=== PATIENT | male | born 1965 | race Caucasian/White ===

== ENCOUNTER → 2016-10-17 | Day surgery (SDC) | payer OTHER ==
[~2016-10-17] MED LIST: ASPI81TA81 PO; DIGO0.25 PO; FLUO60TA PO; FURO80TA PO; GABA300C5 PO; INSU1INJ14 SQ; LOSA50TA PO; MAGN250T9 PO; MEPERIDINE HCL 25 MG/ML VIAL IV ONE; MIDAZOLAM HCL 2 MG/2 ML VIAL IV ONE; MIRA33504 PO; OXYC1CAP PO; PROPOFOL 200 MG/20 ML AMP IV ONE; SIMV20TA PO; SODIUM CHLORIDE 0.9% 10 ML VIAL ONE; TEMA15CA PO; TRIAMCINOLONE ACETONIDE 40 MG/ML VIAL I-ARTICULR ONE; WARF-23 PO
--- NOTE | 2016-10-24 08:17 | M6 ---
cc: CHRISTIANO JEFFERY M.D., WILLIAM R. M.D. DATE: 10/17/2016 DATE OF : 1965 PROCEDURE Fluoroscopically guided T1 translaminar epidural steroid injection left of the midline. PREPROCEDURE NOTE Mr. Lopez was seen back in November of 2015 with left upper extremity pain and cervical bulging disc. His symptoms resolved following two cervical epidural steroid injections. Then in April the patient had an extensive heart surgery during which time his left arm was extended laterally and in a cephalad direction. When he woke up from the surgery his left arm was numb and flaccid and that has been slowly returning so it is possible that much of his left arm pain is from a brachial plexus stretch injury. However, we are proceeding with a single cervical epidural steroid injection today in hopes of providing some improvement. PROCEDURE NOTE History and physical was completed and signed. Consent was signed. Procedure site was marked. Medications were listed and reconciled. Pain score was recorded. Allergies were noted. Timeout was taken. Fluoroscopy time was recorded where applicable. Sedation was administered or directed by Dr. Chery. The patient was given oxygen. The patient was monitored by a registered nurse. Total procedure time was greater than 15 minutes. An IV was started, blood pressure cuff, pulse oximeter and EKG were applied. The patient was placed in the prone position on a Krzysztof table, sedated with small amounts of Demerol and propofol titrated to effect. Vital signs were monitored and remained stable throughout the procedure. The cervical area was prepped with alcohol and 10% Betadine solution, draped with sterile drapes. Fluoroscopy was used to visualize the T1-T2 translaminar space. The skin was infiltrated with 1% Xylocaine using a 27-gauge needle. Then a 3-1/2 inch, 18-gauge Hollis needle was advanced using fluoroscopic guidance and the [id number] technique into the epidural space at T1-T2 slightly to the left of the midline. There was negative aspiration for blood or any other type of fluid and the patient was given 6 mL of normal saline and 60 mg of Kenalog. Following the procedure the patient was taken to the recovery room with stable vital signs neurologically intact. W. MD ADELSO Merino/MELINDA /9:24 AM /8:12 AM
== END | disposition home or self-care (01) ==
LOC: PHSDC 08:09
PROVIDERS: ATTEND Pain Medicine Interventional Pain Medicine
DX: M54.2 Cervicalgia (principal)
CPT/HCPCS: 62321; 99152; J2175; J2250; J3301

== ENCOUNTER 2018-01-03 15:39 | Inpatient (IN) | payer OTHER ==
[~2018-01-03] VITALS: Ht 185.4 cm; Wt 88.6 kg
[~2018-01-03 15:39] MED LIST changes: -MEPERIDINE HCL 25 MG/ML VIAL IV ONE; -MIDAZOLAM HCL 2 MG/2 ML VIAL IV ONE; -PROPOFOL 200 MG/20 ML AMP IV ONE; -SODIUM CHLORIDE 0.9% 10 ML VIAL ONE; -TRIAMCINOLONE ACETONIDE 40 MG/ML VIAL I-ARTICULR ONE
[2018-01-03 16:04] VITALS: BP 150/67; PULSE 99; RESP 18; TEMP 101.2; O2SAT 97
[2018-01-03] MEDS ORDERED: VICT18IN SQ (19:26)
[2018-01-03 19:36] VITALS: TEMP 99.7
--- NOTE | 2018-01-03 19:52 | PD ---
HPI Chief Complaint: Pain: Acute or Chronic Time Seen by Provider: 19:31 Travel History International Travel<30 days: No Contact w/Intl Traveler<30days: No Traveled to known affect area: No History of Present Illness HPI This patient is brought in 4 change in mental status. He has been confused. He has had visual hallucination. He has a tremor. He drinks alcohol heavily on most days. His last drink was yesterday. The patient's girlfriend called his mom to report that she was concerned about his mental status. She brought him to the ER. No head injury. He arrived with a temperature of 101.2. He has runny nose congestion and occasional cough. No vomiting or diarrhea or urinary complaints. He does not have headache or neck pain or neck stiffness. No alleviating factors. No exacerbating factors. Duration 2 days PFSH Past Medical History Hx Anticoagulant Therapy: Yes Depression: Yes Cardiovascular Problems: Yes (CONGENITAL HEART DISEASE) High Cholesterol: Yes Diabetes: Yes Patient Takes Glucophage: No Diminished Hearing: No Past Surgical History Coronary Artery Bypass Graft: Yes Valve Replacement: Yes Social History Alcohol Use: Yes (OCCASIONALLY, HAVENT DRANK FOR OVER A MONTH) Tobacco Use: No Substance Use: No Allergies-Medications (Allergen,Severity, Reaction): Coded Allergies: penicillin G (Unverified Allergy, Mild, 01/03/18) Reported Meds & Prescriptions Reported Meds & Active Scripts Active Reported Victoza Inj (Liraglutide Inj) 18 Mg/3 Ml Pen 0.6 Mg SQ DAILY Aspir-81 (Aspirin) 81 Mg Tabdr 1 Tab PO DAILY Digoxin 0.25 Mg Tab 0.25 Mg PO DAILY Fluoxetine (Fluoxetine HCl) 60 Mg Tab 60 Mg PO DAILY Furosemide 80 Mg Tab 80 Mg PO BID Gabapentin 300 Mg Cap 300 Mg PO TID Tresiba Flextouch Pen Inj (Insulin Degludec Inj) 300 unit/3 ML Pen 42 Units SQ HS Losartan (Losartan Potassium) 50 Mg Tab 50 Mg PO DAILY Magnesium Oxide 250 Mg Tab 250 Mg PO BID Miralax Powder (Polyethylene Glycol 3350 Powder) 17 Gm Powd 119 Gm PO DAILY Mix and dissolve one measuring cap-ful (17 grams) in water or juice. Oxycodone (Oxycodone HCl) 5 Mg Cap 5 Mg PO Q6H PRN Simvastatin 20 Mg Tab 20 Mg PO DAILY Temazepam 15 Mg Cap 15 Mg PO HS PRN Warfarin 5 Mg Tab 5 Mg PO DAILY Review of Systems General / Constitutional: Positive: Fever Eyes: No: Visual changes HENT: Positive: Rhinorrhea, Congestion, No: Headaches Cardiovascular: No: Chest Pain or Discomfort Respiratory: Positive: Cough, No: Shortness of Breath Gastrointestinal: No: Abdominal Pain Genitourinary: No: Dysuria Musculoskeletal: Positive: Weakness, No: Pain Skin: No Rash Neurologic: Positive: Weakness, Tremor, Change in Mentation Psychiatric: Positive: Substance Abuse, No: Depression Endocrine: No: Polydipsia Hematologic/Lymphatic: No: Easy Bruising Physical Exam Narrative GENERAL: Disheveled well-developed patient in no apparent distress. SKIN: Focused skin assessment reveals no rash and nodules. Skin is Warm and dry. Has macular erythema of the facial cheeks HEAD: Atraumatic. Normocephalic. EYES: Pupils equal and round. No scleral icterus. No injection or drainage. ENT: No nasal bleeding or discharge. Mucous membranes pink and moist. Nares shows clear rhinorrhea NECK: Trachea midline. No JVD. Supple with full range of motion. No meningeal signs. CARDIOVASCULAR: Regular rate and rhythm. No murmur appreciated. RESPIRATORY: No accessory muscle use. Clear to auscultation. Breath sounds equal bilaterally. GASTROINTESTINAL: Abdomen soft, non-tender, nondistended. Hepatic and splenic margins not palpable. MUSCULOSKELETAL: No obvious deformities. No clubbing. No cyanosis. No edema. NEUROLOGICAL: Awake and alert. No obvious cranial nerve deficits. Motor grossly within normal limits. Normal speech. PSYCHIATRIC: Appropriate mood and affect; insight and judgment seems reduced . Data Data Last Documented VS Vital Signs Date Time Temp Pulse Resp B/P (MAP) Pulse Ox O2 Delivery O2 Flow Rate FiO2 01/03/18 19:36 99.7 01/03/18 16:04 99 18 150/67 (94) 97 Orders Orders Iv Access Insert/Monitor (01/03/18 19:44) Complete Blood Count With Diff (01/03/18 19:44) Comprehensive Metabolic Panel (01/03/18 19:44) Urinalysis - C+S If Indicated (01/03/18 19:44) Chest, Single Ap (01/03/18 ) Influenzae A/B Antigen (01/03/18 19:44) Alcohol (Ethanol) (01/03/18 19:44) Chlordiazepoxide (Librium) (01/03/18 19:45) Labs Laboratory Tests Test 01/03/18 20:15 White Blood Count 14.0 TH/MM3 Red Blood Count 3.94 MIL/MM3 Hemoglobin 12.3 GM/DL Hematocrit 36.2 % Mean Corpuscular Volume 91.9 FL Mean Corpuscular Hemoglobin 31.1 PG Mean Corpuscular Hemoglobin Concent 33.9 % Red Cell Distribution Width 13.2 % Platelet Count 355 TH/MM3 Mean Platelet Volume 9.6 FL Neutrophils (%) (Auto) 85.2 % Lymphocytes (%) (Auto) 4.6 % Monocytes (%) (Auto) 9.8 % Eosinophils (%) (Auto) 0.0 % Basophils (%) (Auto) 0.4 % Neutrophils # (Auto) 11.9 TH/MM3 Lymphocytes # (Auto) 0.6 TH/MM3 Monocytes # (Auto) 1.4 TH/MM3 Eosinophils # (Auto) 0.0 TH/MM3 Basophils # (Auto) 0.1 TH/MM3 CBC Comment DIFF FINAL Differential Comment Urine Color YELLOW Urine Turbidity CLEAR Urine pH 6.0 Urine Specific [place] 1.010 Urine Protein 30 mg/dL Urine Glucose (UA) 1000 mg/dL Urine Ketones 10 mg/dL Urine Occult Blood SMALL Urine Nitrite NEG Urine Bilirubin NEG Urine Urobilinogen 2.0 MG/DL Urine Leukocyte Esterase NEG Urine WBC LESS THAN 1 /hpf Urine Squamous Epithelial Cells <1 /hpf Microscopic Urinalysis Comment CULT NOT INDICATED MDM Medical Decision Making Medical Screen Exam Complete: Yes Emergency Medical Condition: Yes Medical Record Reviewed: Yes Differential Diagnosis Alcohol withdrawal, intoxication, flu syndrome, sepsis, UTI, pneumonia Narrative Course I have reviewed the patient's electronic medical record. Have ordered extensive workup. Initially was 101.2 temperature now down to 99.7 spontaneously Patient is an alcoholic. I suspect he is in some degree of withdrawal given his confusion and tremor Gave him a dose of Librium Lab studies sent Influenza swab is negative I reviewed his chest x-ray which is normal Does not have any meningeal signs I suspect he will require a alcohol withdrawal admission. I gave him a dose of Librium. Will review the labs and assist with disposition Sepsis Criteria SIRS Criteria (2 or more): Temp > 100.9 or < 96.8 Yoandy Ferguson MD Jan 03, 2018 19:52
--- NOTE | 2018-01-03 20:36 | RADRPT ---
EXAM DATE/TIME: 01/03/2018 20:06 [facility] COMPARISON: CHEST SINGLE AP, May 18, 2016, 14:33. INDICATIONS : Fever starting today MEDICAL HISTORY : Cardiovascular disease. Hypertension. Diabetes mellitus type 2.Hepatitis. SURGICAL HISTORY : CABG. Valve replacement. Cardiac stent ENCOUNTER: Initial ACUITY: 1 day PAIN SCORE: 0/10 LOCATION: Bilateral chest FINDINGS: A single view of the chest demonstrates postoperative median sternotomy phase Global cardiomegaly. Pr evious effusions and basilar airspace disease have resolved. No pneumothorax. CONCLUSION: 1. Cardiomegaly. No acute findings. Mani Robison MD on January 03, 2018 at 20:33 Board Certified Radiologist. This report was verified electronically.
[2018-01-03 20:39] LABS: BILIRUBIN, URINE NEG (NEG); BLOOD, URINE SMALL (NEG); GLUCOSE,URINE 1000 mg/dL (NEG); KETONE, URINE 10 mg/dL (NEG); NITRITE,URINE NEG (NEG); SQUAMOUS EPITHELIAL CELL URINE <1 /hpf (0-5); URINE COLOR YELLOW (YELLW/STRAW); URINE LEUKOCYTE ESTERASE NEG (NEG)
[2018-01-03 20:46] LABS: AUTOMATED NEUTROPHIL # 11.9 TH/MM3 (1.8-7.7); BASOPHIL # 0.1 TH/MM3 (0-0.2); BASOPHIL % 0.4 % (0.0-2.0); HEMATOCRIT 36.2 % (39.0-51.0); HEMOGLOBIN 12.3 GM/DL (13.0-17.0); LYMPH % 4.6 % (9.0-44.0); LYMPHOCYTE # 0.6 TH/MM3 (1.0-4.8); MEAN CELL VOLUME 91.9 FL (80.0-100.0); MEAN CORPUSCULAR HEMOGLOBIN 31.1 PG (27.0-34.0); MEAN CORPUSCULAR HGB CONC 33.9 % (32.0-36.0); MEAN PLATELET VOLUME 9.6 FL (7.0-11.0); MONO % 9.8 % (0.0-8.0); MONOCYTE # 1.4 TH/MM3 (0-0.9); NEUT % 85.2 % (16.0-70.0); PLATELET COUNT 355 TH/MM3 (150-450); RED BLOOD COUNT 3.94 MIL/MM3 (4.50-5.90); RED CELL DISTRIBUTION WIDTH 13.2 % (11.6-17.2)
[2018-01-03 21:17] LABS: ALKALINE PHOSPHATASE 88 U/L (45-117); ALT (GPT) 39 U/L (12-78); AST (GOT) 83 U/L (15-37); BICARBONATE 27.9 MEQ/L (21.0-32.0); BLOOD UREA NITROGEN 26 MG/DL (7-18); CALCIUM 8.3 MG/DL (8.5-10.1); CHLORIDE 81 MEQ/L (98-107); CREATININE 1.23 MG/DL (0.60-1.30); GLOMERULAR FILTRATION RATE 62 ML/MIN (>89); GLUCOSE,RANDOM 249 MG/DL (74-106); TOTAL BILIRUBIN ADULT 1.4 MG/DL (0.2-1.0); TOTAL PROTEIN 7.7 GM/DL (6.4-8.2)
[2018-01-03 21:27] LABS: ALBUMIN 2.1 GM/DL (3.4-5.0)
[2018-01-03 21:28] LABS: SODIUM (NA) 120 MEQ/L (136-145)
[2018-01-03] MEDS ORDERED: ACETAMINOPHEN 325 MG TAB PO ONE (21:30)
[2018-01-03] MEDS ORDERED: SODIUM CHLOR 0.9% 1000 ML INJ 1,000 ML IV ONE (21:30)
[2018-01-03 22:28] LABS: INTERNATIONAL NORMALIZED RATIO 1.5 RATIO; PROTHROMBIN TIME - PATIENT 15.4 SEC (9.8-11.6)
[2018-01-03] MEDS ORDERED: IOHEXOL 350 MG/ML 10 ML VIAL (for RAD DIAG) IVCONTRAST ONE (22:31)
--- NOTE | 2018-01-03 22:44 | RADRPT ---
EXAM DATE/TIME: 01/03/2018 22:13 [facility] COMPARISON: No previous studies available for comparison. INDICATIONS : Left sided pelvic/back pain. IV CONTRAST: 100 cc Omnipaque 350 (iohexol) IV ; Cumulative dose for multiple exams. ORAL CONTRAST: No oral contrast ingested. RADIATION DOSE: 14.03 CTDIvol (mGy) MEDICAL HISTORY : Hepatitis C. Diabetes mellitus type 2. Hypertension. SURGICAL HISTORY : CABG ENCOUNTER: Initial ACUITY: 1 week PAIN SCALE: 7/10 LOCATION: Left Paraspinal TECHNIQUE: Volumetric scanning of the abdomen and pelvis was performed. Using automated exposure control and ad justment of the mA and/or kV according to patient size, radiation dose was kept as low as reasonably achievable to obtain optimal diagnostic quality images. DICOM format image data is available electro nically for review and comparison. FINDINGS: Heart is enlarged. Minimal basal atelectasis. No acute findings in the liver, spleen, adrenals, kidneys or pancreas. Numerous calcified gallstones present. No biliary ductal dilatation. No masses identified within the pelvis. No bowel obstruction. No free air or free fluid. No adenopath y. There is a probable left hip joint effusion and there are some inflammatory or edematous changes in t he musculature around the anterior left hip. This may be better evaluated with MRI. Additional strand ing of fat in the lower anterior abdominal wall as well. This could be related to prior injections. CONCLUSION: 1. Probable left hip joint effusion with some inflammatory or edematous changes in the musculature ar ound the anterior left hip. Would be better evaluated with MRI. 2. No acute findings within the abdomen and pelvis. Multiple calcified gallstones. Small hiatal herni a. Mani Robison MD on January 03, 2018 at 22:35 Board Certified Radiologist. This report was verified electronically.
--- NOTE | 2018-01-03 22:48 | RADRPT ---
EXAM DATE/TIME: 01/03/2018 22:13 [facility] COMPARISON: No previous studies available for comparison. INDICATIONS : Left side back pain. IV CONTRAST: 100 cc Omnipaque 350 (iohexol) IV ; Cumulative dose for multiple exams. RADIATION DOSE: CTDIvol (mGy) ; Reconstructed from previous dataset, no dose MEDICAL HISTORY : Hypertension. Diabetes mellitus type 2. Hepatitis C. SURGICAL HISTORY : CABG ENCOUNTER: Initial ACUITY: 1 week PAIN SCALE: 7/10 LOCATION: Left Paraspinal TECHNIQUE: Volumetric scanning of the lumbar spine was performed. Multiplanar reconstructions in the sagittal, coronal and oblique axial planes were performed. Using automated exposure control and adjustment of the mA and/or kV according to patient size, radiation dose was kept as low as reasonably achievable t o obtain optimal diagnostic quality images. DICOM format image data is available electronically for review and comparison. FINDINGS: Mild degenerative disc disease in the lumbar spine. At L3-4-5 there are broad-based posterior disc bu lges with mild encroachment on the lateral recesses and neural foramina. No significant abnormality a t L1 and L2. Mild scoliosis. CONCLUSION: 1. Multiple disc bulges in the lower lumbar spine with mild encroachment on the lateral recesses and neural foramina. No acute fracture. Mild scoliosis. Mild degenerative disc disease. Mani Robison MD on January 03, 2018 at 22:44 Board Certified Radiologist. This report was verified electronically.
[2018-01-03] MEDS ORDERED: CEFEPIME INJ 2,000 MG in SODIUM CHLORIDE 0.9% INJ 100 ML IV ONE (23:00)
[2018-01-03] MEDS ORDERED: VANCOMYCIN INJ 1,000 MG in SODIUM CHLOR 0.9% 250 ML INJ 250 ML IV ONE (23:00)
--- NOTE | 2018-01-03 23:05 | PD ---
Data Data Last Documented VS Vital Signs Date Time Temp Pulse Resp B/P (MAP) Pulse Ox O2 Delivery O2 Flow Rate FiO2 01/03/18 19:36 99.7 01/03/18 16:04 99 18 150/67 (94) 97 Orders Orders Iv Access Insert/Monitor (01/03/18 19:44) Complete Blood Count With Diff (01/03/18 19:44) Comprehensive Metabolic Panel (01/03/18 19:44) Urinalysis - C+S If Indicated (01/03/18 19:44) Chest, Single Ap (01/03/18 ) Influenzae A/B Antigen (01/03/18 19:44) Alcohol (Ethanol) (01/03/18 19:44) Chlordiazepoxide (Librium) (01/03/18 19:45) Sodium Chlor 0.9% 1000 Ml Inj (Ns 1000 M (01/03/18 21:30) Acetaminophen (Tylenol) (01/03/18 21:30) Digoxin (01/03/18 21:32) Prothrombin Time / Inr (Pt) (01/03/18 21:32) Act Partial Throm Time (Ptt) (01/03/18 21:32) Ct Abd/Pel W Iv Contrast(Rout) (01/03/18 ) Ct Lumb Spine W Iv Contrast (01/03/18 ) Blood Culture (01/03/18 21:52) Iohexol 350 Inj (Omnipaque 350 Inj) (01/03/18 22:31) Vancomycin Inj (Vancomycin Inj) (01/03/18 23:00) Cefepime Inj (Maxipime Inj) (01/03/18 23:00) Labs Laboratory Tests Test 01/03/18 20:15 01/03/18 22:08 White Blood Count 14.0 TH/MM3 Red Blood Count 3.94 MIL/MM3 Hemoglobin 12.3 GM/DL Hematocrit 36.2 % Mean Corpuscular Volume 91.9 FL Mean Corpuscular Hemoglobin 31.1 PG Mean Corpuscular Hemoglobin Concent 33.9 % Red Cell Distribution Width 13.2 % Platelet Count 355 TH/MM3 Mean Platelet Volume 9.6 FL Neutrophils (%) (Auto) 85.2 % Lymphocytes (%) (Auto) 4.6 % Monocytes (%) (Auto) 9.8 % Eosinophils (%) (Auto) 0.0 % Basophils (%) (Auto) 0.4 % Neutrophils # (Auto) 11.9 TH/MM3 Lymphocytes # (Auto) 0.6 TH/MM3 Monocytes # (Auto) 1.4 TH/MM3 Eosinophils # (Auto) 0.0 TH/MM3 Basophils # (Auto) 0.1 TH/MM3 CBC Comment DIFF FINAL Differential Comment Urine Color YELLOW Urine Turbidity CLEAR Urine pH 6.0 Urine Specific [place] 1.010 Urine Protein 30 mg/dL Urine Glucose (UA) 1000 mg/dL Urine Ketones 10 mg/dL Urine Occult Blood SMALL Urine Nitrite NEG Urine Bilirubin NEG Urine Urobilinogen 2.0 MG/DL Urine Leukocyte Esterase NEG Urine WBC LESS THAN 1 /hpf Urine Squamous Epithelial Cells <1 /hpf Microscopic Urinalysis Comment CULT NOT INDICATED Blood Urea Nitrogen 26 MG/DL Creatinine 1.23 MG/DL Random Glucose 249 MG/DL Total Protein 7.7 GM/DL Albumin 2.1 GM/DL Calcium Level 8.3 MG/DL Alkaline Phosphatase 88 U/L Aspartate Amino Transf (AST/SGOT) 83 U/L Alanine Aminotransferase (ALT/SGPT) 39 U/L Total Bilirubin 1.4 MG/DL Sodium Level 120 MEQ/L Potassium Level 4.2 MEQ/L Chloride Level 81 MEQ/L Carbon Dioxide Level 27.9 MEQ/L Anion Gap 11 MEQ/L Estimat Glomerular Filtration Rate 62 ML/MIN Digoxin Level 0.8 NG/ML Ethyl Alcohol Level LESS THAN 3 MG/DL Prothrombin Time 15.4 SEC Prothromb Time International Ratio 1.5 RATIO Activated Partial Thromboplast Time 34.8 SEC [facility] Supervised Visit with LIANNA: No Narrative Course The patient was initially evaluated by the previous provider and signed out to me at the beginning of my shift pending labs and disposition. See his note for further details. Briefly this is a 52-year-old male with history of heavy alcohol use, last drink yesterday, here with his mom for evaluation of visual hallucinations. Patient also has a fever. He denies headache. No neck pain or stiffness. On exam he is awake and alert. He denies cough or upper respiratory symptoms. No abdominal pain, nausea, vomiting, or diarrhea. He does report that he has been falling a lot lately and was recently provided a left lower back paraspinal injection by his primary care physician about a week ago for left lower back pain/sciatica pain. He states this pain has not improved since his injection. On physical exam the patient has several wounds to his lower extremities which he states is from falls. There are no signs of infection to these wounds. He has bilateral anterior knee ecchymosis. There is normal range of motion in bilateral lower extremities. Left lower back with moderate SI joint tenderness with mild midline lumbar spine tenderness. No saddle anesthesia. Normal range of motion in flexion and extension in bilateral upper and lower extremities. No nuchal rigidity or meningeal signs. Initial vital signs show heart rate 99, blood pressure 150/67, pulse ox 97% on room air, oral temp of 101.2F. CBC: WBC 14, hemoglobin 12.3, hematocrit 36.2, platelets 355, neutrophils 85%. CMP is remarkable for sodium 120, chloride 81, BUN 26, creatinine 1.23, GFR 62, random glucose 250. Alcohol level is negative. INR is 1.5. Influenza is negative. Chest x-ray: No acute findings. Cardiomegaly. CT abdomen pelvis: CONCLUSION: 1. Probable left hip joint effusion with some inflammatory or edematous changes in the musculature around the anterior left hip. Would be better evaluated with MRI. 2. No acute findings within the abdomen and pelvis. Multiple calcified gallstones. Small hiatal hernia. CT lumbar spine: CONCLUSION: 1. Multiple disc bulges in the lower lumbar spine with mild encroachment on the lateral recesses and neural foramina. No acute fracture. Mild scoliosis. Mild degenerative disc disease. 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 Case discussed with on-call orthopedist Dr. Lauren who recommends starting the patient on antibiotics and obtaining MRI of the left hip as well as lumbar spine if possible, and if there is a left hip effusion, recommends interventional radiology to obtain a sample. Patient is awake and alert. There are no meningeal signs on exam. He is conversive and lucid. He is able to range his left hip with only mild pain. Clinically he does not appear to have a septic arthritis. He is allergic to penicillin. He will be started on vancomycin and cefepime and will be admitted to the medical service. Case discussed with [facility] hospitalist Dr. Fitzpatrick who will admit the patient to his service. Diagnosis Primary Impression: Sepsis Qualified Codes: A41.9 - Sepsis, unspecified organism Additional Impressions: Hyponatremia Alcohol withdrawal Qualified Codes: F10.230 - Alcohol dependence with withdrawal, uncomplicated Admitting Information Admitting Physician Requests: it Zeb Portillo MD Jan 03, 2018 23:05
[2018-01-03 23:10] VITALS: BP 143/72; PULSE 107; RESP 16; O2SAT 98
[2018-01-03] MEDS ORDERED: LORazepam 1 MG TAB PO PRN (23:15)
[2018-01-03] MEDS ORDERED: SODIUM CHLOR 0.9% 1000 ML INJ 1,000 ML IV SCH (23:15)
[2018-01-03] MEDS ORDERED: FLUMAZENIL 0.5 MG/5 ML VIAL IV PUSH PRN (23:15)
[2018-01-03] MEDS ORDERED: Vancomycin Consult Pharmacy 1 EA OTHER SCH (23:15)
[2018-01-03] MEDS ORDERED: LORazepam 2 MG TAB PO PRN (23:15)
[2018-01-03] MEDS ORDERED: ONDANSETRON HCL 4 MG/2 ML VIAL IV PUSH PRN (23:15)
[2018-01-03] MEDS ORDERED: LORazepam 2 MG/ML VIAL IV PUSH PRN ×4 (23:15)
[2018-01-03] MEDS ORDERED: MORPHINE SULFATE 2 MG/ML SYRINGE IV PUSH PRN (23:30)
[2018-01-03] MEDS ORDERED: ACETAMINOPHEN 500 MG CPLT PO PRN (23:30)
[2018-01-04] VITALS (10 sets, daily range): BP systolic 127–170; BP diastolic 60–94; PULSE 89–117; RESP 18–22; TEMP 99.3–101.2; O2SAT 94–98
[2018-01-04] MEDS ORDERED: SODIUM CHLORIDE 0.9% IV SCH ×2
[2018-01-04] MEDS ORDERED: VANCOMYCIN IV SCH ×2
[2018-01-04 03:43] LABS: BASOPHIL # 0.1 TH/MM3 (0-0.2); BASOPHIL % 0.3 % (0.0-2.0); LYMPH % 3.4 % (9.0-44.0); LYMPHOCYTE # 0.5 TH/MM3 (1.0-4.8); MEAN CELL VOLUME 90.9 FL (80.0-100.0); MEAN CORPUSCULAR HEMOGLOBIN 31.2 PG (27.0-34.0); MEAN CORPUSCULAR HGB CONC 34.3 % (32.0-36.0); MEAN PLATELET VOLUME 8.6 FL (7.0-11.0); MONO % 6.6 % (0.0-8.0); NEUT % 89.7 % (16.0-70.0); PLATELET COUNT 322 TH/MM3 (150-450); RED BLOOD COUNT 3.85 MIL/MM3 (4.50-5.90); RED CELL DISTRIBUTION WIDTH 13.2 % (11.6-17.2); WHITE BLOOD COUNT 15.6 TH/MM3 (4.0-11.0)
[2018-01-04 03:53] LABS: INTERNATIONAL NORMALIZED RATIO 1.5 RATIO; PROTHROMBIN TIME - PATIENT 15.1 SEC (9.8-11.6)
[2018-01-04 04:43] LABS: ALBUMIN 1.9 GM/DL (3.4-5.0); ALKALINE PHOSPHATASE 76 U/L (45-117); ALT (GPT) 43 U/L (12-78); AST (GOT) 96 U/L (15-37); BICARBONATE 30.4 MEQ/L (21.0-32.0); BICARBONATE 30.7 MEQ/L (21.0-32.0); BLOOD UREA NITROGEN 21 MG/DL (7-18); CALCIUM 7.9 MG/DL (8.5-10.1); CHLORIDE 89 MEQ/L (98-107); CREATININE 0.92 MG/DL (0.60-1.30); GLOMERULAR FILTRATION RATE 89 ML/MIN (>89); GLUCOSE,RANDOM 128 MG/DL (74-106); SODIUM (NA) 130 MEQ/L (136-145); TOTAL BILIRUBIN ADULT 1.1 MG/DL (0.2-1.0); TOTAL PROTEIN 6.6 GM/DL (6.4-8.2)
[2018-01-04] MEDS: INSULIN ASPART SUPPLEMENTAL SCALE SQ SCH ×4 (08:00→22:19)
[2018-01-04] MEDS: 1/2 NS + KCL 20 MEQ INJ 1,000 ML IV SCH (10:07)
--- NOTE | 2018-01-04 10:24 | PD.CONS ---
HPI Service Orthopedic Surgeons Consult Requested By Reason for Consult Question of left hip effusion Primary Care Physician Unknown Admission Diagnosis Sepsis, hyponatremia, alcohol withdrawal Diagnoses: Chief Complaint: Fevers of unknown origin, alcohol withdrawal History of Present Illness Patient presents to [facility] with complaints of low back and left buttock pain. In addition, he has a history of alcoholism with concern for active withdrawal. He also has fevers of unknown origin with temperature of 102 on presentation and elevated white blood cell. CT scan of abdomen and pelvis demonstrated some concern for left hip effusion. Clinically, patient denies any left groin pain. He reports left buttock pain which feels very much like his known radiculopathy from his lumbar spine. Of note, he did have a lumbar epidural injection within the last week after which he states his pain increased. Patient is a poor historian and cannot provide any further information or details regarding his presentation. Review of Systems Constitutional: COMPLAINS OF: Fever Endocrine: DENIES: Polyuria Eyes: DENIES: Blurred vision Ears, nose, mouth, throat: DENIES: Throat pain Respiratory: DENIES: Cough Cardiovascular: DENIES: Chest pain Gastrointestinal: DENIES: Abdominal pain Genitourinary: DENIES: Urinary incontinence Musculoskeletal: COMPLAINS OF: Muscle aches, Back pain Integumentary: DENIES: Rash Hematologic/lymphatic: DENIES: Bruising Immunologic/allergic: DENIES: Eczema Neurologic: DENIES: Abnormal gait Psychiatric: DENIES: Anxiety Past Family Social History Past Medical History Chronic low back pain with radiculopathy, alcoholism, tetralogy of Fallot status post repair, hepatitis C, hypertension, diabetes Past Surgical History Multiple cardiac procedures Reported Medications Please see full list Allergies: Coded Allergies: penicillin G (Unverified Allergy, Mild, 01/03/18) Active Ordered Medications Current Medications Medications (Trade) Dose Ordered Sig/Shantal Route Start Time Stop Time Status Last Admin (NovoLOG SUPPLEMENTAL SCALE) 1 ACHS SLIDING SCALE SQ 01/04/18 08:00 (Romazicon Inj) 0.2 mg Q1M PRN IV PUSH 01/03/18 23:15 (Ativan) 1 mg Q4H PRN PO 01/03/18 23:15 (Ativan Inj) 1 mg Q4H PRN IV PUSH 01/03/18 23:15 (Ativan) 2 mg Q2H PRN PO 01/03/18 23:15 01/03/18 23:50 (Ativan Inj) 2 mg Q2H PRN IV PUSH 01/03/18 23:15 (Ativan Inj) 2 mg Q1H PRN IV PUSH 01/03/18 23:15 (Ativan Inj) 2 mg Q15M PRN IV PUSH 01/03/18 23:15 Sodium Chloride 1,000 ml @ 42 mls/hr [id number] IV 01/03/18 23:15 01/04/18 11:09 01/04/18 00:03 Pharmacy Profile Note 0 ml @ 0 mls/hr UNSCH OTHER 01/03/18 23:15 Cefepime HCl 2000 mg/Sodium Chloride 100 ml @ 200 mls/hr Q12H IV 01/04/18 11:00 (Zofran Inj) 4 mg Q6HR PRN IV PUSH 01/03/18 23:15 (Tylenol) 500 mg Q6H PRN PO 01/03/18 23:30 01/04/18 02:18 (Morphine Inj) 2 mg Q4H PRN IV PUSH 01/03/18 23:30 Potassium Chloride/Sodium Chloride 1,000 ml @ 50 mls/hr Q20H IV 01/04/18 09:30 01/04/18 10:07 (KCl) 40 meq Q4HR PO 01/04/18 12:00 01/04/18 16:01 Reported Meds & Active Scripts Active Reported Victoza Inj (Liraglutide Inj) 18 Mg/3 Ml Pen 0.6 Mg SQ DAILY Aspir-81 (Aspirin) 81 Mg Tabdr 1 Tab PO DAILY Digoxin 0.25 Mg Tab 0.25 Mg PO DAILY Fluoxetine (Fluoxetine HCl) 60 Mg Tab 60 Mg PO DAILY Furosemide 80 Mg Tab 80 Mg PO BID Gabapentin 300 Mg Cap 300 Mg PO TID Tresiba Flextouch Pen Inj (Insulin Degludec Inj) 300 unit/3 ML Pen 42 Units SQ HS Losartan (Losartan Potassium) 50 Mg Tab 50 Mg PO DAILY Magnesium Oxide 250 Mg Tab 250 Mg PO BID Miralax Powder (Polyethylene Glycol 3350 Powder) 17 Gm Powd 119 Gm PO DAILY Mix and dissolve one measuring cap-ful (17 grams) in water or juice. Oxycodone (Oxycodone HCl) 5 Mg Cap 5 Mg PO Q6H PRN Simvastatin 20 Mg Tab 20 Mg PO DAILY Temazepam 15 Mg Cap 15 Mg PO HS PRN Warfarin 5 Mg Tab 5 Mg PO DAILY Family History Noncontributory Social History Denies tobacco use. Reports alcohol consumption at least a couple beers per night Physical Exam Vital Signs Vital Signs Date Time Temp Pulse Resp B/P (MAP) Pulse Ox O2 Delivery O2 Flow Rate FiO2 01/04/18 08:44 99.4 89 20 127/60 (82) 97 01/04/18 08:05 99 01/04/18 04:00 100.3 94 22 150/70 (96) 98 01/04/18 00:00 101.2 106 19 156/79 (104) 98 01/03/18 23:10 107 16 143/72 (95) 98 Nasal Cannula 2.00 01/03/18 19:36 99.7 01/03/18 16:04 101.2 99 18 150/67 (94) 97 Physical Exam Awake, alert, no acute distress. Mildly confused when asking questions. Normocephalic Pupils equal No JVD Moist mucous membranes Nonlabored respirations Regular rate Soft nontender abdomen Left lower extremity: Demonstrates full active range of motion of the hip with minimal discomfort. Reports the pain he does have is in his left buttocks. He denies any groin pain with range of motion. He has full strength throughout his left lower extremity. Sensation intact. Dorsalis pedis pulses palpable. Small abrasions over anterior aspect of left knee. Bilateral upper extremities and right lower extremity: No tenderness to palpation, visible deformities or significant erythema or swelling. Full active range of motion throughout. Sensation intact. Brisk cap refill. No rash Normal affect although relatively confused with questioning Laboratory Laboratory Tests Test 01/03/18 20:15 01/03/18 22:08 01/03/18 23:59 01/04/18 03:29 White Blood Count 14.0 15.6 Red Blood Count 3.94 3.85 Hemoglobin 12.3 12.0 Hematocrit 36.2 35.0 Mean Corpuscular Volume 91.9 90.9 Mean Corpuscular Hemoglobin 31.1 31.2 Mean Corpuscular Hemoglobin Concent 33.9 34.3 Red Cell Distribution Width 13.2 13.2 Platelet Count 355 322 Mean Platelet Volume 9.6 8.6 Neutrophils (%) (Auto) 85.2 89.7 Lymphocytes (%) (Auto) 4.6 3.4 Monocytes (%) (Auto) 9.8 6.6 Eosinophils (%) (Auto) 0.0 0.0 Basophils (%) (Auto) 0.4 0.3 Neutrophils # (Auto) 11.9 14.0 Lymphocytes # (Auto) 0.6 0.5 Monocytes # (Auto) 1.4 1.0 Eosinophils # (Auto) 0.0 0.0 Basophils # (Auto) 0.1 0.1 CBC Comment DIFF FINAL DIFF FINAL Differential Comment Urine Color YELLOW Urine Turbidity CLEAR Urine pH 6.0 Urine Specific [place] 1.010 Urine Protein 30 Urine Glucose (UA) 1000 Urine Ketones 10 Urine Occult Blood SMALL Urine Nitrite NEG Urine Bilirubin NEG Urine Urobilinogen 2.0 Urine Leukocyte Esterase NEG Urine WBC LESS THAN 1 Urine Squamous Epithelial Cells <1 Microscopic Urinalysis Comment CULT NOT INDICATED Blood Urea Nitrogen 26 21 Creatinine 1.23 0.90 Random Glucose 249 128 Total Protein 7.7 6.6 Albumin 2.1 1.9 Calcium Level 8.3 7.9 Alkaline Phosphatase 88 76 Aspartate Amino Transf (AST/SGOT) 83 96 Alanine Aminotransferase (ALT/SGPT) 39 43 Total Bilirubin 1.4 1.1 Sodium Level 120 127 130 Potassium Level 4.2 3.1 Chloride Level 81 89 Carbon Dioxide Level 27.9 30.4 Anion Gap 11 11 Estimat Glomerular Filtration Rate 62 89 Digoxin Level 0.8 Ethyl Alcohol Level LESS THAN 3 Prothrombin Time 15.4 15.1 Prothromb Time International Ratio 1.5 1.5 Activated Partial Thromboplast Time 34.8 Date/Time Source Procedure Growth Status 01/03/18 22:00 Blood Peripheral Aerobic Blood Culture Pending Received 01/03/18 22:00 Blood Peripheral Anaerobic Blood Culture Pending Received 01/03/18 20:15 Nasal Washing Influenza Types A,B Antigen (CHELSI) - Final NEGATIVE FOR FLU A AND B ANTIGEN.... Complete Result Diagram: 01/04/18 0329 01/04/18 0329 Imaging Last 48 hours Impressions Lumbar Spine CT 01/03/18 0000 Signed Impressions: Service Date/Time: Wednesday, January 03, 2018 22:13 - CONCLUSION: 1. Multiple disc bulges in the lower lumbar spine with mild encroachment on the lateral recesses and neural foramina. No acute fracture. Mild scoliosis. Mild degenerative disc disease. Mani Robison MD Chest X-Ray 01/03/18 0000 Signed Impressions: Service Date/Time: Wednesday, January 03, 2018 20:06 - CONCLUSION: 1. Cardiomegaly. No acute findings. Mani Robison MD Abdomen/Pelvis CT 01/03/18 0000 Signed Impressions: Service Date/Time: Wednesday, January 03, 2018 22:13 - CONCLUSION: 1. Probable left hip joint effusion with some inflammatory or edematous changes in the musculature around the anterior left hip. Would be better evaluated with MRI. 2. No acute findings within the abdomen and pelvis. Multiple calcified gallstones. Small hiatal hernia. Mani Robison MD Assessment & Plan Assessment and Plan 52-year-old gentleman who presents with alcohol withdrawal and concern for fevers of unknown origin CT scan reviewed which demonstrates a question of possible left hip effusion. However, on clinical exam he has minimal if any signs of septic arthritis especially in his left hip. He complains mostly of left buttock pain with any movement of the extremity and not groin pain. In addition he demonstrates full active range of motion with minimal discomfort. At this point if there is still concern for a left hip effusion which could be causing his fevers, I would continue to recommend an MRI as I did last night when I was consulted by the ED. If he is unable to obtain an MRI, I would recommend a consult for interventional radiology for possible aspiration. On CT scan there is very small if any hip effusion with no appreciable fluid/abscess collection that would require drainage. Based on the patient's complaints, I would be more concerned that he could have something in his lumbar spine given his recent epidural injection and his complaints of increased radiculopathy in his left buttocks. Could consider an MRI of his lumbar spine to rule out epidural abscess versus discitis. Patient should continue to have [facility] protocol for alcohol withdrawal. Will continue to follow as patient's mental status clears. Would continue antibiotics given his fevers and elevated WBC on presentation. mAi Lauren MD Jan 04, 2018 10:24
[2018-01-04 10:45] LABS: BICARBONATE 33.9 MEQ/L (21.0-32.0); CALCIUM 8.5 MG/DL (8.5-10.1); CREATININE 0.96 MG/DL (0.60-1.30)
[2018-01-04] MEDS ORDERED: CEFEPIME INJ 2,000 MG in SODIUM CHLORIDE 0.9% INJ 100 ML IV SCH (11:00)
[2018-01-04] MEDS: POTASSIUM CHLORIDE 20 MEQ CONTROLLED RELEASE TAB PO SCH ×2 (11:33→15:54)
--- NOTE | 2018-01-04 12:07 | HHI.HP ---
HPI Service [facility] Hospital[facility] Primary Care Physician Unknown Admission Diagnosis Sepsis, hyponatremia, alcohol withdrawal Chief Complaint: brought by family for Alerted mental status Travel History International Travel<30 Days: No Contact w/Intl Traveler <30 Da: No Traveled to Known Affected Are: No History of Present Illness This is a 52-year-old male patient with past medical history which includes tetralogy of flow repaired as a infant he continues to follow with [facility], prosthetic pulmonary and Tricuspid cardiac valves with post op PE, atrial fibrillation on Coumadin, CAD s/p cardiac stent and CABG, hypertension, DM, Hepatitis C, hyperlipidemia, ETOH abuse last alcoholic drink was 2 days ago. Patient presented to the ER last night for visual hallucinations and fever, which patient denies at this time. Patient is a poor historian and information gathered from patient's mother who is at bedside, patient and prior charting. Patient has been feeling unwell for approximately the past 2 weeks. He has not been able to go to work due to left hip and back pain. Patient has also been falling and off balance. Patient reports he had a steroid injection at his PCP office 1.5 to 2 weeks ago. He states this pain has not improved since his injection. Patient does endorse fevers and chills but is unable to say when the fever or chills started. Patient denies SOB, chest pain N/V/D/C. Initial vital signs show heart rate 99, blood pressure 150/67, pulse ox 97% on room air, oral temp of 101.2F. CBC: WBC 14, hemoglobin 12.3, hematocrit 36.2, platelets 355, neutrophils 85%. CMP is remarkable for sodium 120, chloride 81, BUN 26, creatinine 1.23, GFR 62, random glucose 250. Alcohol level is negative. INR is 1.5. CT abdomen pelvis: CONCLUSION: 1. Probable left hip joint effusion with some inflammatory or edematous changes in the musculature around the anterior left hip. Would be better evaluated with MRI. 2. No acute findings within the abdomen and pelvis. Multiple calcified gallstones. Small hiatal hernia. CT lumbar spine: CONCLUSION: 1. Multiple disc bulges in the lower lumbar spine with mild encroachment on the lateral recesses and neural foramina. No acute fracture. Mild scoliosis. Mild degenerative disc disease. Review of Systems ROS Limitations: Poor Historian Past Family Social History Past Medical History tetralogy of flow repaired as a he continues to follow with [facility], prosthetic pulmonary and Tricuspid cardiac valves with post op PE, atrial fibrillation on Coumadin, CAD s/p cardiac stent and CABG, hypertension, DM, Hepatitis C, hyperlipidemia, ETOH abuse Past Surgical History Repair of tetralogy of flow as an prostatic heart valve in pulmonary and Tricuspid valve Cardiac stent placement CABG Reported Medications Victoza Inj (Liraglutide Inj) 18 Mg/3 Ml Pen 0.6 Mg SQ DAILY Aspir-81 (Aspirin) 81 Mg Tabdr 1 Tab PO DAILY Digoxin 0.25 Mg Tab 0.25 Mg PO DAILY Fluoxetine (Fluoxetine HCl) 60 Mg Tab 60 Mg PO DAILY Furosemide 80 Mg Tab 80 Mg PO BID Gabapentin 300 Mg Cap 300 Mg PO TID Tresiba Flextouch Pen Inj (Insulin Degludec Inj) 300 unit/3 ML Pen 42 Units SQ HS Losartan (Losartan Potassium) 50 Mg Tab 50 Mg PO DAILY Magnesium Oxide 250 Mg Tab 250 Mg PO BID Miralax Powder (Polyethylene Glycol 3350 Powder) 17 Gm Powd 119 Gm PO DAILY Mix and dissolve one measuring cap-ful (17 grams) in water or juice. Oxycodone (Oxycodone HCl) 5 Mg Cap 5 Mg PO Q6H PRN Simvastatin 20 Mg Tab 20 Mg PO DAILY Temazepam 15 Mg Cap 15 Mg PO HS PRN Warfarin 5 Mg Tab 5 Mg PO DAILY Allergies: Coded Allergies: penicillin G (Unverified Allergy, Mild, 01/03/18) Family History Noncontributory Social History Daily EtOH use patient reports 2-4 beers per day. Uses chewing tobacco daily Denies illicit drug use Physical Exam Vital Signs Vital Signs Date Time Temp Pulse Resp B/P (MAP) Pulse Ox O2 Delivery O2 Flow Rate FiO2 01/04/18 08:44 99.4 89 20 127/60 (82) 97 01/04/18 08:05 99 01/04/18 04:00 100.3 94 22 150/70 (96) 98 01/04/18 00:00 101.2 106 19 156/79 (104) 98 01/03/18 23:10 107 16 143/72 (95) 98 Nasal Cannula 2.00 01/03/18 19:36 99.7 01/03/18 16:04 101.2 99 18 150/67 (94) 97 Physical Exam GENERAL: This is a well-nourished, well-developed patient, ill appearing SKIN: scattered lower extremity ecchymosis and healing abrasions HEAD: Atraumatic. Normocephalic. No temporal or scalp tenderness. EYES: Extraocular motions intact. No scleral icterus. No injection or drainage. CARDIOVASCULAR: RESPIRATORY: Clear to auscultation. Breath sounds equal bilaterally. GASTROINTESTINAL: Abdomen soft, non-tender, nondistended. No hepato-splenomegaly , or palpable masses. No guarding. MUSCULOSKELETAL: Pain with internal rotation of the left hip NEUROLOGICAL: Awake and alert. Oriented x3 but slow to respond and confused to details. Non focal deficits. mild bilateral tremor appreciated. Motor and sensory grossly within normal limits. 4-5 out of 5 muscle strength in all muscle groups. Normal speech. Laboratory Laboratory Tests Test 01/03/18 20:15 01/03/18 22:08 01/03/18 23:59 01/04/18 03:29 White Blood Count 14.0 15.6 Red Blood Count 3.94 3.85 Hemoglobin 12.3 12.0 Hematocrit 36.2 35.0 Mean Corpuscular Volume 91.9 90.9 Mean Corpuscular Hemoglobin 31.1 31.2 Mean Corpuscular Hemoglobin Concent 33.9 34.3 Red Cell Distribution Width 13.2 13.2 Platelet Count 355 322 Mean Platelet Volume 9.6 8.6 Neutrophils (%) (Auto) 85.2 89.7 Lymphocytes (%) (Auto) 4.6 3.4 Monocytes (%) (Auto) 9.8 6.6 Eosinophils (%) (Auto) 0.0 0.0 Basophils (%) (Auto) 0.4 0.3 Neutrophils # (Auto) 11.9 14.0 Lymphocytes # (Auto) 0.6 0.5 Monocytes # (Auto) 1.4 1.0 Eosinophils # (Auto) 0.0 0.0 Basophils # (Auto) 0.1 0.1 CBC Comment DIFF FINAL DIFF FINAL Differential Comment Urine Color YELLOW Urine Turbidity CLEAR Urine pH 6.0 Urine Specific [place] 1.010 Urine Protein 30 Urine Glucose (UA) 1000 Urine Ketones 10 Urine Occult Blood SMALL Urine Nitrite NEG Urine Bilirubin NEG Urine Urobilinogen 2.0 Urine Leukocyte Esterase NEG Urine WBC LESS THAN 1 Urine Squamous Epithelial Cells <1 Microscopic Urinalysis Comment CULT NOT INDICATED Blood Urea Nitrogen 26 21 Creatinine 1.23 0.90 Random Glucose 249 128 Total Protein 7.7 6.6 Albumin 2.1 1.9 Calcium Level 8.3 7.9 Alkaline Phosphatase 88 76 Aspartate Amino Transf (AST/SGOT) 83 96 Alanine Aminotransferase (ALT/SGPT) 39 43 Total Bilirubin 1.4 1.1 Sodium Level 120 127 130 Potassium Level 4.2 3.1 Chloride Level 81 89 Carbon Dioxide Level 27.9 30.4 Anion Gap 11 11 Estimat Glomerular Filtration Rate 62 89 Digoxin Level 0.8 Ethyl Alcohol Level LESS THAN 3 Prothrombin Time 15.4 15.1 Prothromb Time International Ratio 1.5 1.5 Activated Partial Thromboplast Time 34.8 Test 01/04/18 10:01 Blood Urea Nitrogen 17 Creatinine 0.96 Random Glucose 145 Calcium Level 8.5 Sodium Level 130 Potassium Level 3.4 Chloride Level 90 Carbon Dioxide Level 33.9 Anion Gap 6 Estimat Glomerular Filtration Rate 82 Date/Time Source Procedure Growth Status 01/03/18 22:00 Blood Peripheral Aerobic Blood Culture - Preliminary Gram Positive Cocci Resulted 01/03/18 22:00 Anaerobic Blood Culture - Preliminary Gram Positive Cocci Resulted 01/03/18 20:15 Nasal Washing Influenza Types A,B Antigen (CHELSI) - Final NEGATIVE FOR FLU A AND B ANTIGEN.... Complete Result Diagram: 01/04/18 0329 01/04/18 1001 Imaging Last Impressions Lumbar Spine CT 01/03/18 0000 Signed Impressions: Service Date/Time: Wednesday, January 03, 2018 22:13 - CONCLUSION: 1. Multiple disc bulges in the lower lumbar spine with mild encroachment on the lateral recesses and neural foramina. No acute fracture. Mild scoliosis. Mild degenerative disc disease. Mani Robison MD Chest X-Ray 01/03/18 0000 Signed Impressions: Service Date/Time: Wednesday, January 03, 2018 20:06 - CONCLUSION: 1. Cardiomegaly. No acute findings. Mani Robison MD Abdomen/Pelvis CT 01/03/18 0000 Signed Impressions: Service Date/Time: Wednesday, January 03, 2018 22:13 - CONCLUSION: 1. Probable left hip joint effusion with some inflammatory or edematous changes in the musculature around the anterior left hip. Would be better evaluated with MRI. 2. No acute findings within the abdomen and pelvis. Multiple calcified gallstones. Small hiatal hernia. MD Trina Boswell VTE Risk Assessment Caprini VTE Risk Assessment: Mod/High Risk (score >= 2) Caprini Risk Assessment Model Point Value = 1 Point Value = 2 Point Value = 3 Point Value = 5 Age 41-60 Minor surgery BMI > 25 kg/m2 Swollen legs Varicose veins or History of unexplained or recurrent spontaneous Oral contraceptives or hormone replacement Sepsis (< 1 month) Serious lung disease, including pneumonia (< 1 month) Abnormal pulmonary function Acute myocardial infarction Congestive heart failure (< 1 month) History of inflammatory bowel disease Medical patient at bed rest Age 61-74 Arthroscopic surgery Major open surgery (> 45 min) Laparoscopic surgery (> 45 min) Malignancy Confined to bed (> 72 hours) Immobilizing plaster cast Central venous access Age >= 75 History of VTE Family history of VTE Factor V Leiden Prothrombin 45019H Lupus anticoagulant Anticardiolipin antibodies Elevated serum homocysteine Heparin-induced thrombocytopenia Other congenital or acquired thrombophilia Stroke (< 1 month) Elective arthroplasty Hip, pelvis, or leg fracture Acute spinal cord injury (< 1 month) Prophylaxis Regimen Total Risk Factor Score Risk Level Prophylaxis Regimen 0-1 Low Early ambulation 2 Moderate Order ONE of the following: *Sequential Compression Device (SCD) *Heparin 5000 units SQ BID 3-4 Higher Order ONE of the following medications: *Heparin 5000 units SQ TID *Enoxaparin/Lovenox 40 mg SQ daily (WT < 150 kg, CrCl > 30 mL/min) *Enoxaparin/Lovenox 30 mg SQ daily (WT < 150 kg, CrCl > 10-29 mL/min) *Enoxaparin/Lovenox 30 mg SQ BID (WT < 150 kg, CrCl > 30 mL/min) AND/OR *Sequential Compression Device (SCD) 5 or more Highest Order ONE of the following medications: *Heparin 5000 units SQ TID (Preferred with Epidurals) *Enoxaparin/Lovenox 40 mg SQ daily (WT < 150 kg, CrCl > 30 mL/min) *Enoxaparin/Lovenox 30 mg SQ daily (WT < 150 kg, CrCl > 10-29 mL/min) *Enoxaparin/Lovenox 30 mg SQ BID (WT < 150 kg, CrCl > 30 mL/min) AND *Sequential Compression Device (SCD) Assessment and Plan Problem List: (1) Sepsis ICD Codes: A41.9 - Sepsis, unspecified organism Status: Acute Plan: Patient with history of tetralogy of flow as a child now with positive blood cultures going Gram positive cocci Echocardiogram requested WINSOME discussed with reading video recorder mechanic ID consulted Continue Vancomycin (pharmacy to dose) and Cefepime CT abdomen pelvis: CONCLUSION: 1. Probable left hip joint effusion with some inflammatory or edematous changes in the musculature around the anterior left hip. Would be better evaluated with MRI. 2. No acute findings within the abdomen and pelvis. Multiple calcified gallstones. Small hiatal hernia. MRI left hip requested UA no culture indicated CXR Cardiomegaly. No acute findings (2) Alcohol withdrawal ICD Codes: F10.239 - Alcohol dependence with withdrawal, unspecified Status: Acute Plan: Scheduled Librium 25 mg PO TID CIWA protocol (3) Hyponatremia ICD Codes: E87.1 - Hypo-osmolality and hyponatremia Status: Acute Plan: Patient does have ETOH abuse Na on admission 120 -> (01/04) 0319 130 -> (01/04) 1000 130 change NS to 1/2 NS at 50 ml/H recheck BMP in AM (4) DM (diabetes mellitus) ICD Codes: E11.9 - Type 2 diabetes mellitus without complications Status: Chronic Plan: Diabetic diet Accu checks ACHS with SSI coverage (5) Pulmonary embolism ICD Codes: I26.99 - Other pulmonary embolism without acute cor pulmonale Plan: prosthetic cardiac valves with post op PE Initial INR 1.5, do not believe that patient has been taking Coumadin as prescribed continue Coumadin recheck INR in AM Assessment and Plan Patient examined. Assessment and plan formulated with Carmen Sanchez PA-C. I agree with the above. Pt's [facility] were reviewed. Pt has h/o TOF with repair. Pt had 1V CABG. Pt had porcine valve replacement x 2. Had long d/w pt/mother at bedside. Pt has not been doing well for last two weeks. Pt saw his PCP for left hip pain. Pt was diagnosed with sciatica and received IM steroid injection into left gluteal region. Mother reports that pt had increasing confusion over the last 2 weeks, but particularly last few days. Pt had fever and poor PO intake. Blood cultures positive. Case d/w Dr. Carrillo, Infectious Disease, (01/04). She will consult. Will obtain transthoracic echocardiogram. Pt will likely need LEÓN to r/o Endocarditis. Case d/w Dr. Nj, Cardiology, (01/04). She will consults. Physician Certification 2 Midnight Certification Type: Admission for Inpatient Services Order for Inpatient Services The services are ordered in accordance with Medicare regulations or non- Medicare payer requirements, as applicable. In the case of services not specified as inpatient-only, they are appropriately provided as inpatient services in accordance with the 2-midnight benchmark. Estimated LOS (days): 3 3 days is the estimated time the patient will need to remain in the hospital, assuming treatment plan goals are met and no additional complications. Post-Hospital Plan: Not yet determined Problem Qualifiers (1) Sepsis: Qualified Codes: A41.9 - Sepsis, unspecified organism (2) Alcohol withdrawal: Qualified Codes: F10.230 - Alcohol dependence with withdrawal, uncomplicated (3) DM (diabetes mellitus): Qualified Codes: E11.8 - Type 2 diabetes mellitus with unspecified complications; Z79.4 - senior living (current) use of insulin Carmen Sanchez Jan 04, 2018 12:07 Peter Maddox DO Jan 05, 2018 11:14
[2018-01-04] MEDS ORDERED: DEXTROSE 50% IN WATER 50 ML VIAL(D50) IV PUSH PRN (13:30)
[2018-01-04] MEDS ORDERED: GLUCAGON 1 MG/ML VIAL OTHER PRN (13:30)
[2018-01-04] MEDS ORDERED: VANCOMYCIN 1,500 MG/NS 500 ML IV SCH ×2 (14:00)
[2018-01-04] MEDS: chlordiazePOXIDE 25 MG CAP PO SCH ×2 (15:53→17:34)
--- NOTE | 2018-01-04 16:32 | ECHRPT ---
Indication: R/O ENDOCARDITIS, SEPSIS CONCLUSIONS Normal left ventricular size. Mild concentric left ventricular hypertrophy. The left ventricular systolic function is hyperdynamic with an estimated ejection fraction in the ra nge of 65- 70%. The left ventricular systolic function is hyperdynamic with an estimated ejection fraction in the ra nge of 65- 70%. The right atrial size is [id number] dilated. The interatrial septum not well visualized. The aortic root and proximal ascending aorta are not well visualized. No mitral valve stenosis. Trace mitral valve regurgitation. Aortic valve sclerosis is present. There is mild stenosis of the tricuspid valve prosthesis, mean gradient 8 mmHg. Normally functioning pulmonary valve prosthesis. No overt signs of endocarditis inthis difficult study. Consider LEÓN if felt clinically indicated. BP: 135 / 84 HR: 95 Rhythm: Atrial fibrillation, Atrial flut ter MEASUREMENTS (Male / Female) Normal Values Technical Quality:Fair 2D ECHO LV Diastolic Diameter PLAX 4.9 cm 4.2 - 5.9 / 3.9 - 5.3 cm LV Systolic Diameter PLAX 3.4 cm IVS Diastolic Thickness 0.9 cm 0.6 - 1.0 / 0.6 - 0.9 cm LVPW Diastolic Thickness 1.2 cm 0.6 - 1.0 / 0.6 - 0.9 cm LV Relative Wall Thickness 0.4 RV Internal Dim ED PLAX 3.6 cm LVOT Diameter 2.6 cm Aortic Root Diameter 4.1 cm LA Systolic Diameter LX 5.0 cm 3.0 - 4.0 / 2.7 - 3.8 cm M-MODE AV Cusp Separation MM 2.1 cm DOPPLER LVOT Peak Velocity 64.3 cm/s LVOT Peak Gradient 1.7 mmHg LVOT Velocity Time Integral 10.6 cm Mitral E Point Velocity 66.9 cm/s Mitral A Point Velocity 52.1 cm/s Mitral E to A Ratio 1.3 LV E' Lateral Velocity 18.3 cm/s Mitral E to LV E' Lateral Ratio 3.7 LV E' Septal Velocity 7.8 cm/s Mitral E to LV E' Septal Ratio 8.5 TV Peak Velocity 194.0 cm/s PV Peak Velocity 169.0 cm/s PV Peak Gradient 11.4 mmHg RVOT Peak Velocity 117.0 cm/s PV Area Cont Eq vti 4.6 cm PV Area Cont Eq pk 4.6 cm QpQs Shunt Ratio 2.4 FINDINGS LEFT VENTRICLE Normal left ventricular size. Mild concentric left ventricular hypertrophy. The left ventricular systolic function is hyperdynamic with an estimated ejection fraction in the ra nge of 65- 70%. RIGHT VENTRICLE Normal right ventricular size and systolic function. LEFT ATRIUM The left atrial size is normal. RIGHT ATRIUM The right atrial size is [id number] dilated. ATRIAL SEPTUM The interatrial septum not well visualized. AORTA The aortic root and proximal ascending aorta are not well visualized. MITRAL VALVE Structurally normal mitral valve. No mitral valve stenosis. Trace mitral valve regurgitation. AORTIC VALVE Aortic valve sclerosis is present. TRICUSPID VALVE There is mild stenosis of the tricuspid valve prosthesis, mean gradient 8 mmHg. PULMONARY VALVE Normally functioning pulmonary valve prosthesis. VESSELS The inferior vena cava is normal in size. PERICARDIUM No pericardial effusion. Rimma Teixeira MD, FACC (Electronically Signed) Final Date:04 January 2018 16:31
--- NOTE | 2018-01-04 16:48 | PD.CONS ---
HPI Service Cardiology for CP Consult Requested By Dr. Maddox. Peter Reason for Consult LEÓN for Possible endocarditis, hx of PV and TV replacement. Primary Care Physician Unknown History of Present Illness This is a 52-year-old man, admitted for left hip pain, found to have MSSA bacteremia. 2 weeks ago, he had a steroid injection at his PCP office. He states this pain has not improved since his injection.. Patient denies SOB, chest pain N/V/D/C. Initial vital signs show heart rate 99, blood pressure 150/67, pulse ox 97% on room air, oral temp of 101.2F. He has extensive hx of congenital heart disease TOF Tetralogy of Fallot, underwent multiple cardiac surgery (17 month old, 7 and 9 yo, and last one in 2015), s/p TVR and PVR with bioprosthetic valves, continues to follow with [facility], post op PE, atrial fibrillation on Coumadin, CAD s/p cardiac stent and CABG, hypertension, DM, Hepatitis C, hyperlipidemia, ETOH abuse last alcoholic drink was 2 days ago. also been falling and off balance. Review of Systems Consitutional: COMPLAINS OF: Fatigue Respiratory: COMPLAINS OF: See HPI Cardiovascular: COMPLAINS OF: See HPI Gastrointestinal: COMPLAINS OF: Nausea, Vomiting Musculoskeletal: COMPLAINS OF: Joint pain, Muscle pain Psychiatric: COMPLAINS OF: Anxiety Hematologic: COMPLAINS OF: Bruising tendencies Past Family Social History Allergies: Coded Allergies: penicillin G (Unverified Allergy, Mild, 01/03/18) Past Medical History Tetralogy of Fallot repaired as a he continues to follow with [facility] , prosthetic pulmonary and Tricuspid valve replacement, Post op PE, atrial fibrillation on Coumadin, CAD s/p cardiac stent and CABG, Hypertension, DM, Hepatitis C, hyperlipidemia, ETOH abuse Past Surgical History Repair of tetralogy of Fallot as an prostatic heart valve in pulmonary and Tricuspid valve Cardiac stent placement CABG Reported Medications Reported Meds & Active Scripts Active Reported Victoza Inj (Liraglutide Inj) 18 Mg/3 Ml Pen 0.6 Mg SQ DAILY Aspir-81 (Aspirin) 81 Mg Tabdr 1 Tab PO DAILY Digoxin 0.25 Mg Tab 0.25 Mg PO DAILY Fluoxetine (Fluoxetine HCl) 60 Mg Tab 60 Mg PO DAILY Furosemide 80 Mg Tab 40 Mg PO BID Tresiba Flextouch Pen Inj (Insulin Degludec Inj) 300 unit/3 ML Pen 42 Units SQ HS Losartan (Losartan Potassium) 50 Mg Tab 100 Mg PO DAILY Simvastatin 20 Mg Tab 20 Mg PO DAILY Temazepam 15 Mg Cap 15 Mg PO HS PRN Warfarin 5 Mg Tab 5 Mg PO DAILY Active Ordered Medications Current Medications Medications (Trade) Dose Ordered Sig/Shantal Route Start Time Stop Time Status Last Admin (Romazicon Inj) 0.2 mg Q1M PRN IV PUSH 01/03/18 23:15 (Ativan) 1 mg Q4H PRN PO 01/03/18 23:15 (Ativan Inj) 1 mg Q4H PRN IV PUSH 01/03/18 23:15 (Ativan) 2 mg Q2H PRN PO 01/03/18 23:15 01/03/18 23:50 (Ativan Inj) 2 mg Q2H PRN IV PUSH 01/03/18 23:15 (Ativan Inj) 2 mg Q1H PRN IV PUSH 01/03/18 23:15 (Ativan Inj) 2 mg Q15M PRN IV PUSH 01/03/18 23:15 Pharmacy Profile Note 0 ml @ 0 mls/hr UNSCH OTHER 01/03/18 23:15 Cefepime HCl 2000 mg/Sodium Chloride 100 ml @ 200 mls/hr Q12H IV 01/04/18 11:00 01/04/18 11:34 (Zofran Inj) 4 mg Q6HR PRN IV PUSH 01/03/18 23:15 (Tylenol) 500 mg Q6H PRN PO 01/03/18 23:30 01/04/18 02:18 (Morphine Inj) 2 mg Q4H PRN IV PUSH 01/03/18 23:30 Potassium Chloride/Sodium Chloride 1,000 ml @ 50 mls/hr Q20H IV 01/04/18 09:30 01/04/18 10:07 Vancomycin HCl 1500 mg/Sodium Chloride 515 ml @ 257.5 mls/ hr Q12H IV 01/04/18 14:00 01/04/18 15:54 Miscellaneous Information SPECIFIC LAB TO BE DRAWN:VA... ONCE ONCE .XX 01/06/18 01:45 01/06/18 01:46 (Ecotrin Ec) 81 mg DAILY PO 01/05/18 09:00 (Lanoxin) 0.25 mg DAILY PO 01/05/18 09:00 (PROzac) 60 mg DAILY PO 01/05/18 09:00 (Cozaar) 100 mg DAILY PO 01/05/18 09:00 (Coumadin) 5 mg DAILY@1600 PO 01/05/18 16:00 (Pravachol) 40 mg DAILY PO 01/05/18 09:00 (D50w (Vial) Inj) 50 ml UNSCH PRN IV PUSH 01/04/18 13:30 (Glucagon Inj) 1 mg UNSCH PRN OTHER 01/04/18 13:30 (NovoLOG SUPPLEMENTAL SCALE) 1 ACHS SLIDING SCALE SQ 01/04/18 17:00 (Librium) 25 mg TID PO 01/04/18 14:15 01/04/18 15:53 Family History y Noncontributory Social History Daily EtOH use patient reports 2-4 beers per day. Uses chewing tobacco daily Denies illicit drug use Physical Exam Vital Signs Vital Signs Date Time Temp Pulse Resp B/P (MAP) Pulse Ox O2 Delivery O2 Flow Rate FiO2 01/04/18 16:10 99.3 106 20 170/94 (119) 94 01/04/18 13:00 95 01/04/18 12:47 99.3 98 20 134/84 (101) 97 01/04/18 08:44 99.4 89 20 127/60 (82) 97 01/04/18 08:05 99 01/04/18 04:00 100.3 94 22 150/70 (96) 98 01/04/18 00:00 101.2 106 19 156/79 (104) 98 01/03/18 23:10 107 16 143/72 (95) 98 Nasal Cannula 2.00 01/03/18 19:36 99.7 Physical Exam CONSTITUTIONAL/GENERAL: This is an adequately nourished patient, in no apparent distress. SKIN: No jaundice, rashes, or lesions. Skin temperature appropriate. Not diaphoretic. HEAD: Atraumatic. Normocephalic. EYES: Pupils equal and round and reactive. Extraocular motions intact. No scleral icterus. No injection or drainage. Fundi not examined. ENT: Hearing grossly normal. Nose without bleeding or purulent drainage. Throat without visible erythema, exudates, masses, or lesions. NECK: Trachea midline. Supple, nontender. No palpable thyroid enlargement or nodularity. CARDIOVASCULAR: Regular rate and rhythm, Holosystolic murmur 2 /6 RUSB. normal S1 and S2. No edema. RESPIRATORY/CHEST: Symmetric, unlabored respirations. Clear to auscultation. Breath sounds equal bilaterally. No wheezes, rales, or rhonchi. GASTROINTESTINAL: Abdomen soft, non-tender, nondistended. No hepato-splenomegaly , or palpable masses. No guarding. Bowel sounds present. GENITOURINARY: Without palpable bladder distension . MUSCULOSKELETAL: Extremities without clubbing, cyanosis, or edema. No joint tenderness or effusion noted. No calf tenderness. No mottling or clubbing. L hip palpation reveals some tenderness, no swelling minimal pain with PROM, some pain with AROM NEUROLOGICAL: Awake and alert. Motor and sensory grossly within normal limits. Follows commands. Cognitively sharp. Moves all extremities. PSYCHIATRIC: No obvious anxiety/depression. no apparent hallucinations or other psychotic thought process. Laboratory Laboratory Tests Test 01/03/18 20:15 01/03/18 22:08 01/03/18 23:59 01/04/18 03:29 White Blood Count 14.0 15.6 Red Blood Count 3.94 3.85 Hemoglobin 12.3 12.0 Hematocrit 36.2 35.0 Mean Corpuscular Volume 91.9 90.9 Mean Corpuscular Hemoglobin 31.1 31.2 Mean Corpuscular Hemoglobin Concent 33.9 34.3 Red Cell Distribution Width 13.2 13.2 Platelet Count 355 322 Mean Platelet Volume 9.6 8.6 Neutrophils (%) (Auto) 85.2 89.7 Lymphocytes (%) (Auto) 4.6 3.4 Monocytes (%) (Auto) 9.8 6.6 Eosinophils (%) (Auto) 0.0 0.0 Basophils (%) (Auto) 0.4 0.3 Neutrophils # (Auto) 11.9 14.0 Lymphocytes # (Auto) 0.6 0.5 Monocytes # (Auto) 1.4 1.0 Eosinophils # (Auto) 0.0 0.0 Basophils # (Auto) 0.1 0.1 CBC Comment DIFF FINAL DIFF FINAL Differential Comment Urine Color YELLOW Urine Turbidity CLEAR Urine pH 6.0 Urine Specific [place] 1.010 Urine Protein 30 Urine Glucose (UA) 1000 Urine Ketones 10 Urine Occult Blood SMALL Urine Nitrite NEG Urine Bilirubin NEG Urine Urobilinogen 2.0 Urine Leukocyte Esterase NEG Urine WBC LESS THAN 1 Urine Squamous Epithelial Cells <1 Microscopic Urinalysis Comment CULT NOT INDICATED Blood Urea Nitrogen 26 21 Creatinine 1.23 0.90 Random Glucose 249 128 Total Protein 7.7 6.6 Albumin 2.1 1.9 Calcium Level 8.3 7.9 Alkaline Phosphatase 88 76 Aspartate Amino Transf (AST/SGOT) 83 96 Alanine Aminotransferase (ALT/SGPT) 39 43 Total Bilirubin 1.4 1.1 Sodium Level 120 127 130 Potassium Level 4.2 3.1 Chloride Level 81 89 Carbon Dioxide Level 27.9 30.4 Anion Gap 11 11 Estimat Glomerular Filtration Rate 62 89 Digoxin Level 0.8 Ethyl Alcohol Level LESS THAN 3 Prothrombin Time 15.4 15.1 Prothromb Time International Ratio 1.5 1.5 Activated Partial Thromboplast Time 34.8 Test 01/04/18 10:01 Blood Urea Nitrogen 17 Creatinine 0.96 Random Glucose 145 Calcium Level 8.5 Sodium Level 130 Potassium Level 3.4 Chloride Level 90 Carbon Dioxide Level 33.9 Anion Gap 6 Estimat Glomerular Filtration Rate 82 Date/Time Source Procedure Growth Status 01/03/18 22:00 Blood Peripheral Aerobic Blood Culture - Preliminary Gram Positive Cocci Resulted 01/03/18 22:00 Anaerobic Blood Culture - Preliminary Gram Positive Cocci Resulted 01/03/18 20:15 Nasal Washing Influenza Types A,B Antigen (CHELSI) - Final NEGATIVE FOR FLU A AND B ANTIGEN.... Complete Result Diagram: 01/04/18 0329 01/04/18 1001 Assessment and Plan Problem List: (1) ToF-PA (tetralogy of Fallot, pulmonary atresia, and VSD) ICD Codes: Q21.3 - Tetralogy of Fallot (2) S/P TOF (tetralogy of Fallot) repair ICD Codes: Z98.890 - Other specified postprocedural states; Z87.74 - Personal history of (corrected) congenital malformations of heart and circulatory system (3) Sepsis ICD Codes: A41.9 - Sepsis, unspecified organism Status: Acute (4) CAD (coronary artery disease) ICD Codes: I25.10 - Atherosclerotic heart disease of [place] coronary artery without angina pectoris Status: Chronic (5) HTN (hypertension) ICD Codes: I10 - Essential (primary) hypertension Status: Chronic (6) Pulmonary embolism ICD Codes: I26.99 - Other pulmonary embolism without acute cor pulmonale (7) Hepatitis C ICD Codes: B19.20 - Unspecified viral hepatitis C without hepatic coma Status: Chronic Assessment and Plan 1. Sepsis, 12/25 positive Bcx Gram positive cocci, source to be determined Left hip effusion, pending MRI hip, Echocardiogram 01/03/14 showed no obvious vegetation, but LEÓN recommended if necessary. ID consulted Continue Vancomycin (pharmacy to dose) and Cefepine will arrange LEÓN on Saturday. Because of hx of alcohol abuse, will need GI consult possible EGD to rule out esophageal pathology prior to LEÓN. 2. Alcohol dependence with withdrawal, unspecified Scheduled Librium 25 mg PO TID CIWA protocol 3. hx of Congenital heart disease, s/p TOF repair, including possible VSD repair , TVR, PVR, and single V CABG. Echo 01/04/18 showed normal LVEF, no residual VSD. normal TV prosthesis function. 4. hx of pulmonary embolism without acute cor pulmonale Initial INR 1.5, continue Coumadin, goal INR 2-3 Problem Qualifiers (1) Sepsis: Qualified Codes: A41.9 - Sepsis, unspecified organism Wing Martha Nj MD Jan 04, 2018 16:48
[2018-01-04] MEDS ORDERED: chlordiazePOXIDE 25 MG CAP PO SCH (18:00)
--- NOTE | 2018-01-04 19:55 | PD.ID.CON ---
History of Present Illness Service ID Consult Requested By Dr Maddox Reason for Consult sepsis Primary Care Physician Unknown Diagnoses: History of Present Illness 52 yo male with tetralogy of Fallot sp 4 cariac procedures (3 inchildhood, last in 2016 - tricuspid and pulmonary valves replacement) dvelopped fdew weeks of L hip pain apparently nhe got a sterrioi d ingection for that problem which made his pain worse He presented with inability to work due to pain as well as worsening maliase On presentation fever of 101.2 and leukocytosis of 14 K Blood clx are positivie for GPC in pairs, clusters, / bottles @ 24 hrs 2 D echo was ordered and human resources technician was consulted for LEÓN CT showed fluid collection in L hip joint started on cefepime, vancomycin Review of Systems Except as stated in HPI: all other systems reviewed are Neg Past Family Social History Allergies: Coded Allergies: penicillin G (Unverified Allergy, Mild, 01/03/18) Past Medical History Chronic low back pain with radiculopathy, alcoholism, tetralogy of Fallot status post repair, hepatitis C, hypertension, diabetes Past Surgical History Multiple cardiac procedures imcluding pulmonary/ tricuspid valve replacements in 2016 Active Ordered Medications Medications where reviewed in EMR Antibiotics Include: cefepime vancomycin Family History non contributing to curretn t ID [place] Social History No tobacco no IVDU + daily ETOH Physical Exam Vital Signs Vital Signs Date Time Temp Pulse Resp B/P (MAP) Pulse Ox O2 Delivery O2 Flow Rate FiO2 01/04/18 16:10 99.3 106 20 170/94 (119) 94 01/04/18 15:59 117 01/04/18 13:00 95 01/04/18 12:47 99.3 98 20 134/84 (101) 97 01/04/18 08:44 99.4 89 20 127/60 (82) 97 01/04/18 08:05 99 01/04/18 04:00 100.3 94 22 150/70 (96) 98 01/04/18 00:00 101.2 106 19 156/79 (104) 98 01/03/18 23:10 107 16 143/72 (95) 98 Nasal Cannula 2.00 Physical Exam CONSTITUTIONAL/GENERAL: This is an adequately nourished patient, in no apparent distress. TUBES/LINES/DRAINS: SKIN: No jaundice, rashes, or lesions. Skin temperature appropriate. Not diaphoretic. HEAD: Atraumatic. Normocephalic. EYES: Pupils equal and round and reactive. Extraocular motions intact. No scleral icterus. No injection or drainage. Fundi not examined. ENT: Hearing grossly normal. Nose without bleeding or purulent drainage. Throat without visible erythema, exudates, masses, or lesions. NECK: Trachea midline. Supple, nontender. No palpable thyroid enlargement or nodularity. CARDIOVASCULAR: Regular rate and rhythm Holosystolic murmur 2-3 /6 peak at R upper sternal border ? S3 gallop, no rubs. No JVD. Peripheral pulses symmetric. Well healed median sternotomy scar RESPIRATORY/CHEST: Symmetric, unlabored respirations. Clear to auscultation. Breath sounds equal bilaterally. No wheezes, rales, or rhonchi. GASTROINTESTINAL: Abdomen soft, non-tender, nondistended. No hepato-splenomegaly , or palpable masses. No guarding. Bowel sounds present. GENITOURINARY: Without palpable bladder distension . MUSCULOSKELETAL: Extremities without clubbing, cyanosis, or edema. No joint tenderness or effusion noted. No calf tenderness. No mottling or clubbing. L hip palpation reveals some tenderness, no swelling minimal pain with PROM, some pain with AROM LYMPHATICS: No palpable cervical or supraclavicular adenopathy. NEUROLOGICAL: Awake and alert. Motor and sensory grossly within normal limits. Follows commands. Cognitively sharp. Moves all extremities. PSYCHIATRIC: No obvious anxiety/depression. no apparent hallucinations or other psychotic thought process. Laboratory Laboratory Tests Test 01/03/18 20:15 01/03/18 22:08 01/03/18 23:59 01/04/18 03:29 White Blood Count 14.0 15.6 Red Blood Count 3.94 3.85 Hemoglobin 12.3 12.0 Hematocrit 36.2 35.0 Mean Corpuscular Volume 91.9 90.9 Mean Corpuscular Hemoglobin 31.1 31.2 Mean Corpuscular Hemoglobin Concent 33.9 34.3 Red Cell Distribution Width 13.2 13.2 Platelet Count 355 322 Mean Platelet Volume 9.6 8.6 Neutrophils (%) (Auto) 85.2 89.7 Lymphocytes (%) (Auto) 4.6 3.4 Monocytes (%) (Auto) 9.8 6.6 Eosinophils (%) (Auto) 0.0 0.0 Basophils (%) (Auto) 0.4 0.3 Neutrophils # (Auto) 11.9 14.0 Lymphocytes # (Auto) 0.6 0.5 Monocytes # (Auto) 1.4 1.0 Eosinophils # (Auto) 0.0 0.0 Basophils # (Auto) 0.1 0.1 CBC Comment DIFF FINAL DIFF FINAL Differential Comment Urine Color YELLOW Urine Turbidity CLEAR Urine pH 6.0 Urine Specific [place] 1.010 Urine Protein 30 Urine Glucose (UA) 1000 Urine Ketones 10 Urine Occult Blood SMALL Urine Nitrite NEG Urine Bilirubin NEG Urine Urobilinogen 2.0 Urine Leukocyte Esterase NEG Urine WBC LESS THAN 1 Urine Squamous Epithelial Cells <1 Microscopic Urinalysis Comment CULT NOT INDICATED Blood Urea Nitrogen 26 21 Creatinine 1.23 0.90 Random Glucose 249 128 Total Protein 7.7 6.6 Albumin 2.1 1.9 Calcium Level 8.3 7.9 Alkaline Phosphatase 88 76 Aspartate Amino Transf (AST/SGOT) 83 96 Alanine Aminotransferase (ALT/SGPT) 39 43 Total Bilirubin 1.4 1.1 Sodium Level 120 127 130 Potassium Level 4.2 3.1 Chloride Level 81 89 Carbon Dioxide Level 27.9 30.4 Anion Gap 11 11 Estimat Glomerular Filtration Rate 62 89 Digoxin Level 0.8 Ethyl Alcohol Level LESS THAN 3 Prothrombin Time 15.4 15.1 Prothromb Time International Ratio 1.5 1.5 Activated Partial Thromboplast Time 34.8 Test 01/04/18 10:01 01/04/18 18:00 Blood Urea Nitrogen 17 Creatinine 0.96 Random Glucose 145 Calcium Level 8.5 Sodium Level 130 Potassium Level 3.4 Chloride Level 90 Carbon Dioxide Level 33.9 Anion Gap 6 Estimat Glomerular Filtration Rate 82 Urine Opiates Screen NEG Urine Barbiturates Screen NEG Urine Amphetamines Screen NEG Urine Benzodiazepines Screen NEG Urine Cocaine Screen NEG Urine Cannabinoids Screen NEG Date/Time Source Procedure Growth Status 01/03/18 22:00 Blood Peripheral Aerobic Blood Culture - Preliminary Gram Positive Cocci Resulted 01/03/18 22:00 Anaerobic Blood Culture - Preliminary Gram Positive Cocci Resulted 01/03/18 20:15 Nasal Washing Influenza Types A,B Antigen (CHELSI) - Final NEGATIVE FOR FLU A AND B ANTIGEN.... Complete Result Diagram: 01/04/18 0329 01/04/18 1001 Imaging Last Impressions Lumbar Spine CT 01/03/18 0000 Signed Impressions: Service Date/Time: Wednesday, January 03, 2018 22:13 - CONCLUSION: 1. Multiple disc bulges in the lower lumbar spine with mild encroachment on the lateral recesses and neural foramina. No acute fracture. Mild scoliosis. Mild degenerative disc disease. Mani Robison MD Chest X-Ray 01/03/18 0000 Signed Impressions: Service Date/Time: Wednesday, January 03, 2018 20:06 - CONCLUSION: 1. Cardiomegaly. No acute findings. Mani Robison MD Abdomen/Pelvis CT 01/03/18 0000 Signed Impressions: Service Date/Time: Wednesday, January 03, 2018 22:13 - CONCLUSION: 1. Probable left hip joint effusion with some inflammatory or edematous changes in the musculature around the anterior left hip. Would be better evaluated with MRI. 2. No acute findings within the abdomen and pelvis. Multiple calcified gallstones. Small hiatal hernia. Mani Robison MD Assessment and Plan Assessment and Plan HIgh grade presumably staph bactermeia in a pt with prosthetic valve - source PVE (prosthetic valve endocarditis) vs secondary bactremia 2/2 septic L hip cont vanco dc cefepime f/u ID/S of the GPC isolate LEÓN - final abx rec's per LEÓN findings and final ID/S of the blood clx MRI of L hip Addendum: MSSA cont vancomycin for now will switch to cefazolin - per mom, low grade rash, not hives and tolerated cefepime uneventfully gent/rifampin addition if confirmed PVE and S to those agents Discussed Condition With Roula Srivastava MD Jan 04, 2018 19:55
[2018-01-04] MEDS: ceFAZolin 2 GM PREMIX 50 ML IV SCH (22:19)
[2018-01-04] MEDS ORDERED: TEMAZEPAM 15 MG CAP PO PRN (23:45)
[2018-01-05] VITALS (10 sets, daily range): BP systolic 132–175; BP diastolic 77–88; PULSE 76–114; RESP 18–20; TEMP 97.3–99.4; O2SAT 94–99
[2018-01-05] MEDS: ceFAZolin 2 GM PREMIX 50 ML IV SCH ×3 (05:15→23:12)
[2018-01-05] MEDS: 1/2 NS + KCL 20 MEQ INJ 1,000 ML IV SCH (05:30)
[2018-01-05] MEDS: INSULIN ASPART SUPPLEMENTAL SCALE SQ SCH ×4 (07:54→23:14)
[2018-01-05] MEDS: chlordiazePOXIDE 25 MG CAP PO SCH ×3 (08:04→17:17)
[2018-01-05] MEDS: PRAVASTATIN SOD 40 MG TAB PO SCH (08:04)
[2018-01-05] MEDS: DIGOXIN 0.25 MG TAB PO SCH (08:04)
[2018-01-05] MEDS: FLUoxetine HCL 20 MG CAP PO SCH (08:05)
[2018-01-05] MEDS: ASPIRIN EC 81 MG TABEC PO SCH (08:05)
[2018-01-05] MEDS: LOSARTAN 50 MG TAB PO SCH (08:05)
[2018-01-05 08:06] LABS: AUTOMATED NEUTROPHIL # 9.4 TH/MM3 (1.8-7.7); BASOPHIL % 0.2 % (0.0-2.0); EOSINOPHIL # 0.1 TH/MM3 (0-0.4); EOSINOPHIL % 0.5 % (0.0-4.0); HEMOGLOBIN 12.2 GM/DL (13.0-17.0); LYMPH % 6.2 % (9.0-44.0); LYMPHOCYTE # 0.7 TH/MM3 (1.0-4.8); MEAN CELL VOLUME 92.3 FL (80.0-100.0); MEAN CORPUSCULAR HEMOGLOBIN 32.2 PG (27.0-34.0); MEAN CORPUSCULAR HGB CONC 34.9 % (32.0-36.0); MEAN PLATELET VOLUME 9.2 FL (7.0-11.0); MONO % 12.3 % (0.0-8.0); MONOCYTE # 1.4 TH/MM3 (0-0.9); NEUT % 80.8 % (16.0-70.0); PLATELET COUNT 273 TH/MM3 (150-450); RED CELL DISTRIBUTION WIDTH 13.3 % (11.6-17.2); WHITE BLOOD COUNT 11.6 TH/MM3 (4.0-11.0)
[2018-01-05 08:22] LABS: INTERNATIONAL NORMALIZED RATIO 1.3 RATIO; PROTHROMBIN TIME - PATIENT 13.1 SEC (9.8-11.6)
[2018-01-05 08:26] LABS: BICARBONATE 29.9 MEQ/L (21.0-32.0); CALCIUM 8.4 MG/DL (8.5-10.1); CREATININE 0.63 MG/DL (0.60-1.30)
--- NOTE | 2018-01-05 08:42 | PD.ORT.PN ---
Subjective Subjective Remarks Patient resting comfortably. Patient is currently laying on his left hip. He states he feels more comfortable laying in this position and on his back. Objective Vitals Vital Signs Date Time Temp Pulse Resp B/P (MAP) Pulse Ox O2 Delivery O2 Flow Rate FiO2 01/05/18 07:53 99.4 76 20 175/81 (112) 94 01/05/18 05:13 98.8 101 18 140/77 (98) 99 01/05/18 01:04 98.4 107 18 132/88 (103) 96 01/05/18 00:30 114 01/04/18 21:08 100.1 100 18 154/78 (103) 97 01/04/18 20:30 98 01/04/18 16:10 99.3 106 20 170/94 (119) 94 01/04/18 15:59 117 01/04/18 13:00 95 01/04/18 12:47 99.3 98 20 134/84 (101) 97 01/04/18 08:44 99.4 89 20 127/60 (82) 97 I/O 01/04/18 01/04/18 01/04/18 01/05/18 01/05/18 01/05/18 07:00 15:00 23:00 07:00 15:00 23:00 Intake Total 100 ml 720 ml Output Total 800 ml 1 ml Balance -800 ml 100 ml 720 ml -1 ml Intake Oral 720 ml IV Total 100 ml Output Urine Total 800 ml Stool Total 1 ml # Voids 3 # Bowel Movements 0 1 Result Diagram: 01/05/18 0645 01/05/18 0645 Other Results Laboratory Tests Test 01/05/18 06:45 Prothromb Time International Ratio 1.3 RATIO Prothrombin Time 13.1 SEC (9.8-11.6) Objective Remarks Sleeping but arousable. No acute distress. Confused at baseline. Left lower extremity: Patient actively uses his left leg to transition positions in bed. He lays on his left hip and states this is more comfortable than on his back. He has full active range of motion of his hip with minimal discomfort. Neurovascularly intact distally. Negative Homans. Assessment & Plan Assessment and Plan 52-year-old gentleman who presents with alcohol withdrawal and concern for fevers of unknown origin CT scan reviewed which demonstrates a question of possible left hip effusion. On exam today, he has minimal if any signs of septic arthritis. Patient states it is more comfortable to lay on his left hip which reportedly has an effusion then to lay on his back. He uses his left leg and weightbears in bed as he transitions position. He has full active range of motion on exam today with no discomfort. He states his pain is in his left buttocks and is the exact same pain he has from his radiculopathy and not groin pain. My suspicion for septic arthritis is low, however given his positive blood cultures I would agree with an MRI. No orthopedic intervention at this time until patient obtains his MRI. Should this demonstrate a fluid collection, I would recommend interventional radiology aspirate this. Ami Lauren MD Jan 05, 2018 08:42
--- NOTE | 2018-01-05 09:53 | RADRPT ---
EXAM DATE/TIME: 01/05/2018 09:07 [place] COMPARISON: CT ABDOMEN & PELVIS W CONTRAST, January 03, 2018, 22:13. INDICATIONS : Joint effusion. MEDICAL HISTORY : Hypertension. Cardiovascular disease Hepatitis C. SURGICAL HISTORY : CABG Abdominal aortic aneurysm repair. Valve replacment. ENCOUNTER: Initial ACUITY: 1 day PAIN SCORE: 5/10 LOCATION: Left hip TECHNIQUE: Multiplanar, multisequence MRI examination was performed without contrast. FINDINGS: Marrow signal the bones about the pelvis is inhomogeneous in nonspecific fashion. There is no osteom yelitis. There is no joint effusion. In the left hip there is induration in the muscles of the obturator internus and obturator externus. There is small amount of fluid fluid present within the muscle groups as well. This fluid extends d own the medial side of the leg involving abductor longus and brevis. This has the appearance of the hematoma. Premature process is thought to be less likely. CONCLUSION: Probable hematoma as above. There is no joint effusion. There is loss myelitis. Co rrelation is suggested. Wisam Bray MD FACR on January 05, 2018 at 9:46 Board Certified Radiologist. This report was verified electronically.
--- NOTE | 2018-01-05 11:22 | PD.CONS ---
HPI History of Present Illness This is a 52 year old male with past medical history which includes tetralogy of flow repaired as a he continues to follow with [facility], prosthetic pulmonary and Tricuspid cardiac valves with post op PE, atrial fibrillation on Coumadin, CAD s/p cardiac stent and CABG, hypertension, DM, Hepatitis C, hyperlipidemia, ETOH abuse last alcoholic drink was 2 days ago who is here for evaluation of visual hallucinations and fever, and gen. unwell feeling. He was found to have Sepsis, 4/4 positive Bcx Gram positive cocci, source to be determined. GI consult requested by cardiology for evaluation prior to having LEÓN done. Pt denies nausea, vomiting, abd pain, diarrhea, hematochezia or melena. (Lola Hayes) PFSH Past Medical History Chronic low back pain with radiculopathy, alcoholism, tetralogy of Fallot status post repair, hepatitis C, hypertension, diabetes Past Surgical History Multiple cardiac procedures (Lola Hayes) Coded Allergies: penicillin G (Unverified Allergy, Mild, 01/03/18) Medications Current Medications Medications (Trade) Dose Ordered Sig/Shantal Route Start Time Stop Time Status Last Admin (Romazicon Inj) 0.2 mg Q1M PRN IV PUSH 01/03/18 23:15 (Ativan) 1 mg Q4H PRN PO 01/03/18 23:15 01/04/18 17:35 (Ativan Inj) 1 mg Q4H PRN IV PUSH 01/03/18 23:15 01/05/18 08:52 (Ativan) 2 mg Q2H PRN PO 01/03/18 23:15 01/03/18 23:50 (Ativan Inj) 2 mg Q2H PRN IV PUSH 01/03/18 23:15 (Ativan Inj) 2 mg Q1H PRN IV PUSH 01/03/18 23:15 (Ativan Inj) 2 mg Q15M PRN IV PUSH 01/03/18 23:15 (Zofran Inj) 4 mg Q6HR PRN IV PUSH 01/03/18 23:15 (Tylenol) 500 mg Q6H PRN PO 01/03/18 23:30 01/04/18 02:18 (Morphine Inj) 2 mg Q4H PRN IV PUSH 01/03/18 23:30 Potassium Chloride/Sodium Chloride 1,000 ml @ 50 mls/hr Q20H IV 01/04/18 09:30 01/04/18 10:07 Miscellaneous Information SPECIFIC LAB TO BE DRAWN:[facility]... ONCE ONCE .XX 01/06/18 01:45 01/06/18 01:46 (Ecotrin Ec) 81 mg DAILY PO 01/05/18 09:00 01/05/18 08:05 (Lanoxin) 0.25 mg DAILY PO 01/05/18 09:00 01/05/18 08:04 (PROzac) 60 mg DAILY PO 01/05/18 09:00 01/05/18 08:05 (Cozaar) 100 mg DAILY PO 01/05/18 09:00 01/05/18 08:05 (Coumadin) 5 mg DAILY@1600 PO 01/05/18 16:00 Future Hold (Pravachol) 40 mg DAILY PO 01/05/18 09:00 01/05/18 08:04 (D50w (Vial) Inj) 50 ml UNSCH PRN IV PUSH 01/04/18 13:30 (Glucagon Inj) 1 mg UNSCH PRN OTHER 01/04/18 13:30 (NovoLOG SUPPLEMENTAL SCALE) 1 ACHS SLIDING SCALE SQ 01/04/18 17:00 01/04/18 22:19 (Librium) 25 mg TID PO 01/04/18 14:15 01/05/18 08:04 Cefazolin Sodium/ Dextrose 50 ml @ 150 mls/hr Q8HR IV 01/04/18 22:00 01/05/18 05:15 (Restoril) 15 mg HS PRN PO 01/04/18 23:45 Family History Noncontributory Social History Denies tobacco use. Reports alcohol consumption at least a couple beers per night. Denies illicit drug use (Amawi,Khawpanda ACID TENDER) Review of Systems Constitutional: COMPLAINS OF: Fatigue, Fever, Chills Endocrine: DENIES: Polyuria Eyes: DENIES: Double Vision Ears, nose, mouth, throat: DENIES: Hoarseness Respiratory: DENIES: Shortness of breath Cardiovascular: DENIES: Lower Extremity Edema Gastrointestinal: DENIES: Abdominal pain, Black stools, Bloody stools, Diarrhea , Nausea, Vomiting, Difficulty Swallowing, Anorexia, Odynophagia, Swelling of Abdomen, Heartburn, Hematemesis Genitourinary: DENIES: Hematuria Musculoskeletal: DENIES: Neck pain Integumentary: DENIES: Jaundice Hematologic/lymphatic: DENIES: Bruising Immunologic/allergic: DENIES: Eczema Neurologic: DENIES: Abnormal gait Psychiatric: DENIES: Anxiety (Lola Hayes) GI Exam Vitals I&O Vital Signs Date Time Temp Pulse Resp B/P (MAP) Pulse Ox O2 Delivery O2 Flow Rate FiO2 01/05/18 09:22 105 01/05/18 07:53 99.4 76 20 175/81 (112) 94 01/05/18 05:13 98.8 101 18 140/77 (98) 99 01/05/18 01:04 98.4 107 18 132/88 (103) 96 01/05/18 00:30 114 01/04/18 21:08 100.1 100 18 154/78 (103) 97 01/04/18 20:30 98 01/04/18 16:10 99.3 106 20 170/94 (119) 94 01/04/18 15:59 117 01/04/18 13:00 95 01/04/18 12:47 99.3 98 20 134/84 (101) 97 I/O 01/04/18 01/04/18 01/04/18 01/05/18 01/05/18 01/05/18 07:00 15:00 23:00 07:00 15:00 23:00 Intake Total 100 ml 720 ml Output Total 800 ml 1 ml Balance -800 ml 100 ml 720 ml -1 ml Intake Oral 720 ml IV Total 100 ml Output Urine Total 800 ml Stool Total 1 ml # Voids 3 # Bowel Movements 0 1 Imaging Last Impressions Hip MRI 01/05/18 0000 Signed Impressions: Service Date/Time: Friday, January 05, 2018 09:07 - CONCLUSION: Probable hematoma as above. There is no joint effusion. There is loss myelitis. Correlation is suggested. Wisam Bray MD FACR Lumbar Spine CT 01/03/18 0000 Signed Impressions: Service Date/Time: Wednesday, January 03, 2018 22:13 - CONCLUSION: 1. Multiple disc bulges in the lower lumbar spine with mild encroachment on the lateral recesses and neural foramina. No acute fracture. Mild scoliosis. Mild degenerative disc disease. Mani Robison MD Chest X-Ray 01/03/18 0000 Signed Impressions: Service Date/Time: Wednesday, January 03, 2018 20:06 - CONCLUSION: 1. Cardiomegaly. No acute findings. Mani Robison MD Abdomen/Pelvis CT 01/03/18 0000 Signed Impressions: Service Date/Time: Wednesday, January 03, 2018 22:13 - CONCLUSION: 1. Probable left hip joint effusion with some inflammatory or edematous changes in the musculature around the anterior left hip. Would be better evaluated with MRI. 2. No acute findings within the abdomen and pelvis. Multiple calcified gallstones. Small hiatal hernia. Mani Robison MD Laboratory Test 01/04/18 18:00 01/05/18 06:45 Urine Opiates Screen NEG Urine Barbiturates Screen NEG Urine Amphetamines Screen NEG Urine Benzodiazepines Screen NEG Urine Cocaine Screen NEG Urine Cannabinoids Screen NEG White Blood Count 11.6 TH/MM3 Red Blood Count 3.80 MIL/MM3 Hemoglobin 12.2 GM/DL Hematocrit 35.0 % Mean Corpuscular Volume 92.3 FL Mean Corpuscular Hemoglobin 32.2 PG Mean Corpuscular Hemoglobin Concent 34.9 % Red Cell Distribution Width 13.3 % Platelet Count 273 TH/MM3 Mean Platelet Volume 9.2 FL Neutrophils (%) (Auto) 80.8 % Lymphocytes (%) (Auto) 6.2 % Monocytes (%) (Auto) 12.3 % Eosinophils (%) (Auto) 0.5 % Basophils (%) (Auto) 0.2 % Neutrophils # (Auto) 9.4 TH/MM3 Lymphocytes # (Auto) 0.7 TH/MM3 Monocytes # (Auto) 1.4 TH/MM3 Eosinophils # (Auto) 0.1 TH/MM3 Basophils # (Auto) 0.0 TH/MM3 CBC Comment DIFF FINAL Differential Comment Prothrombin Time 13.1 SEC Prothromb Time International Ratio 1.3 RATIO Blood Urea Nitrogen 13 MG/DL Creatinine 0.63 MG/DL Random Glucose 76 MG/DL Calcium Level 8.4 MG/DL Sodium Level 132 MEQ/L Potassium Level 3.2 MEQ/L Chloride Level 94 MEQ/L Carbon Dioxide Level 29.9 MEQ/L Anion Gap 8 MEQ/L Estimat Glomerular Filtration Rate 134 ML/MIN Date/Time Source Procedure Growth Status 01/03/18 22:00 Blood Peripheral Aerobic Blood Culture - Final Staphylococcus Aureus Complete 4/13/18 22:00 Anaerobic Blood Culture - Final Staphylococcus Aureus Complete 01/03/18 20:15 Nasal Washing Influenza Types A,B Antigen (CHELSI) - Final NEGATIVE FOR FLU A AND B ANTIGEN.... Complete Physical Examination HEENT: normocephalic; atraumatic; no jaundice. CHEST: Chest is clear to auscultation and percussion. CARDIAC: Regular rate and rhythm ABDOMEN: Soft, nondistended, nontender; no hepatosplenomegaly; bowel sounds are present in all four quadrants. EXTREMITIES: No clubbing, cyanosis, or edema. SKIN: Normal; no rash; no jaundice. ELECTRICITY TRADING ANALYST: No focal deficits; alert and oriented times three. (Lola Hayes) Assessment and Plan Plan - Sepsis, / positive Bcx Gram positive cocci, source to be determined- GI consult requested by cardiology for evaluation prior to having LEÓN done. Pt denies nausea, vomiting, abd pain, diarrhea, hematochezia or melena. - Alcohol abuse- counselled - Hx of hep-C- op eval - PE, atrial fibrillation on Coumadin, - Hx of tetralogy of flow repaired as a he continues to follow with [facility], prosthetic pulmonary and Tricuspid cardiac valves with post op PE, atrial fibrillation on Coumadin, CAD s/p cardiac stent and CABG, hypertension, DM, per attending Plan: - GEM - EGD tomorrow - NPO mn - obtain consents - Alcohol cessation - Patient seen and examined by Dr. Garcia and myself and this note is written on his behalf. (Lola Hayes) Plan Patient was seen and examined, agree with above note, patient will need an upper endoscopy for evaluation of the esophagus to make sure that there is no varices or other etiology contraindicate to do LEÓN, this will be done tomorrow, patient instructed to avoid alcohol completely also (Carri Garcia MD) Lola Hayes Jan 05, 2018 11:22 Carri Garcia MD Jan 05, 2018 15:17
[2018-01-05] MEDS ORDERED: ENOXAPARIN SODIUM 40 MG/0.4 ML SYRINGE SQ ONE (11:30)
[2018-01-05] MEDS: POTASSIUM CHLORIDE 20 MEQ CONTROLLED RELEASE TAB PO SCH ×2 (11:45→15:39)
--- NOTE | 2018-01-05 11:48 | HHI.PR ---
Subjective Remarks Pt continues to c/o left hip/buttock pain. Objective Vitals Vital Signs Date Time Temp Pulse Resp B/P (MAP) Pulse Ox O2 Delivery O2 Flow Rate FiO2 01/05/18 09:22 105 01/05/18 07:53 99.4 76 20 175/81 (112) 94 01/05/18 05:13 98.8 101 18 140/77 (98) 99 01/05/18 01:04 98.4 107 18 132/88 (103) 96 01/05/18 00:30 114 01/04/18 21:08 100.1 100 18 154/78 (103) 97 01/04/18 20:30 98 01/04/18 16:10 99.3 106 20 170/94 (119) 94 01/04/18 15:59 117 01/04/18 13:00 95 01/04/18 12:47 99.3 98 20 134/84 (101) 97 Result Diagram: 01/05/18 0645 01/05/18 0645 Imaging Last Impressions Hip MRI 01/05/18 0000 Signed Impressions: Service Date/Time: Friday, January 05, 2018 09:07 - CONCLUSION: Probable hematoma as above. There is no joint effusion. There is loss myelitis. Correlation is suggested. Wisam Bray MD FACR Lumbar Spine CT 01/03/18 0000 Signed Impressions: Service Date/Time: Wednesday, January 03, 2018 22:13 - CONCLUSION: 1. Multiple disc bulges in the lower lumbar spine with mild encroachment on the lateral recesses and neural foramina. No acute fracture. Mild scoliosis. Mild degenerative disc disease. Mani Robison MD Chest X-Ray 01/03/18 0000 Signed Impressions: Service Date/Time: Wednesday, January 03, 2018 20:06 - CONCLUSION: 1. Cardiomegaly. No acute findings. Mani Robison MD Abdomen/Pelvis CT 01/03/18 0000 Signed Impressions: Service Date/Time: Wednesday, January 03, 2018 22:13 - CONCLUSION: 1. Probable left hip joint effusion with some inflammatory or edematous changes in the musculature around the anterior left hip. Would be better evaluated with MRI. 2. No acute findings within the abdomen and pelvis. Multiple calcified gallstones. Small hiatal hernia. Mani Robison MD Objective Remarks GENERAL: This is a well-nourished, well-developed patient, in no apparent distress. CARDIOVASCULAR: Regular rate and rhythm without murmurs, gallops, or rubs. RESPIRATORY: Clear to auscultation. Breath sounds equal bilaterally. No wheezes , rales, or rhonchi. GASTROINTESTINAL: Abdomen soft, non-tender, nondistended. Normal active bowel sounds MUSCULOSKELETAL: Extremities without clubbing, cyanosis, or edema. NEURO: Alert & Oriented x4 to person, place, time, situation. 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 Tricuspid and pulmonary valves - echocardiogram (01/05/18). Hyperdynamic LV. EF 65-70%. No overt endocarditis identified. - Blood Culture (01/03/18) --> MSSA 12/25 bottles - UA (01/03) no culture indicated - CXR (01/03) Cardiomegaly. No acute findings CT abdomen pelvis (01/03) 1. Probable left hip joint effusion with some inflammatory or edematous changes in the musculature around the anterior left hip. Would be better evaluated with MRI. 2. No acute findings within the abdomen and pelvis. Multiple calcified gallstones. Small hiatal hernia. MRI Left Hip (01/05) probable hematoma at obturator internus and obturator externus. NO joint effusion - Vancomycin (01/03 - 01/04) - Cefepime (01/04) - Cefazolin (01/04 - present) - Case d/w Infectious Disease, Dr. Carrillo, (01/04). - Case d/w Cardiology, Dr. Nj (01/04). - Pt will need LEÓN - Cardiology requesting EGD prior to LEÓN - Pt seen by Gastroenterology. Pt to have EGD (01/06). - DVT prophylaxis - lovenox 40mg x once - consider aspiration for fluid collection at left hip muscles to verify hematoma and NOT abscess. - supportive care - Case d/w pt/mother at length (01/04/18). All questions answered to the best of my ability. (2) Alcohol withdrawal ICD Codes: F10.239 - Alcohol dependence with withdrawal, unspecified Status: Acute Plan: Scheduled Librium 25 mg PO TID CIWA protocol (3) Hyponatremia ICD Codes: E87.1 - Hypo-osmolality and hyponatremia Status: Acute Plan: Patient does have ETOH abuse Na on admission 120 -> (01/04) 0319 130 -> (01/04) 1000 130, 132 (01/05) - NS to 1/2 NS at 50 ml/H - recheck BMP in AM (4) DM (diabetes mellitus) ICD Codes: E11.9 - Type 2 diabetes mellitus without complications Status: Chronic Plan: Diabetic diet - HgA1C 5.9 (12/04/17) - Accu checks ACHS with SSI coverage (5) Pulmonary embolism ICD Codes: I26.99 - Other pulmonary embolism without acute cor pulmonale Plan: - prosthetic cardiac valves with post op PE - unclear if pt actually had PE. Could NOT find documentation for pulmonary embolism. - However per [place] records pt did have a thrombus on porcine valve following porcine valve placement in 2016. - Initial INR 1.5 upon [place] admission. do not believe that patient has been taking Coumadin as prescribed - coumadin on hold for possible procedures - repeat INR in AM (6) Hepatitis C, chronic ICD Codes: B18.2 - Chronic viral hepatitis C Status: Chronic Plan: - Pt has had a few visits with Dr. Jamal Mixon - Pt has NOT yet started treatment for Hep C. Problem Qualifiers (1) Sepsis: Qualified Codes: A41.9 - Sepsis, unspecified organism (2) Alcohol withdrawal: Qualified Codes: F10.230 - Alcohol dependence with withdrawal, uncomplicated (3) DM (diabetes mellitus): Qualified Codes: E11.8 - Type 2 diabetes mellitus with unspecified complications; Z79.4 - cat hooker (current) use of insulin (4) Hepatitis C, chronic: Qualified Codes: B18.2 - Chronic viral hepatitis C Peter Maddox DO Jan 05, 2018 11:48
[2018-01-05] MEDS ORDERED: ACETAMINOPHEN/HYDROcodone 325 MG/5 MG TAB PO PRN (12:45)
[2018-01-05] MEDS: ACETAMINOPHEN/HYDROcodone 325 MG/10 MG TAB PO PRN ×2 (13:22→23:29)
[2018-01-05] MEDS: MORPHINE SULFATE 2 MG/ML SYRINGE IV PUSH PRN (15:40)
[2018-01-05] MEDS ORDERED: WARFARIN SOD 5 MG TAB PO SCH (16:00)
--- NOTE | 2018-01-05 18:25 | PD.CARD.PN ---
Subjective Subjective Remarks Resting comfortable, NO new event. Objective Medications Current Medications Medications (Trade) Dose Ordered Sig/Shantal Route Start Time Stop Time Status Last Admin (Romazicon Inj) 0.2 mg Q1M PRN IV PUSH 01/03/18 23:15 (Ativan) 1 mg Q4H PRN PO 01/03/18 23:15 01/04/18 17:35 (Ativan Inj) 1 mg Q4H PRN IV PUSH 01/03/18 23:15 01/05/18 08:52 (Ativan) 2 mg Q2H PRN PO 01/03/18 23:15 01/03/18 23:50 (Ativan Inj) 2 mg Q2H PRN IV PUSH 01/03/18 23:15 (Ativan Inj) 2 mg Q1H PRN IV PUSH 01/03/18 23:15 (Ativan Inj) 2 mg Q15M PRN IV PUSH 01/03/18 23:15 (Zofran Inj) 4 mg Q6HR PRN IV PUSH 01/03/18 23:15 (Tylenol) 500 mg Q6H PRN PO 01/03/18 23:30 01/04/18 02:18 Potassium Chloride/Sodium Chloride 1,000 ml @ 50 mls/hr Q20H IV 01/04/18 09:30 01/04/18 10:07 Miscellaneous Information SPECIFIC LAB TO BE DRAWN:[facility]... ONCE ONCE .XX 01/06/18 01:45 01/06/18 01:46 (Ecotrin Ec) 81 mg DAILY PO 01/05/18 09:00 01/05/18 08:05 (Lanoxin) 0.25 mg DAILY PO 01/05/18 09:00 01/05/18 08:04 (PROzac) 60 mg DAILY PO 01/05/18 09:00 01/05/18 08:05 (Cozaar) 100 mg DAILY PO 01/05/18 09:00 01/05/18 08:05 (Pravachol) 40 mg DAILY PO 01/05/18 09:00 01/05/18 08:04 (D50w (Vial) Inj) 50 ml UNSCH PRN IV PUSH 01/04/18 13:30 (Glucagon Inj) 1 mg UNSCH PRN OTHER 01/04/18 13:30 (NovoLOG SUPPLEMENTAL SCALE) 1 ACHS SLIDING SCALE SQ 01/04/18 17:00 01/04/18 22:19 (Librium) 25 mg TID PO 01/04/18 14:15 01/05/18 17:17 Cefazolin Sodium/ Dextrose 50 ml @ 150 mls/hr Q8HR IV 01/04/18 22:00 01/05/18 12:52 (Restoril) 15 mg HS PRN PO 01/04/18 23:45 ([place] 5-325 Mg) 1 tab Q6H PRN PO 01/05/18 12:45 ([place] 10-325 Mg) 1 tab Q6H PRN PO 01/05/18 12:45 01/05/18 13:22 (Morphine Inj) 2 mg Q6H PRN IV PUSH 01/05/18 12:45 01/05/18 15:40 Vital Signs / I&O Vital Signs Date Time Temp Pulse Resp B/P (MAP) Pulse Ox O2 Delivery O2 Flow Rate FiO2 01/05/18 16:47 100 01/05/18 16:43 98.9 92 20 139/87 (104) 97 01/05/18 13:26 110 01/05/18 09:22 105 01/05/18 07:53 99.4 76 20 175/81 (112) 94 01/05/18 05:13 98.8 101 18 140/77 (98) 99 01/05/18 01:04 98.4 107 18 132/88 (103) 96 01/05/18 00:30 114 01/04/18 21:08 100.1 100 18 154/78 (103) 97 01/04/18 20:30 98 I/O 01/04/18 01/04/18 01/04/18 01/05/18 01/05/18 01/05/18 07:00 15:00 23:00 07:00 15:00 23:00 Intake Total 100 ml 720 ml 50 ml 660 ml Output Total 800 ml 1 ml Balance -800 ml 100 ml 720 ml -1 ml 50 ml 660 ml Intake Oral 720 ml 660 ml IV Total 100 ml 50 ml Output Urine Total 800 ml Stool Total 1 ml # Voids 3 # Bowel Movements 0 1 Physical Exam CONSTITUTIONAL/GENERAL: This is an adequately nourished patient, in no apparent distress. SKIN: No jaundice, rashes, or lesions. Skin temperature appropriate. Not diaphoretic. HEAD: Atraumatic. Normocephalic. EYES: Pupils equal and round and reactive. Extraocular motions intact. No scleral icterus. No injection or drainage. Fundi not examined. ENT: Hearing grossly normal. Nose without bleeding or purulent drainage. Throat without visible erythema, exudates, masses, or lesions. NECK: Trachea midline. Supple, nontender. No palpable thyroid enlargement or nodularity. CARDIOVASCULAR: Regular rate and rhythm, Holosystolic murmur 2 /6 RUSB. normal S1 and S2. No edema. RESPIRATORY/CHEST: Symmetric, unlabored respirations. Clear to auscultation. Breath sounds equal bilaterally. No wheezes, rales, or rhonchi. GASTROINTESTINAL: Abdomen soft, non-tender, nondistended. No hepato-splenomegaly , or palpable masses. No guarding. Bowel sounds present. GENITOURINARY: Without palpable bladder distension . MUSCULOSKELETAL: Extremities without clubbing, cyanosis, or edema. No joint tenderness or effusion noted. No calf tenderness. No mottling or clubbing. L hip palpation reveals some tenderness, no swelling minimal pain with PROM, some pain with AROM NEUROLOGICAL: Awake and alert. Motor and sensory grossly within normal limits. Follows commands. Cognitively sharp. Moves all extremities. PSYCHIATRIC: No obvious anxiety/depression. no apparent hallucinations or other psychotic thought process. Laboratory Laboratory Tests Test 01/05/18 06:45 White Blood Count 11.6 TH/MM3 Red Blood Count 3.80 MIL/MM3 Hemoglobin 12.2 GM/DL Hematocrit 35.0 % Mean Corpuscular Volume 92.3 FL Mean Corpuscular Hemoglobin 32.2 PG Mean Corpuscular Hemoglobin Concent 34.9 % Red Cell Distribution Width 13.3 % Platelet Count 273 TH/MM3 Mean Platelet Volume 9.2 FL Neutrophils (%) (Auto) 80.8 % Lymphocytes (%) (Auto) 6.2 % Monocytes (%) (Auto) 12.3 % Eosinophils (%) (Auto) 0.5 % Basophils (%) (Auto) 0.2 % Neutrophils # (Auto) 9.4 TH/MM3 Lymphocytes # (Auto) 0.7 TH/MM3 Monocytes # (Auto) 1.4 TH/MM3 Eosinophils # (Auto) 0.1 TH/MM3 Basophils # (Auto) 0.0 TH/MM3 CBC Comment DIFF FINAL Differential Comment Prothrombin Time 13.1 SEC Prothromb Time International Ratio 1.3 RATIO Blood Urea Nitrogen 13 MG/DL Creatinine 0.63 MG/DL Random Glucose 76 MG/DL Calcium Level 8.4 MG/DL Sodium Level 132 MEQ/L Potassium Level 3.2 MEQ/L Chloride Level 94 MEQ/L Carbon Dioxide Level 29.9 MEQ/L Anion Gap 8 MEQ/L Estimat Glomerular Filtration Rate 134 ML/MIN Imaging Last 24 hours Impressions Hip MRI 01/05/18 0000 Signed Impressions: Service Date/Time: Friday, January 05, 2018 09:07 - CONCLUSION: Probable hematoma as above. There is no joint effusion. There is loss myelitis. Correlation is suggested. Wisam Bray MD FACR Assessment and Plan Problem List: (1) ToF-PA (tetralogy of Fallot, pulmonary atresia, and VSD) ICD Codes: Q21.3 - Tetralogy of Fallot (2) S/P TOF (tetralogy of Fallot) repair ICD Codes: Z98.890 - Other specified postprocedural states; Z87.74 - Personal history of (corrected) congenital malformations of heart and circulatory system (3) Sepsis ICD Codes: A41.9 - Sepsis, unspecified organism Status: Acute (4) CAD (coronary artery disease) ICD Codes: I25.10 - Atherosclerotic heart disease of [place] coronary artery without angina pectoris Status: Chronic (5) HTN (hypertension) ICD Codes: I10 - Essential (primary) hypertension Status: Chronic (6) Pulmonary embolism ICD Codes: I26.99 - Other pulmonary embolism without acute cor pulmonale (7) Hepatitis C ICD Codes: B19.20 - Unspecified viral hepatitis C without hepatic coma Status: Chronic Assessment and Plan 1. Sepsis, 4/4 positive Bcx Gram positive cocci, source to be determined Left hip effusion,possible hematoma per MRI hip, Echocardiogram 01/03/14 showed no obvious vegetation, but LEÓN recommended if necessary. ID telecommunications consultant on board Continue Vancomycin (pharmacy to dose) and Cefepine will arrange LEÓN on Saturday. Because of hx of alcohol abuse, will need GI consult possible EGD to rule out esophageal pathology prior to LEÓN. Appreciate GI input, pending EGD tomorrow. 2. Alcohol dependence with withdrawal, unspecified Scheduled Librium 25 mg PO TID CIWA protocol 3. hx of Congenital heart disease, s/p TOF repair, including possible VSD repair , TVR, PVR, and single V CABG. Echo 01/04/18 showed normal LVEF, no residual VSD. normal TV prosthesis function. 4. hx of pulmonary embolism without acute cor pulmonale Initial INR 1.5, continue Coumadin, goal INR 2-3 CP events specialist will resume care of this patient tomorrow Problem Qualifiers (1) Sepsis: Qualified Codes: A41.9 - Sepsis, unspecified organism Wing Martha Nj MD Jan 05, 2018 18:25
[2018-01-05] MEDS ORDERED: INSULIN HUMAN REGULAR 1,000 UNITS/10 ML VIAL SQ PRN (19:15)
[2018-01-05] MEDS ORDERED: POVIDONE IODINE 5% (ANTISEPSIS KIT) 4 APPLICATIONS EACH NARE PRN (19:15)
[2018-01-05] MEDS ORDERED: CHLORHEXIDINE GLUCONATE 2 % 1 PACK (2 CLOTHS) TOPICAL PRN (19:15)
[2018-01-05] MEDS ORDERED: SODIUM CHLORID 0.9% 500 ML IV PRN (19:15)
[2018-01-05] MEDS ORDERED: METOPROLOL TARTRATE 25 MG TAB PO PRN (19:15)
[2018-01-05] MEDS ORDERED: LACTATED RINGER'S 1000 ML IV PRN (19:15)
[2018-01-06] VITALS (9 sets, daily range): BP systolic 133–161; BP diastolic 72–84; PULSE 79–87; RESP 16–18; TEMP 97.2–98.1; O2SAT 96–99
[2018-01-06] MEDS: 1/2 NS + KCL 20 MEQ INJ 1,000 ML IV SCH ×2 (01:30→08:15)
[2018-01-06] MEDS ORDERED: PHARMACY ORDERED LAB ONE (01:45)
[2018-01-06] MEDS: ceFAZolin 2 GM PREMIX 50 ML IV SCH ×3 (06:14→22:05)
[2018-01-06] MEDS: INSULIN ASPART SUPPLEMENTAL SCALE SQ SCH ×4 (07:20→22:05)
--- NOTE | 2018-01-06 08:02 | PD.CARD.PN ---
Subjective Subjective Remarks Still with left hip pain. Denies any fevers. No cardiac complaints. N.p.o. for EGD today. ([facility] Leonardo) Objective Medications Current Medications Medications (Trade) Dose Ordered Sig/Shantal Route Start Time Stop Time Status Last Admin (Romazicon Inj) 0.2 mg Q1M PRN IV PUSH 01/03/18 23:15 (Ativan) 1 mg Q4H PRN PO 01/03/18 23:15 01/04/18 17:35 (Ativan Inj) 1 mg Q4H PRN IV PUSH 01/03/18 23:15 01/05/18 08:52 (Ativan) 2 mg Q2H PRN PO 01/03/18 23:15 01/03/18 23:50 (Ativan Inj) 2 mg Q2H PRN IV PUSH 01/03/18 23:15 (Ativan Inj) 2 mg Q1H PRN IV PUSH 01/03/18 23:15 (Ativan Inj) 2 mg Q15M PRN IV PUSH 01/03/18 23:15 (Zofran Inj) 4 mg Q6HR PRN IV PUSH 01/03/18 23:15 (Tylenol) 500 mg Q6H PRN PO 01/03/18 23:30 01/04/18 02:18 Potassium Chloride/Sodium Chloride 1,000 ml @ 50 mls/hr Q20H IV 01/04/18 09:30 01/04/18 10:07 (Ecotrin Ec) 81 mg DAILY PO 01/05/18 09:00 01/05/18 08:05 (Lanoxin) 0.25 mg DAILY PO 01/05/18 09:00 01/05/18 08:04 (PROzac) 60 mg DAILY PO 01/05/18 09:00 01/05/18 08:05 (Cozaar) 100 mg DAILY PO 01/05/18 09:00 01/05/18 08:05 (Pravachol) 40 mg DAILY PO 01/05/18 09:00 01/05/18 08:04 (D50w (Vial) Inj) 50 ml UNSCH PRN IV PUSH 01/04/18 13:30 (Glucagon Inj) 1 mg UNSCH PRN OTHER 01/04/18 13:30 (NovoLOG SUPPLEMENTAL SCALE) 1 ACHS SLIDING SCALE SQ 01/04/18 17:00 01/05/18 23:14 (Librium) 25 mg TID PO 01/04/18 14:15 01/05/18 17:17 Cefazolin Sodium/ Dextrose 50 ml @ 150 mls/hr Q8HR IV 01/04/18 22:00 01/06/18 06:14 (Restoril) 15 mg HS PRN PO 01/04/18 23:45 ([place] 5-325 Mg) 1 tab Q6H PRN PO 01/05/18 12:45 ([place] 10-325 Mg) 1 tab Q6H PRN PO 01/05/18 12:45 01/05/18 23:29 (Morphine Inj) 2 mg Q6H PRN IV PUSH 01/05/18 12:45 01/05/18 15:40 Lactated Ringer's 1,000 ml @ 30 mls/hr Q24H PRN IV 01/05/18 19:15 01/08/18 19:14 Sodium Chloride 500 ml @ 30 mls/hr [id number] PRN IV 01/05/18 19:15 01/08/18 19:14 (Lopressor) 25 mg FISHER EEL PRN PO 01/05/18 19:15 01/08/18 19:14 (Betadine 5% Antisepsis Kit) 1 applic FISHER EEL PRN EACH NARE 01/05/18 19:15 01/08/18 19:14 (Chlorhexidine 2% Cloth) 3 pack FISHER EEL PRN TOPICAL 01/05/18 19:15 01/08/18 19:14 (NovoLIN R INJ) See Protocol Table ... FISHER EEL PRN SQ 01/05/18 19:15 01/08/18 19:14 Vital Signs / I&O Vital Signs Date Time Temp Pulse Resp B/P (MAP) Pulse Ox O2 Delivery O2 Flow Rate FiO2 01/06/18 05:30 97.3 84 18 142/84 (103) 99 01/06/18 00:00 97.2 83 18 159/72 (101) 99 01/05/18 21:07 97.3 82 18 150/81 (104) 95 01/05/18 16:47 100 01/05/18 16:43 98.9 92 20 139/87 (104) 97 01/05/18 13:26 110 01/05/18 09:22 105 I/O 01/05/18 01/05/18 01/05/18 01/06/18 01/06/18 01/06/18 06:59 14:59 22:59 06:59 14:59 22:59 Intake Total 50 ml 660 ml Output Total 1 ml 900 ml Balance -1 ml 50 ml 660 ml -900 ml Intake Oral 660 ml IV Total 50 ml Output Urine Total 900 ml Stool Total 1 ml # Voids 3 2 # Bowel Movements 1 Physical Exam GENERAL: Well-developed well-nourished. In no acute distress. NECK: No carotid bruits. No JVD. CARDIOVASCULAR: Regular rate and rhythm. 2/6 holosystolic murmur appreciated at left sternal border. RESPIRATORY: No accessory muscle use. Clear to auscultation. Breath sounds equal bilaterally. MUSCULOSKELETAL: No clubbing or cyanosis. No edema. NEUROLOGICAL: Awake and alert. Normal speech. Imaging Last Impressions Hip MRI 01/05/18 0000 Signed Impressions: Service Date/Time: Friday, January 05, 2018 09:07 - CONCLUSION: Probable hematoma as above. There is no joint effusion. There is loss myelitis. Correlation is suggested. Wisam Bray MD FACR Lumbar Spine CT 01/03/18 0000 Signed Impressions: Service Date/Time: Wednesday, January 03, 2018 22:13 - CONCLUSION: 1. Multiple disc bulges in the lower lumbar spine with mild encroachment on the lateral recesses and neural foramina. No acute fracture. Mild scoliosis. Mild degenerative disc disease. Mani Robison MD Chest X-Ray 01/03/18 0000 Signed Impressions: Service Date/Time: Wednesday, January 03, 2018 20:06 - CONCLUSION: 1. Cardiomegaly. No acute findings. Mani Robison MD Abdomen/Pelvis CT 01/03/18 0000 Signed Impressions: Service Date/Time: Wednesday, January 03, 2018 22:13 - CONCLUSION: 1. Probable left hip joint effusion with some inflammatory or edematous changes in the musculature around the anterior left hip. Would be better evaluated with MRI. 2. No acute findings within the abdomen and pelvis. Multiple calcified gallstones. Small hiatal hernia. Mani Robison MD ([facility]) Assessment and Plan Problem List: (1) ToF-PA (tetralogy of Fallot, pulmonary atresia, and VSD) ICD Codes: Q21.3 - Tetralogy of Fallot (2) S/P TOF (tetralogy of Fallot) repair ICD Codes: Z98.890 - Other specified postprocedural states; Z87.74 - Personal history of (corrected) congenital malformations of heart and circulatory system (3) Sepsis ICD Codes: A41.9 - Sepsis, unspecified organism Status: Acute (4) CAD (coronary artery disease) ICD Codes: I25.10 - Atherosclerotic heart disease of douglas coronary artery without angina pectoris Status: Chronic (5) HTN (hypertension) ICD Codes: I10 - Essential (primary) hypertension Status: Chronic (6) Pulmonary embolism ICD Codes: I26.99 - Other pulmonary embolism without acute cor pulmonale Status: Chronic (7) Hepatitis C ICD Codes: B19.20 - Unspecified viral hepatitis C without hepatic coma Status: Chronic Assessment and Plan This is a 52-year-old man, admitted for left hip pain, found to have MSSA bacteremia. Bacteremia, 12/25 positive Bcx Gram positive cocci, source to be determined: Left hip effusion,possible hematoma per MRI hip, Echocardiogram 01/03/14 showed no obvious vegetation, LEÓN requested, will plan for today if possible ID consulted, antibiotics per ID Alcohol dependence: Reportedly drinks 2-4 beers daily. GI consulted for EGD. hx of Congenital heart disease, s/p TOF repair, including possible VSD repair, TVR, PVR, and single V CABG: Echo 01/04/18 showed normal LVEF, no residual VSD. normal TV prosthesis function. hx of pulmonary embolism and atrial fibrillation: Warfarin on hold with upcoming GI procedure. Discussed Condition With Patient, hospitalist, Dr. Temple ([facility] Leonardo) Assessment and Plan LEÓN in am NPO p MN (Jose Temple MD) Problem Qualifiers (1) Sepsis: Qualified Codes: A41.9 - Sepsis, unspecified organism Chaparro Leonardo Jan 06, 2018 08:02 Jose Temple MD Jan 06, 2018 16:44
[2018-01-06] MEDS: PRAVASTATIN SOD 40 MG TAB PO SCH (08:11)
[2018-01-06] MEDS: ASPIRIN EC 81 MG TABEC PO SCH (08:11)
[2018-01-06] MEDS: LOSARTAN 50 MG TAB PO SCH (08:15)
[2018-01-06] MEDS: DIGOXIN 0.25 MG TAB PO SCH (08:15)
[2018-01-06] MEDS: chlordiazePOXIDE 25 MG CAP PO SCH ×3 (08:16→17:58)
[2018-01-06] MEDS: FLUoxetine HCL 20 MG CAP PO SCH (08:16)
[2018-01-06] MEDS: ACETAMINOPHEN/HYDROcodone 325 MG/10 MG TAB PO PRN ×2 (08:17→14:58)
--- NOTE | 2018-01-06 08:26 | HHI.PR ---
Subjective Remarks no new complaints Objective Vitals heart reg lung cta abd s/nt ext no edema Vital Signs Date Time Temp Pulse Resp B/P (MAP) Pulse Ox O2 Delivery O2 Flow Rate FiO2 01/06/18 05:30 97.3 84 18 142/84 (103) 99 01/06/18 00:00 97.2 83 18 159/72 (101) 99 01/05/18 21:07 97.3 82 18 150/81 (104) 95 01/05/18 16:47 100 01/05/18 16:43 98.9 92 20 139/87 (104) 97 01/05/18 13:26 110 01/05/18 09:22 105 01/06/18 01/06/18 01/07/18 15:00 23:00 07:00 Output Total 900 ml Balance -900 ml Output Urine Total 900 ml Result Diagram: 01/05/18 0645 01/05/18 0645 Imaging Last Impressions Hip MRI 01/05/18 0000 Signed Impressions: Service Date/Time: Friday, January 05, 2018 09:07 - CONCLUSION: Probable hematoma as above. There is no joint effusion. There is loss myelitis. Correlation is suggested. Wisam Bray MD FACR Lumbar Spine CT 01/03/18 0000 Signed Impressions: Service Date/Time: Wednesday, January 03, 2018 22:13 - CONCLUSION: 1. Multiple disc bulges in the lower lumbar spine with mild encroachment on the lateral recesses and neural foramina. No acute fracture. Mild scoliosis. Mild degenerative disc disease. Mani Robison MD Chest X-Ray 01/03/18 0000 Signed Impressions: Service Date/Time: Wednesday, January 03, 2018 20:06 - CONCLUSION: 1. Cardiomegaly. No acute findings. Mani Robison MD Abdomen/Pelvis CT 01/03/18 0000 Signed Impressions: Service Date/Time: Wednesday, January 03, 2018 22:13 - CONCLUSION: 1. Probable left hip joint effusion with some inflammatory or edematous changes in the musculature around the anterior left hip. Would be better evaluated with MRI. 2. No acute findings within the abdomen and pelvis. Multiple calcified gallstones. Small hiatal hernia. 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 Tricuspid and pulmonary valves - echocardiogram (01/05/18). Hyperdynamic LV. EF 65-70%. No overt endocarditis identified. - Blood Culture (01/03/18) --> MSSA 12/25 bottles - UA (01/03) no culture indicated - CXR (01/03) Cardiomegaly. No acute findings CT abdomen pelvis (01/03) 1. Probable left hip joint effusion with some inflammatory or edematous changes in the musculature around the anterior left hip. Would be better evaluated with MRI. 2. No acute findings within the abdomen and pelvis. Multiple calcified gallstones. Small hiatal hernia. MRI Left Hip (01/05) probable hematoma at obturator internus and obturator externus. NO joint effusion - Vancomycin (01/03 - 01/04) - Cefepime (01/04) - Cefazolin (01/04 - present) - Case d/w Infectious Disease, Dr. Carrillo, (01/04). - Case d/w Cardiology, Dr. Nj (01/04). - Pt will need GRAYSON - Cardiology requesting EGD prior to GRAYSON - Pt seen by Gastroenterology. Pt to have EGD (01/06). - consider aspiration for fluid collection at left hip muscles to verify hematoma and NOT abscess. will await egd and then grayson. f/u survellience cx on 01/05. f/u pending labs. (2) Alcohol withdrawal ICD Codes: F10.239 - Alcohol dependence with withdrawal, unspecified Status: Acute Plan: Scheduled Librium 25 mg PO TID CIWA protocol (3) Hyponatremia ICD Codes: E87.1 - Hypo-osmolality and hyponatremia Status: Acute Plan: Patient does have ETOH abuse Na on admission 120 -> (01/04) 0319 130 -> (01/04) 1000 130, 132 (01/05) - (4) DM (diabetes mellitus) ICD Codes: E11.9 - Type 2 diabetes mellitus without complications Status: Chronic Plan: Diabetic diet - HgA1C 5.9 (12/04/17) - Accu checks ACHS with SSI coverage (5) Pulmonary embolism ICD Codes: I26.99 - Other pulmonary embolism without acute cor pulmonale Status: Chronic Plan: - prosthetic cardiac valves with post op PE - unclear if pt actually had PE. Could NOT find documentation for pulmonary embolism. - However per [facility] records pt did have a thrombus on porcine valve following porcine valve placement in 2016. - Initial INR 1.5 upon [facility] admission. do not believe that patient has been taking Coumadin as prescribed - coumadin on hold for possible procedures - repeat INR in AM (6) Hepatitis C, chronic ICD Codes: B18.2 - Chronic viral hepatitis C Status: Chronic Plan: - Pt has had a few visits with Dr. Jamal Mixon - Pt has NOT yet started treatment for Hep C. Problem Qualifiers (1) Sepsis: Qualified Codes: A41.9 - Sepsis, unspecified organism (2) Alcohol withdrawal: Qualified Codes: F10.230 - Alcohol dependence with withdrawal, uncomplicated (3) DM (diabetes mellitus): Qualified Codes: E11.8 - Type 2 diabetes mellitus with unspecified complications; Z79.4 - intermediate project manager (current) use of insulin (4) Hepatitis C, chronic: Qualified Codes: B18.2 - Chronic viral hepatitis C Lio Dailey MD Jan 06, 2018 08:26
--- NOTE | 2018-01-06 10:13 | EKG ---
Date Performed: 01/05/2018 Time Performed: 22:44:08 PTAGE: 52 years EKG: Sinus rhythm NORMAL ECG PREVIOUS TRACING : 05/18/2016 14.02 Compared to the prior study, nonspecific ST-T wave changes have resolved. DOCTOR: Richie Francis Interpretating Date/Time 01/06/2018 10:11:51
[2018-01-06 10:25] LABS: INTERNATIONAL NORMALIZED RATIO 1.2 RATIO; PROTHROMBIN TIME - PATIENT 12.6 SEC (9.8-11.6)
[2018-01-06 10:49] LABS: AUTOMATED NEUTROPHIL # 6.5 TH/MM3 (1.8-7.7); BASOPHIL % 0.3 % (0.0-2.0); EOSINOPHIL # 0.2 TH/MM3 (0-0.4); EOSINOPHIL % 1.9 % (0.0-4.0); HEMATOCRIT 37.3 % (39.0-51.0); HEMOGLOBIN 12.5 GM/DL (13.0-17.0); LYMPH % 9.2 % (9.0-44.0); LYMPHOCYTE # 0.8 TH/MM3 (1.0-4.8); MEAN CELL VOLUME 93.1 FL (80.0-100.0); MEAN CORPUSCULAR HEMOGLOBIN 31.3 PG (27.0-34.0); MEAN CORPUSCULAR HGB CONC 33.6 % (32.0-36.0); MEAN PLATELET VOLUME 9.6 FL (7.0-11.0); MONO % 10.5 % (0.0-8.0); MONOCYTE # 0.9 TH/MM3 (0-0.9); NEUT % 78.1 % (16.0-70.0); PLATELET COUNT 287 TH/MM3 (150-450); RED BLOOD COUNT 4.01 MIL/MM3 (4.50-5.90); RED CELL DISTRIBUTION WIDTH 13.4 % (11.6-17.2); WHITE BLOOD COUNT 8.3 TH/MM3 (4.0-11.0)
[2018-01-06 10:56] LABS: ALBUMIN 1.8 GM/DL (3.4-5.0); ALKALINE PHOSPHATASE 91 U/L (45-117); ALT (GPT) 59 U/L (12-78); AST (GOT) 90 U/L (15-37); BICARBONATE 30.3 MEQ/L (21.0-32.0); BLOOD UREA NITROGEN 15 MG/DL (7-18); CALCIUM 8.5 MG/DL (8.5-10.1); CHLORIDE 98 MEQ/L (98-107); CREATININE 0.58 MG/DL (0.60-1.30); GLOMERULAR FILTRATION RATE 147 ML/MIN (>89); GLUCOSE,RANDOM 113 MG/DL (74-106); SODIUM (NA) 134 MEQ/L (136-145); TOTAL BILIRUBIN ADULT 0.6 MG/DL (0.2-1.0); TOTAL PROTEIN 7.1 GM/DL (6.4-8.2)
--- NOTE | 2018-01-06 11:42 | GIPROC ---
[facility] [address] [facility]. [facility], [id number] EGD PROCEDURE REPORT EXAM DATE: 01/06/2018 PATIENT NAME: Michael Lopez MR #: [id number] BIRTHDATE: 1965 ATTENDING: Neida Hancock MD ORDER #: [id number] MANAGER PE: Christiano Knight and Jennifer De La Rosa STATUS: inpatient INDICATIONS: The patient is a 52 yr old male here for an EGD due to clearence for grayson PROCEDURE PERFORMED: EGD w/ biopsy MEDICATIONS: None and Per Anesthesia. TOPICAL ANESTHETIC: none CONSENT: The patient understands the risks and benefits of the procedure and understands that these risks include, but are not limited to: sedation, allergic reaction, infection, perforation and/or bleeding. Alternative means of evaluation and treatment include, among others: physical exam, x-rays, and/or surgical intervention. The patient elects to proceed with this endoscopic procedure. medical equipment was checked for proper function. Hand hygiene and appropriate measures for infection prevention was taken. After the risks, benefits and alternatives of the procedure were thoroughly explained, Informed consent was verified, confirmed and timeout was successfully executed by the treatment team. The patient was anesthetized with topical anesthesia and the Pentax [id number] endoscope was introduced through the mouth and advanced to the second portion of the duodenum. Retroflexed views revealed a hiatal hernia The gastroscope was then slowly withdrawn and removed. Gastritis antrum-biopsy esophagitis distal esophagus -biopsy. ADVERSE EVENTS: There were no complications. IMPRESSIONS: 1. Gastritis antrum-biopsy esophagitis distal esophagus -biopsy 2. Retroflexed views revealed a hiatal hernia RECOMMENDATIONS: 1. Await biopsy results. Biopsy results will not be ready for 7-10 days. If you don't hear from us in two weeks, call our office for biopsy results. 2. Anti-reflux regimen 3. Continue PPI 4. Resume diet ok for GRAYSON PATIENT CONDITION: stable DISPOSITION: Inpatient REPEAT EXAM: Return 1 year EGD Neida Hancock MD eSigned: Neida Hancock MD 01/06/2018 11:42 AM cc:
[2018-01-06] MEDS ORDERED: PROPOFOL 200 MG/20 ML AMP IV ONE (12:00)
[2018-01-06] MEDS ORDERED: Gentamicin Consult Pharmacy 1 EA OTHER SCH (14:30)
[2018-01-06] MEDS ORDERED: GENTAMICIN/SOD CHL 80 MG/100 ML IV SCH (16:00)
[2018-01-06] MEDS: GENTAMICIN IV SCH (16:25)
[2018-01-06] MEDS: SODIUM CHLORIDE 0.9% IV SCH (16:25)
--- NOTE | 2018-01-06 19:34 | HHI.IDPN ---
Subjective Subjective Remarks pt is co some hip pain on going bacteremia, MSSA S gent/rif SP EGD: esophagitis LEÓN planned tomorrow 2 D echo unrevealing WBC down to normal Antibiotics cefazoline gent rif Allergies: Coded Allergies: penicillin G (Unverified Allergy, Mild, 01/03/18) Objective . Vital Signs Date Time Temp Pulse Resp B/P (MAP) Pulse Ox O2 Delivery O2 Flow Rate FiO2 01/06/18 12:00 97.3 83 18 161/73 (102) 99 01/06/18 11:42 97.1 81 20 129/72 (91) 100 01/06/18 11:42 100 Nasal Cannula 4 01/06/18 08:53 81 01/06/18 08:00 97.4 85 18 133/77 (95) 99 01/06/18 05:30 97.3 84 18 142/84 (103) 99 01/06/18 04:30 85 01/06/18 00:30 79 01/06/18 00:00 97.2 83 18 159/72 (101) 99 01/05/18 21:07 97.3 82 18 150/81 (104) 95 01/05/18 20:30 83 01/06/18 01/06/18 01/07/18 15:00 23:00 07:00 Intake Total 150 ml Output Total 900 ml Balance -750 ml IV Total 50 ml Other 100 ml Output Urine Total 900 ml . Laboratory Tests Test 01/05/18 06:45 01/06/18 09:17 White Blood Count 11.6 TH/MM3 8.3 TH/MM3 Red Blood Count 3.80 MIL/MM3 4.01 MIL/MM3 Hemoglobin 12.2 GM/DL 12.5 GM/DL Hematocrit 35.0 % 37.3 % Mean Corpuscular Volume 92.3 FL 93.1 FL Mean Corpuscular Hemoglobin 32.2 PG 31.3 PG Mean Corpuscular Hemoglobin Concent 34.9 % 33.6 % Red Cell Distribution Width 13.3 % 13.4 % Platelet Count 273 TH/MM3 287 TH/MM3 Mean Platelet Volume 9.2 FL 9.6 FL Neutrophils (%) (Auto) 80.8 % 78.1 % Lymphocytes (%) (Auto) 6.2 % 9.2 % Monocytes (%) (Auto) 12.3 % 10.5 % Eosinophils (%) (Auto) 0.5 % 1.9 % Basophils (%) (Auto) 0.2 % 0.3 % Neutrophils # (Auto) 9.4 TH/MM3 6.5 TH/MM3 Lymphocytes # (Auto) 0.7 TH/MM3 0.8 TH/MM3 Monocytes # (Auto) 1.4 TH/MM3 0.9 TH/MM3 Eosinophils # (Auto) 0.1 TH/MM3 0.2 TH/MM3 Basophils # (Auto) 0.0 TH/MM3 0.0 TH/MM3 CBC Comment DIFF FINAL DIFF FINAL Differential Comment Laboratory Tests Test 01/05/18 06:45 01/06/18 09:17 Blood Urea Nitrogen 13 MG/DL 15 MG/DL Creatinine 0.63 MG/DL 0.58 MG/DL Random Glucose 76 MG/DL 113 MG/DL Calcium Level 8.4 MG/DL 8.5 MG/DL Sodium Level 132 MEQ/L 134 MEQ/L Potassium Level 3.2 MEQ/L 4.5 MEQ/L Chloride Level 94 MEQ/L 98 MEQ/L Carbon Dioxide Level 29.9 MEQ/L 30.3 MEQ/L Anion Gap 8 MEQ/L 6 MEQ/L Estimat Glomerular Filtration Rate 134 ML/MIN 147 ML/MIN Total Protein 7.1 GM/DL Albumin 1.8 GM/DL Alkaline Phosphatase 91 U/L Aspartate Amino Transf (AST/SGOT) 90 U/L Alanine Aminotransferase (ALT/SGPT) 59 U/L Total Bilirubin 0.6 MG/DL Microbiology Date/Time Source Procedure Growth Status 01/05/18 18:46 Blood Peripheral Aerobic Blood Culture - Preliminary Gram Positive Cocci Resulted 01/05/18 18:46 Blood Peripheral Anaerobic Blood Culture - Preliminary NO GROWTH IN 1 DAY Resulted 01/05/18 18:40 Blood Peripheral Aerobic Blood Culture - Preliminary Gram Positive Cocci Resulted 01/05/18 18:40 Blood Peripheral Anaerobic Blood Culture - Preliminary NO GROWTH IN 1 DAY Resulted 01/03/18 22:00 Blood Peripheral Aerobic Blood Culture - Final Staphylococcus Aureus Complete 01/03/18 22:00 Anaerobic Blood Culture - Final Staphylococcus Aureus Complete 01/03/18 22:00 Blood Peripheral Aerobic Blood Culture - Final Staphylococcus Aureus Complete 01/03/18 22:00 Anaerobic Blood Culture - Final Staphylococcus Aureus Complete 01/03/18 20:15 Nasal Washing Influenza Types A,B Antigen (CHELSI) - Final NEGATIVE FOR FLU A AND B ANTIGEN.... Complete Imaging Last Impressions Hip MRI 01/05/18 0000 Signed Impressions: Service Date/Time: Friday, January 05, 2018 09:07 - CONCLUSION: Probable hematoma as above. There is no joint effusion. There is loss myelitis. Correlation is suggested. Wisam Bray MD FACR Lumbar Spine CT 01/03/18 0000 Signed Impressions: Service Date/Time: Wednesday, January 03, 2018 22:13 - CONCLUSION: 1. Multiple disc bulges in the lower lumbar spine with mild encroachment on the lateral recesses and neural foramina. No acute fracture. Mild scoliosis. Mild degenerative disc disease. Mani Robison MD Chest X-Ray 01/03/18 0000 Signed Impressions: Service Date/Time: Wednesday, January 03, 2018 20:06 - CONCLUSION: 1. Cardiomegaly. No acute findings. Mani Robison MD Abdomen/Pelvis CT 01/03/18 0000 Signed Impressions: Service Date/Time: Wednesday, January 03, 2018 22:13 - CONCLUSION: 1. Probable left hip joint effusion with some inflammatory or edematous changes in the musculature around the anterior left hip. Would be better evaluated with MRI. 2. No acute findings within the abdomen and pelvis. Multiple calcified gallstones. Small hiatal hernia. Mani Robison MD Physical Exam CONSTITUTIONAL/GENERAL: This is an adequately nourished patient, in no apparent distress. TUBES/LINES/DRAINS: SKIN: No jaundice, rashes, or lesions. Skin temperature appropriate. Not diaphoretic. EYES: Pupils equal and round and reactive. Extraocular motions intact. No scleral icterus. No injection or drainage. Fundi not examined. NECK: Trachea midline. Supple, nontender. No palpable thyroid enlargement or nodularity. CARDIOVASCULAR: Regular rate and rhythm Holosystolic murmur 2-3 /6 peak at R upper sternal border ? S3 gallop, no rubs. No JVD. Peripheral pulses symmetric. Well healed median sternotomy scar RESPIRATORY/CHEST: Symmetric, unlabored respirations. Clear to auscultation. Breath sounds equal bilaterally. No wheezes, rales, or rhonchi. GASTROINTESTINAL: Abdomen soft, non-tender, nondistended. No hepato-splenomegaly , or palpable masses. No guarding. Bowel sounds present. GENITOURINARY: Without palpable bladder distension . MUSCULOSKELETAL: Extremities without clubbing, cyanosis, or edema. No joint tenderness or effusion noted. No calf tenderness. No mottling or clubbing. L hip palpation reveals some tenderness, no swelling minimal pain with PROM, some pain with AROM - unchanged NEUROLOGICAL: Awake and alert. Motor and sensory grossly within normal limits. Follows commands. Cognitively sharp. Moves all extremities. PSYCHIATRIC: No obvious anxiety/depression. no apparent hallucinations or other psychotic thought process. Assessment & Plan Remarks HIgh grade MSSA bactermeia in a pt with prosthetic valve - source PVE (prosthetic valve endocarditis) vs secondary bactremia 2/2 septic L hip LEÓN MRI of L hip showed fluid cont cefazolin gent/rifampin added Monitor blood clx until streility doc'd consult IR for aspiration Roula Carrillo MD Jan 06, 2018 19:34
[2018-01-06] MEDS: RIFAMPIN 150 MG CAP PO SCH (22:03)
[2018-01-07] VITALS (9 sets, daily range): BP systolic 130–164; BP diastolic 63–80; PULSE 82–87; RESP 17–22; TEMP 97.7–98.7; O2SAT 94–97
[2018-01-07] MEDS: SODIUM CHLORIDE 0.9% IV SCH ×3 (02:23→16:51)
[2018-01-07] MEDS: GENTAMICIN IV SCH ×3 (02:23→16:51)
[2018-01-07] MEDS: ACETAMINOPHEN/HYDROcodone 325 MG/10 MG TAB PO PRN ×3 (02:30→15:08)
[2018-01-07] MEDS: ceFAZolin 2 GM PREMIX 50 ML IV SCH ×3 (05:47→22:49)
[2018-01-07] MEDS: RIFAMPIN 150 MG CAP PO SCH ×2 (07:47→22:47)
[2018-01-07] MEDS: DIGOXIN 0.25 MG TAB PO SCH (07:48)
[2018-01-07] MEDS: LOSARTAN 50 MG TAB PO SCH (07:48)
[2018-01-07] MEDS: FLUoxetine HCL 20 MG CAP PO SCH (07:48)
[2018-01-07] MEDS: PRAVASTATIN SOD 40 MG TAB PO SCH (07:48)
[2018-01-07] MEDS: ASPIRIN EC 81 MG TABEC PO SCH (07:48)
[2018-01-07] MEDS: chlordiazePOXIDE 25 MG CAP PO SCH ×2 (07:48→22:48)
[2018-01-07] MEDS: INSULIN ASPART SUPPLEMENTAL SCALE SQ SCH ×4 (07:49→22:48)
[2018-01-07 08:22] LABS: INTERNATIONAL NORMALIZED RATIO 1.2 RATIO; PROTHROMBIN TIME - PATIENT 12.4 SEC (9.8-11.6)
--- NOTE | 2018-01-07 08:28 | PD.CARD.PN ---
Subjective Subjective Remarks Still with left hip pain, asking for stronger pain medication. No cardiac complaints. Going for hip aspiration today, discussed with RN. Objective Medications Current Medications Medications (Trade) Dose Ordered Sig/Shantal Route Start Time Stop Time Status Last Admin (Romazicon Inj) 0.2 mg Q1M PRN IV PUSH 01/03/18 23:15 (Ativan) 1 mg Q4H PRN PO 01/03/18 23:15 01/04/18 17:35 (Ativan Inj) 1 mg Q4H PRN IV PUSH 01/03/18 23:15 01/05/18 08:52 (Ativan) 2 mg Q2H PRN PO 01/03/18 23:15 01/03/18 23:50 (Ativan Inj) 2 mg Q2H PRN IV PUSH 01/03/18 23:15 (Ativan Inj) 2 mg Q1H PRN IV PUSH 01/03/18 23:15 (Ativan Inj) 2 mg Q15M PRN IV PUSH 01/03/18 23:15 (Zofran Inj) 4 mg Q6HR PRN IV PUSH 01/03/18 23:15 (Tylenol) 500 mg Q6H PRN PO 01/03/18 23:30 01/04/18 02:18 Potassium Chloride/Sodium Chloride 1,000 ml @ 50 mls/hr Q20H IV 01/04/18 09:30 01/06/18 08:15 (Ecotrin Ec) 81 mg DAILY PO 01/05/18 09:00 01/05/18 08:05 (Lanoxin) 0.25 mg DAILY PO 01/05/18 09:00 01/07/18 07:48 (PROzac) 60 mg DAILY PO 01/05/18 09:00 01/07/18 07:48 (Cozaar) 100 mg DAILY PO 01/05/18 09:00 01/07/18 07:48 (Pravachol) 40 mg DAILY PO 01/05/18 09:00 01/07/18 07:48 (D50w (Vial) Inj) 50 ml UNSCH PRN IV PUSH 01/04/18 13:30 (Glucagon Inj) 1 mg UNSCH PRN OTHER 01/04/18 13:30 (NovoLOG SUPPLEMENTAL SCALE) 1 ACHS SLIDING SCALE SQ 01/04/18 17:00 01/07/18 07:49 (Librium) 25 mg TID PO 01/04/18 14:15 01/07/18 07:48 Cefazolin Sodium/ Dextrose 50 ml @ 150 mls/hr Q8HR IV 01/04/18 22:00 01/07/18 05:47 (Restoril) 15 mg HS PRN PO 01/04/18 23:45 (Donaldson 5-325 Mg) 1 tab Q6H PRN PO 01/05/18 12:45 (Donaldson 10-325 Mg) 1 tab Q6H PRN PO 01/05/18 12:45 01/07/18 08:00 (Morphine Inj) 2 mg Q6H PRN IV PUSH 01/05/18 12:45 01/05/18 15:40 Lactated Ringer's 1,000 ml @ 30 mls/hr Q24H PRN IV 01/05/18 19:15 01/08/18 19:14 Sodium Chloride 500 ml @ 30 mls/hr [id number] PRN IV 01/05/18 19:15 01/08/18 19:14 (Lopressor) 25 mg MANAGER CUSTOMER PRN PO 01/05/18 19:15 01/08/18 19:14 (Betadine 5% Antisepsis Kit) 1 applic MANAGER CUSTOMER PRN EACH NARE 01/05/18 19:15 01/08/18 19:14 (Chlorhexidine 2% Cloth) 3 pack MANAGER CUSTOMER PRN TOPICAL 01/05/18 19:15 01/08/18 19:14 (NovoLIN R INJ) See Protocol Table ... MANAGER CUSTOMER PRN SQ 01/05/18 19:15 01/08/18 19:14 Pharmacy Profile Note 0 ml @ 0 mls/hr UNSCH OTHER 01/06/18 14:30 (Rifampin) 300 mg Q12HR PO 01/06/18 21:00 01/07/18 07:47 Gentamicin Sulfate 95 mg/ Sodium Chloride 102.375 ml @ 200 mls/ hr Q8H IV 01/06/18 17:00 01/07/18 07:48 Miscellaneous Information SPECIFIC LAB TO BE ISAIA[facility]... ONCE ONCE .XX 01/07/18 16:45 01/07/18 16:46 Miscellaneous Information SPECIFIC LAB TO BE ISAIA[facility]... ONCE ONCE .XX 01/07/18 18:00 01/07/18 18:01 Vital Signs / I&O Vital Signs Date Time Temp Pulse Resp B/P (MAP) Pulse Ox O2 Delivery O2 Flow Rate FiO2 01/07/18 04:00 98.7 86 18 160/73 (102) 96 01/07/18 00:00 98.0 82 18 130/72 (91) 97 01/06/18 20:00 98.1 87 18 134/73 (93) 96 01/06/18 16:00 97.9 84 16 151/74 (99) 98 01/06/18 12:00 97.3 83 18 161/73 (102) 99 01/06/18 11:42 97.1 81 20 129/72 (91) 100 01/06/18 11:42 100 Nasal Cannula 4 01/06/18 08:53 81 I/O 01/06/18 01/06/18 01/06/18 01/07/18 01/07/18 01/07/18 07:00 15:00 23:00 07:00 15:00 23:00 Intake Total 150 ml Output Total 900 ml 800 ml Balance -750 ml -800 ml IV Total 50 ml Other 100 ml Output Urine Total 900 ml 800 ml # Voids 2 3 Physical Exam GENERAL: Well-developed well-nourished. In no acute distress. NECK: No carotid bruits. No JVD. CARDIOVASCULAR: Regular rate and rhythm. 2/6 holosystolic murmur appreciated at left sternal border. RESPIRATORY: No accessory muscle use. Clear to auscultation. Breath sounds equal bilaterally. MUSCULOSKELETAL: No clubbing or cyanosis. No edema. NEUROLOGICAL: Awake and alert. Normal speech. Laboratory Laboratory Tests Test 01/06/18 09:17 01/07/18 07:36 White Blood Count 8.3 TH/MM3 Red Blood Count 4.01 MIL/MM3 Hemoglobin 12.5 GM/DL Hematocrit 37.3 % Mean Corpuscular Volume 93.1 FL Mean Corpuscular Hemoglobin 31.3 PG Mean Corpuscular Hemoglobin Concent 33.6 % Red Cell Distribution Width 13.4 % Platelet Count 287 TH/MM3 Mean Platelet Volume 9.6 FL Neutrophils (%) (Auto) 78.1 % Lymphocytes (%) (Auto) 9.2 % Monocytes (%) (Auto) 10.5 % Eosinophils (%) (Auto) 1.9 % Basophils (%) (Auto) 0.3 % Neutrophils # (Auto) 6.5 TH/MM3 Lymphocytes # (Auto) 0.8 TH/MM3 Monocytes # (Auto) 0.9 TH/MM3 Eosinophils # (Auto) 0.2 TH/MM3 Basophils # (Auto) 0.0 TH/MM3 CBC Comment DIFF FINAL Differential Comment Prothrombin Time 12.6 SEC 12.4 SEC Prothromb Time International Ratio 1.2 RATIO 1.2 RATIO Blood Urea Nitrogen 15 MG/DL Creatinine 0.58 MG/DL Random Glucose 113 MG/DL Total Protein 7.1 GM/DL Albumin 1.8 GM/DL Calcium Level 8.5 MG/DL Alkaline Phosphatase 91 U/L Aspartate Amino Transf (AST/SGOT) 90 U/L Alanine Aminotransferase (ALT/SGPT) 59 U/L Total Bilirubin 0.6 MG/DL Sodium Level 134 MEQ/L Potassium Level 4.5 MEQ/L Chloride Level 98 MEQ/L Carbon Dioxide Level 30.3 MEQ/L Anion Gap 6 MEQ/L Estimat Glomerular Filtration Rate 147 ML/MIN Imaging Last Impressions Hip MRI 01/05/18 0000 Signed Impressions: Service Date/Time: Friday, January 05, 2018 09:07 - CONCLUSION: Probable hematoma as above. There is no joint effusion. There is loss myelitis. Correlation is suggested. Wisam Bray MD FACR Lumbar Spine CT 01/03/18 0000 Signed Impressions: Service Date/Time: Wednesday, January 03, 2018 22:13 - CONCLUSION: 1. Multiple disc bulges in the lower lumbar spine with mild encroachment on the lateral recesses and neural foramina. No acute fracture. Mild scoliosis. Mild degenerative disc disease. Mani Robison MD Chest X-Ray 01/03/18 0000 Signed Impressions: Service Date/Time: Wednesday, January 03, 2018 20:06 - CONCLUSION: 1. Cardiomegaly. No acute findings. Mani Robison MD Abdomen/Pelvis CT 01/03/18 0000 Signed Impressions: Service Date/Time: Wednesday, January 03, 2018 22:13 - CONCLUSION: 1. Probable left hip joint effusion with some inflammatory or edematous changes in the musculature around the anterior left hip. Would be better evaluated with MRI. 2. No acute findings within the abdomen and pelvis. Multiple calcified gallstones. Small hiatal hernia. Mani Robison MD Assessment and Plan Problem List: (1) ToF-PA (tetralogy of Fallot, pulmonary atresia, and VSD) ICD Codes: Q21.3 - Tetralogy of Fallot (2) S/P TOF (tetralogy of Fallot) repair ICD Codes: Z98.890 - Other specified postprocedural states; Z87.74 - Personal history of (corrected) congenital malformations of heart and circulatory system (3) Sepsis ICD Codes: A41.9 - Sepsis, unspecified organism Status: Acute (4) CAD (coronary artery disease) ICD Codes: I25.10 - Atherosclerotic heart disease of [place] coronary artery without angina pectoris Status: Chronic (5) HTN (hypertension) ICD Codes: I10 - Essential (primary) hypertension Status: Chronic (6) Pulmonary embolism ICD Codes: I26.99 - Other pulmonary embolism without acute cor pulmonale Status: Chronic (7) Hepatitis C ICD Codes: B19.20 - Unspecified viral hepatitis C without hepatic coma Status: Chronic Assessment and Plan This is a 52-year-old man, admitted for left hip pain, found to have MSSA bacteremia. Bacteremia, 12/25 positive Bcx Gram positive cocci, source to be determined: Left hip effusion,possible hematoma per MRI hip, IR to aspirate today Echocardiogram 01/03/14 showed no obvious vegetation, LEÓN requested, tentatively plan for LÓEN 01/08, n.p.o. after midnight ID consulted, antibiotics per ID Alcohol dependence: Reportedly drinks 2-4 beers daily. GI performed EGD 01/06, cleared for LEÓN. hx of Congenital heart disease, s/p TOF repair, including possible VSD repair, TVR, PVR, and single V CABG: Echo 01/04/18 showed normal LVEF, no residual VSD. normal TV prosthesis function. hx of pulmonary embolism and atrial fibrillation: Warfarin on hold with upcoming procedure e. Problem Qualifiers (1) Sepsis: Qualified Codes: A41.9 - Sepsis, unspecified organism Chaparro Leonardo Jan 07, 2018 08:28
[2018-01-07 08:50] LABS: BICARBONATE 30.7 MEQ/L (21.0-32.0); CALCIUM 8.5 MG/DL (8.5-10.1); CREATININE 0.6 MG/DL (0.60-1.30)
[2018-01-07] MEDS: MORPHINE SULFATE 2 MG/ML SYRINGE IV PUSH PRN (09:40)
--- NOTE | 2018-01-07 10:33 | HHI.PR ---
Subjective Remarks still focused on left hip pain Objective Vitals heart reg lung cta abd s/nt ext no edema Vital Signs Date Time Temp Pulse Resp B/P (MAP) Pulse Ox O2 Delivery O2 Flow Rate FiO2 01/07/18 09:33 84 01/07/18 04:00 98.7 86 18 160/73 (102) 96 01/07/18 00:00 98.0 82 18 130/72 (91) 97 01/06/18 20:00 98.1 87 18 134/73 (93) 96 01/06/18 16:00 97.9 84 16 151/74 (99) 98 01/06/18 12:00 97.3 83 18 161/73 (102) 99 01/06/18 11:42 97.1 81 20 129/72 (91) 100 01/06/18 11:42 100 Nasal Cannula 4 01/07/18 01/07/18 01/08/18 15:00 23:00 07:00 Intake Total 100 ml Balance 100 ml IV Total 100 ml # Voids 3 Result Diagram: 01/06/1817 01/07/18 0736 Imaging Last Impressions Hip MRI 01/05/18 0000 Signed Impressions: Service Date/Time: Friday, January 05, 2018 09:07 - CONCLUSION: Probable hematoma as above. There is no joint effusion. There is loss myelitis. Correlation is suggested. Wisam Bray MD FACR Lumbar Spine CT 01/03/18 0000 Signed Impressions: Service Date/Time: Wednesday, January 03, 2018 22:13 - CONCLUSION: 1. Multiple disc bulges in the lower lumbar spine with mild encroachment on the lateral recesses and neural foramina. No acute fracture. Mild scoliosis. Mild degenerative disc disease. Mani Robison MD Chest X-Ray 01/03/18 0000 Signed Impressions: Service Date/Time: Wednesday, January 03, 2018 20:06 - CONCLUSION: 1. Cardiomegaly. No acute findings. Mani Robison MD Abdomen/Pelvis CT 01/03/18 0000 Signed Impressions: Service Date/Time: Wednesday, January 03, 2018 22:13 - CONCLUSION: 1. Probable left hip joint effusion with some inflammatory or edematous changes in the musculature around the anterior left hip. Would be better evaluated with MRI. 2. No acute findings within the abdomen and pelvis. Multiple calcified gallstones. Small hiatal hernia. 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 Tricuspid and pulmonary valves - echocardiogram (01/05/18). Hyperdynamic LV. EF 65-70%. No overt endocarditis identified. - Blood Culture (01/03/18) --> MSSA 12/25 bottles - UA (01/03) no culture indicated - CXR (01/03) Cardiomegaly. No acute findings CT abdomen pelvis (01/03) 1. Probable left hip joint effusion with some inflammatory or edematous changes in the musculature around the anterior left hip. Would be better evaluated with MRI. 2. No acute findings within the abdomen and pelvis. Multiple calcified gallstones. Small hiatal hernia. MRI Left Hip (01/05) probable hematoma at obturator internus and obturator externus. NO joint effusion - Vancomycin (01/03 - 01/04) - Cefepime (01/04) - Cefazolin (01/04 - present) - Case d/w Infectious Disease, Dr. Carrillo, (01/04). - Case d/w Cardiology, Dr. Nj (01/04). - Pt will need LEÓN - Cardiology requesting EGD prior to LEÓN - Pt seen by Gastroenterology. EGD (01/06). mild gastritis and esophagitis. no varices IR for aspiration of fluid in left hip area today to look for seeding of the infection. LEÓN tomorrow to evaluate for endocarditis cont abx per ID. repeat blood cx on 01/05 still positive. cefazolin/gent/rifampin adjust prn pain medications. (2) Alcohol withdrawal ICD Codes: F10.239 - Alcohol dependence with withdrawal, unspecified Status: Acute Plan: Scheduled Librium taper CIWA protocol (3) Hyponatremia ICD Codes: E87.1 - Hypo-osmolality and hyponatremia Status: Acute Plan: Patient does have ETOH abuse Na on admission 120 -> (01/04) 0319 130 -> (01/04) 1000 130, 132 (01/05) - (4) DM (diabetes mellitus) ICD Codes: E11.9 - Type 2 diabetes mellitus without complications Status: Chronic Plan: Diabetic diet - HgA1C 5.9 (12/04/17) - Accu checks ACHS with SSI coverage (5) Pulmonary embolism ICD Codes: I26.99 - Other pulmonary embolism without acute cor pulmonale Status: Chronic Plan: - prosthetic cardiac valves with post op PE - unclear if pt actually had PE. Could NOT find documentation for pulmonary embolism. - However per [facility] records pt did have a thrombus on porcine valve following porcine valve placement in 2016. - Initial INR 1.5 upon [place] admission. do not believe that patient has been taking Coumadin as prescribed - coumadin on hold for possible procedures - repeat INR in AM (6) Hepatitis C, chronic ICD Codes: B18.2 - Chronic viral hepatitis C Status: Chronic Plan: - Pt has had a few visits with Dr. Jamal Mixon - Pt has NOT yet started treatment for Hep C. Problem Qualifiers (1) Sepsis: Qualified Codes: A41.9 - Sepsis, unspecified organism (2) Alcohol withdrawal: Qualified Codes: F10.230 - Alcohol dependence with withdrawal, uncomplicated (3) DM (diabetes mellitus): Qualified Codes: E11.8 - Type 2 diabetes mellitus with unspecified complications; Z79.4 - intermodal owner operator truck driver (current) use of insulin (4) Hepatitis C, chronic: Qualified Codes: B18.2 - Chronic viral hepatitis C Lio Dailey MD Jan 07, 2018 10:33
--- NOTE | 2018-01-07 13:15 | HHI.GIFU ---
Subjective Remarks Pt resting in bed, mother at bedside. He offers no complaints but abd is mildly tender on exam. (Chloe Lujan) Objective Vitals I&O Vital Signs Date Time Temp Pulse Resp B/P (MAP) Pulse Ox O2 Delivery O2 Flow Rate FiO2 01/07/18 12:55 83 01/07/18 09:33 84 01/07/18 08:00 98.6 85 18 133/63 (86) 95 01/07/18 04:00 98.7 86 18 160/73 (102) 96 01/07/18 00:00 98.0 82 18 130/72 (91) 97 01/06/18 20:00 98.1 87 18 134/73 (93) 96 01/06/18 16:00 97.9 84 16 151/74 (99) 98 I/O 01/06/18 01/06/18 01/06/18 01/07/18 01/07/18 01/07/18 07:00 15:00 23:00 07:00 15:00 23:00 Intake Total 150 ml 100 ml Output Total 900 ml 800 ml Balance -750 ml -800 ml 100 ml IV Total 50 ml 100 ml Other 100 ml Output Urine Total 900 ml 800 ml # Voids 2 3 Laboratory Laboratory Tests Test 01/07/18 07:36 Prothrombin Time 12.4 Prothromb Time International Ratio 1.2 Blood Urea Nitrogen 12 Creatinine 0.60 Random Glucose 243 Calcium Level 8.5 Sodium Level 133 Potassium Level 4.9 Chloride Level 97 Carbon Dioxide Level 30.7 Anion Gap 5 Estimat Glomerular Filtration Rate 141 Date/Time Source Procedure Growth Status 01/05/18 18:46 Blood Peripheral Aerobic Blood Culture - Final Staphylococcus Aureus Complete 01/05/18 18:46 Anaerobic Blood Culture - Final Staphylococcus Aureus Complete 01/03/18 20:15 Nasal Washing Influenza Types A,B Antigen (CHELSI) - Final NEGATIVE FOR FLU A AND B ANTIGEN.... Complete Imaging Last Impressions Hip MRI 01/05/18 0000 Signed Impressions: Service Date/Time: Friday, January 05, 2018 09:07 - CONCLUSION: Probable hematoma as above. There is no joint effusion. There is loss myelitis. Correlation is suggested. Wisam Bray MD FACR Lumbar Spine CT 01/03/18 0000 Signed Impressions: Service Date/Time: Wednesday, January 03, 2018 22:13 - CONCLUSION: 1. Multiple disc bulges in the lower lumbar spine with mild encroachment on the lateral recesses and neural foramina. No acute fracture. Mild scoliosis. Mild degenerative disc disease. Mani Robiosn MD Chest X-Ray 01/03/18 0000 Signed Impressions: Service Date/Time: Wednesday, January 03, 2018 20:06 - CONCLUSION: 1. Cardiomegaly. No acute findings. Mani Robison MD Abdomen/Pelvis CT 01/03/18 0000 Signed Impressions: Service Date/Time: Wednesday, January 03, 2018 22:13 - CONCLUSION: 1. Probable left hip joint effusion with some inflammatory or edematous changes in the musculature around the anterior left hip. Would be better evaluated with MRI. 2. No acute findings within the abdomen and pelvis. Multiple calcified gallstones. Small hiatal hernia. Mani Robison MD Physical Exam HEENT: PERRL; normocephalic; atraumatic; no jaundice. CHEST: CTA CARDIAC: RRR ABDOMEN: Soft, nondistended,diffuse TTP; no hepatosplenomegaly; bowel sounds are present in all four quadrants. EXTREMITIES: No clubbing, cyanosis, or edema. SKIN: jason; no rash; no jaundice. MARKETING EDITOR: mildly lethargic (Chloe Lujan) Assessment and Plan Plan - Sepsis, 12/25 positive Bcx Gram positive cocci, source to be determined- GI consult requested by cardiology for evaluation prior to having LEÓN done. Pt denies nausea, vomiting, abd pain, diarrhea, hematochezia or melena. - Alcohol abuse- counselled - Hx of hep-C- op eval - PE, atrial fibrillation on Coumadin, - Hx of tetralogy of flow repaired as a infant he continues to [facility] with [facility], prosthetic pulmonary and Tricuspid cardiac valves with post op PE, atrial fibrillation on Coumadin, CAD s/p cardiac stent and CABG, hypertension, DM, per attending 01/07/18 mild TTP abd. s/p pEGD showed gastritis, esophagitis . bx pending. cleared for LEÓN Plan: - cleared for LEÓN - 40mg protonix daily - GEM - await bx - f/u with GI after d/c - Alcohol cessation gi will sign off. please reconsult if needed pt seen by myself and Dr Hancock and this note is on her behalf (Chloe Lujan) Chloe Lujan Jan 07, 2018 13:15 Neida Hancock MD Jan 07, 2018 15:05
[2018-01-07] MEDS ORDERED: PANTOPRAZOLE SOD 40 MG DELAYED RELEASE TAB PO ONE (14:00)
[2018-01-07] MEDS ORDERED: SODIUM CHLORIDE 0.9% INJ 10 ML ONE (14:21)
[2018-01-07] MEDS: 1/2 NS + KCL 20 MEQ INJ 1,000 ML IV SCH (15:09)
[2018-01-07] MEDS ORDERED: [UNRECOGNIZED DRUG - OTHER] ONE (16:45)
[2018-01-07] MEDS: MORPHINE SULFATE 4 MG/ML INJ IV PUSH PRN (16:49)
[2018-01-07] MEDS ORDERED: [UNRECOGNIZED DRUG - OTHER] ONE (18:00)
[2018-01-07 19:03] LABS: WBC, SYNOVIAL FLUID 1 /MM3 (0-200)
[2018-01-07] MEDS: TEMAZEPAM 15 MG CAP PO PRN (23:51)
[2018-01-08] VITALS: BP 138/80; PULSE 80; RESP 18; TEMP 98; O2SAT 98
[2018-01-08] MEDS: SODIUM CHLORIDE 0.9% IV SCH ×3 (01:32→17:03)
[2018-01-08] MEDS: GENTAMICIN IV SCH ×3 (01:32→17:03)
[2018-01-08 04:00] VITALS: BP 140/88; PULSE 76; RESP 19; TEMP 98.3; O2SAT 96
[2018-01-08] MEDS: ceFAZolin 2 GM PREMIX 50 ML IV SCH ×3 (06:03→20:32)
[2018-01-08 07:47] LABS: INTERNATIONAL NORMALIZED RATIO 1.3 RATIO; PROTHROMBIN TIME - PATIENT 12.9 SEC (9.8-11.6)
[2018-01-08] MEDS: LOSARTAN 50 MG TAB PO SCH (07:56)
[2018-01-08] MEDS: chlordiazePOXIDE 25 MG CAP PO SCH ×2 (07:57→20:32)
[2018-01-08] MEDS: FLUoxetine HCL 20 MG CAP PO SCH (07:57)
[2018-01-08] MEDS: DIGOXIN 0.25 MG TAB PO SCH (07:57)
[2018-01-08] MEDS: RIFAMPIN 150 MG CAP PO SCH ×2 (07:57→20:31)
[2018-01-08] MEDS: ASPIRIN EC 81 MG TABEC PO SCH (07:57)
[2018-01-08] MEDS: INSULIN ASPART SUPPLEMENTAL SCALE SQ SCH ×4 (07:58→20:31)
[2018-01-08] MEDS: PRAVASTATIN SOD 40 MG TAB PO SCH (07:58)
--- NOTE | 2018-01-08 08:26 | PD.CARD.PN ---
Subjective Subjective Remarks Complains of dry cough with no chest pain or shortness of breath. Denies any fevers. Going for LEÓN later today. Objective Medications Current Medications Medications (Trade) Dose Ordered Sig/Shantal Route Start Time Stop Time Status Last Admin (Romazicon Inj) 0.2 mg Q1M PRN IV PUSH 01/03/18 23:15 (Ativan) 1 mg Q4H PRN PO 01/03/18 23:15 01/04/18 17:35 (Ativan Inj) 1 mg Q4H PRN IV PUSH 01/03/18 23:15 01/05/18 08:52 (Ativan) 2 mg Q2H PRN PO 01/03/18 23:15 01/03/18 23:50 (Ativan Inj) 2 mg Q2H PRN IV PUSH 01/03/18 23:15 (Ativan Inj) 2 mg Q1H PRN IV PUSH 01/03/18 23:15 (Ativan Inj) 2 mg Q15M PRN IV PUSH 01/03/18 23:15 (Zofran Inj) 4 mg Q6HR PRN IV PUSH 01/03/18 23:15 (Tylenol) 500 mg Q6H PRN PO 01/03/18 23:30 01/04/18 02:18 Potassium Chloride/Sodium Chloride 1,000 ml @ 50 mls/hr Q20H IV 01/04/18 09:30 01/07/18 15:09 (Ecotrin Ec) 81 mg DAILY PO 01/05/18 09:00 01/08/18 07:57 (Lanoxin) 0.25 mg DAILY PO 01/05/18 09:00 01/08/18 07:57 (PROzac) 60 mg DAILY PO 01/05/18 09:00 01/08/18 07:57 (Cozaar) 100 mg DAILY PO 01/05/18 09:00 01/08/18 07:56 (Pravachol) 40 mg DAILY PO 01/05/18 09:00 01/08/18 07:58 (D50w (Vial) Inj) 50 ml UNSCH PRN IV PUSH 01/04/18 13:30 (Glucagon Inj) 1 mg UNSCH PRN OTHER 01/04/18 13:30 (NovoLOG SUPPLEMENTAL SCALE) 1 ACHS SLIDING SCALE SQ 01/04/18 17:00 01/08/18 07:58 Cefazolin Sodium/ Dextrose 50 ml @ 150 mls/hr Q8HR IV 01/04/18 22:00 01/08/18 06:03 (Restoril) 15 mg HS PRN PO 01/04/18 23:45 01/07/18 23:51 (Hooper 5-325 Mg) 1 tab Q6H PRN PO 01/05/18 12:45 (Hooper 10-325 Mg) 1 tab Q6H PRN PO 01/05/18 12:45 01/07/18 15:08 Lactated Ringer's 1,000 ml @ 30 mls/hr Q24H PRN IV 01/05/18 19:15 01/08/18 19:14 Sodium Chloride 500 ml @ 30 mls/hr [id number] PRN IV 01/05/18 19:15 01/08/18 19:14 (Lopressor) 25 mg [employer]HALT ROLLER PERSON PRN PO 01/05/18 19:15 01/08/18 19:14 (Betadine 5% Antisepsis Kit) 1 applic [employer] PERSON PRN EACH NARE 01/05/18 19:15 01/08/18 19:14 (Chlorhexidine 2% Cloth) 3 pack [employer] PERSON PRN TOPICAL 01/05/18 19:15 01/08/18 19:14 (NovoLIN R INJ) See Protocol Table ... [employer]HALT ROLL[employer] PERSON PRN SQ 01/05/18 19:15 01/08/18 19:14 Pharmacy Profile Note 0 ml @ 0 mls/hr UNSCH OTHER 01/06/18 14:30 (Rifampin) 300 mg Q12HR PO 01/06/18 21:00 01/08/18 07:57 Gentamicin Sulfate 95 mg/ Sodium Chloride 102.375 ml @ 200 mls/ hr Q8H IV 01/06/18 17:00 01/08/18 07:58 (Librium) 25 mg BID PO 01/07/18 21:00 01/08/18 07:57 (Morphine Inj) 4 mg Q3H PRN IV PUSH 01/07/18 10:30 01/07/18 16:49 Miscellaneous Information SPECIFIC LAB TO BE DRAWN:GENTAMICIN TROUGH DATE TO... ONCE ONCE .XX 01/08/18 16:45 01/08/18 16:46 Miscellaneous Information SPECIFIC LAB TO BE DRAWN:GENTAMICIN PEAK DATE TO... ONCE ONCE .XX 01/08/18 18:00 01/08/18 18:01 Vital Signs / I&O Vital Signs Date Time Temp Pulse Resp B/P (MAP) Pulse Ox O2 Delivery O2 Flow Rate FiO2 01/08/18 04:00 98.3 76 19 140/88 (105) 96 01/08/18 00:00 98.0 80 18 138/80 (99) 98 01/07/18 20:00 97.7 87 17 140/70 (93) 97 01/07/18 17:58 83 01/07/18 16:00 98.1 83 22 152/75 (100) 94 01/07/18 12:55 83 01/07/18 12:00 98.6 82 19 164/76 (105) 94 01/07/18 09:33 84 I/O 01/07/18 01/07/18 01/07/18 01/08/18 01/08/18 01/08/18 07:00 15:00 23:00 07:00 15:00 23:00 Intake Total 100 ml 1050 ml 700 ml Output Total 800 ml 800 ml Balance -800 ml 100 ml 250 ml 700 ml Intake Oral 600 ml 650 ml IV Total 100 ml 450 ml 50 ml Output Urine Total 800 ml 800 ml # Voids 3 2 # Bowel Movements 0 0 Physical Exam GENERAL: Well-developed well-nourished. In no acute distress. NECK: No carotid bruits. No JVD. CARDIOVASCULAR: Regular rate and rhythm. 2/6 holosystolic murmur appreciated at left sternal border. RESPIRATORY: No accessory muscle use. Clear to auscultation. Breath sounds equal bilaterally. MUSCULOSKELETAL: No clubbing or cyanosis. No edema. NEUROLOGICAL: Awake and alert. Normal speech. Laboratory Laboratory Tests Test 01/07/18 14:24 01/07/18 16:43 01/07/18 18:15 01/08/18 06:55 Synovial Fluid Color RED Synovial Fluid Appearance BLOODY Synovial Fluid WBC 1 /MM3 Synovial Fluid RBC 4435 /MM3 Synovial Fluid Neutrophils 82 % Synovial Fluid Lymphocytes 6 % Synovial Fluid Eosinophils 12 % Gentamicin Level Trough 0.3 MCG/ML Gentamicin Level Peak 7.1 MCG/ML Prothrombin Time 12.9 SEC Prothromb Time International Ratio 1.3 RATIO Imaging Last Impressions Hip MRI 4/15/18 0000 Signed Impressions: Service Date/Time: Friday, January 05, 2018 09:07 - CONCLUSION: Probable hematoma as above. There is no joint effusion. There is loss myelitis. Correlation is suggested. Wisam Bray MD FACR Lumbar Spine CT 01/03/18 Signed Impressions: Service Date/Time: Wednesday, January 03, 2018 22:13 - CONCLUSION: 1. Multiple disc bulges in the lower lumbar spine with mild encroachment on the lateral recesses and neural foramina. No acute fracture. Mild scoliosis. Mild degenerative disc disease. Mani Robison MD Chest X-Ray 01/03/18 Signed Impressions: Service Date/Time: Wednesday, January 03, 2018 20:06 - CONCLUSION: 1. Cardiomegaly. No acute findings. Mani Robison MD Abdomen/Pelvis CT 01/03/18 Signed Impressions: Service Date/Time: Wednesday, January 03, 2018 22:13 - CONCLUSION: 1. Probable left hip joint effusion with some inflammatory or edematous changes in the musculature around the anterior left hip. Would be better evaluated with MRI. 2. No acute findings within the abdomen and pelvis. Multiple calcified gallstones. Small hiatal hernia. Mani Robison MD Assessment and Plan Problem List: (1) ToF-PA (tetralogy of Fallot, pulmonary atresia, and VSD) ICD Codes: Q21.3 - Tetralogy of Fallot (2) S/P TOF (tetralogy of Fallot) repair ICD Codes: Z98.890 - Other specified postprocedural states; Z87.74 - Personal history of (corrected) congenital malformations of heart and circulatory system (3) Sepsis ICD Codes: A41.9 - Sepsis, unspecified organism Status: Acute (4) CAD (coronary artery disease) ICD Codes: I25.10 - Atherosclerotic heart disease of [place] coronary artery without angina pectoris Status: Chronic (5) HTN (hypertension) ICD Codes: I10 - Essential (primary) hypertension Status: Chronic (6) Pulmonary embolism ICD Codes: I26.99 - Other pulmonary embolism without acute cor pulmonale Status: Chronic (7) Hepatitis C ICD Codes: B19.20 - Unspecified viral hepatitis C without hepatic coma Status: Chronic Assessment and Plan This is a 52-year-old man, admitted for left hip pain, found to have MSSA bacteremia. Bacteremia, 12/25 positive Bcx Gram positive cocci, source to be determined: Left hip effusion, currently consistent with hematoma, cultures pending Echocardiogram 01/03/14 showed no obvious vegetation, LEÓN requested, planning for LEÓN today ID consulted, antibiotics per ID Alcohol dependence: Reportedly drinks 2-4 beers daily. GI performed EGD 01/06, cleared for LEÓN. hx of Congenital heart disease, s/p TOF repair, including possible VSD repair, TVR, PVR, and single V CABG: Echo 01/04/18 showed normal LVEF, no residual VSD. normal TV prosthesis function. hx of pulmonary embolism and atrial fibrillation: Warfarin on hold with procedures and hip hematoma. Problem Qualifiers (1) Sepsis: Qualified Codes: A41.9 - Sepsis, unspecified organism Chaparro Leonardo Jan 08, 2018 08:26
[2018-01-08 08:30] VITALS: BP 168/78; PULSE 85; RESP 20; TEMP 98.2; O2SAT 97
--- NOTE | 2018-01-08 09:42 | RADRPT ---
EXAM DATE/TIME: 01/07/2018 13:16 [place] COMPARISON: No previous studies available for comparison. INDICATIONS : Patient with history of left hip pain in need of aspiration. MEDICAL HISTORY : CAD, HTN, Hepatitis C, Diabetes, HLD, ETOH abuse SURGICAL HISTORY : CABG, Prosthetic pulmonary and tricuspid cardiac valves, Cardiac stent ENCOUNTER: Initial ACUITY: 1 week PAIN SCORE: 7/10 LOCATION: Left Hip FLUORO TIME: 0.43 minutes IMAGE SERIES: 1 DEVICE(S): 22 gauge needle was placed into the left hip joint. RESPONSE: Pre procedure pain level was 7/10 Post procedure pain level was 7/10 FLUID: Total volume of1 cc of clear red fluid was removed. Fluid specimen was submitted to the lab for evaluation. PROCEDURE : 1. Fluoroscopically guided left hip aspiration. The risks, benefits and alternatives to the procedure were explained and verbal and written consent w as obtained. The site was prepped in sterile fashion. Full sterile technique was used, including ca p, mask, sterile gloves and gown and a large sterile sheet. Hand hygiene and 2% chlorhexidine and/or betadine/alcohol prep was utilized per protocol for cutaneous antisepsis. The skin and subcutaneous tissues were infiltrated with local anesthetic solution. 22 gauge spinal needle was advanced into the left hip joint. Multiple aspiration attempts did not yie ld any fluid. Therefore, the joint was irrigated with no bacteria static saline and approximately 1 c c of minimally serosanguineous fluid was removed and submitted for laboratory analysis per request. The patient tolerated the procedure well and there were no complications. CONCLUSION: Uncomplicated aspiration as above. Lázaro Yoo MD on January 08, 2018 at 9:39 Board Certified Radiologist. This report was verified electronically.
--- NOTE | 2018-01-08 10:22 | HHI.PR ---
Subjective Remarks pt seemed a little confused this morning thought everyone in hallway was packing up to leave I was able to reorient him says hip feels better Objective Vitals mild disorientation. I was able to reorient him heart reg lung cta abd s/nt ext no edema Vital Signs Date Time Temp Pulse Resp B/P (MAP) Pulse Ox O2 Delivery O2 Flow Rate FiO2 01/08/18 08:30 98.2 85 20 168/78 (108) 97 01/08/18 04:00 98.3 76 19 140/88 (105) 96 01/08/18 00:00 98.0 80 18 138/80 (99) 98 01/07/18 20:00 97.7 87 17 140/70 (93) 97 01/07/18 17:58 83 01/07/18 16:00 98.1 83 22 152/75 (100) 94 01/07/18 12:55 83 01/07/18 12:00 98.6 82 19 164/76 (105) 94 Result Diagram: 01/06/18 0917 01/07/18 0736 Imaging Last Impressions Hip MRI 01/05/18 0000 Signed Impressions: Service Date/Time: Friday, January 05, 2018 09:07 - CONCLUSION: Probable hematoma as above. There is no joint effusion. There is loss myelitis. Correlation is suggested. Wisam Bray MD FACR Lumbar Spine CT 01/03/18 0000 Signed Impressions: Service Date/Time: Wednesday, January 03, 2018 22:13 - CONCLUSION: 1. Multiple disc bulges in the lower lumbar spine with mild encroachment on the lateral recesses and neural foramina. No acute fracture. Mild scoliosis. Mild degenerative disc disease. Mani Robison MD Chest X-Ray 01/03/18 0000 Signed Impressions: Service Date/Time: Wednesday, January 03, 2018 20:06 - CONCLUSION: 1. Cardiomegaly. No acute findings. Mani Robison MD Abdomen/Pelvis CT 01/03/18 0000 Signed Impressions: Service Date/Time: Wednesday, January 03, 2018 22:13 - CONCLUSION: 1. Probable left hip joint effusion with some inflammatory or edematous changes in the musculature around the anterior left hip. Would be better evaluated with MRI. 2. No acute findings within the abdomen and pelvis. Multiple calcified gallstones. Small hiatal hernia. 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 Tricuspid and pulmonary valves - echocardiogram (01/05/18). Hyperdynamic LV. EF 65-70%. No overt endocarditis identified. - Blood Culture (01/03/18) --> MSSA 12/25 bottles - UA (01/03) no culture indicated - CXR (01/03) Cardiomegaly. No acute findings CT abdomen pelvis (01/03) 1. Probable left hip joint effusion with some inflammatory or edematous changes in the musculature around the anterior left hip. Would be better evaluated with MRI. 2. No acute findings within the abdomen and pelvis. Multiple calcified gallstones. Small hiatal hernia. MRI Left Hip (01/05) probable hematoma at obturator internus and obturator externus. NO joint effusion - Vancomycin (01/03 - 01/04) - Cefepime (01/04) - Cefazolin (01/04 - present) - Case d/w Infectious Disease, Dr. Carrillo, (01/04). - Case d/w Cardiology, Dr. Nj (01/04). - Pt will need LEÓN - Cardiology requesting EGD prior to LEÓN - Pt seen by Gastroenterology. EGD (01/06). mild gastritis and esophagitis. no varices IR for aspiration of fluid in left hip musculature on 01/07..gs/cx pending LEÓN today to evaluate for endocarditis cont abx per ID. repeat blood cx on 01/05 still positive. repeat blood cx taken on 01/08 cefazolin/gent/rifampin adjust prn pain medications. monitor for confusion. might need to adjust or discontinue some medications. (2) Alcohol withdrawal ICD Codes: F10.239 - Alcohol dependence with withdrawal, unspecified Status: Acute Plan: Scheduled Librium taper CIWA protocol (3) Hyponatremia ICD Codes: E87.1 - Hypo-osmolality and hyponatremia Status: Acute Plan: Patient does have ETOH abuse Na on admission 120 -> (01/04) 0319 130 -> (01/04) 1000 130, 132 (01/05) - (4) DM (diabetes mellitus) ICD Codes: E11.9 - Type 2 diabetes mellitus without complications Status: Chronic Plan: Diabetic diet - HgA1C 5.9 (12/04/17) - Accu checks ACHS with SSI coverage (5) Pulmonary embolism ICD Codes: I26.99 - Other pulmonary embolism without acute cor pulmonale Status: Chronic Plan: - prosthetic cardiac valves with post op PE - unclear if pt actually had PE. Could NOT find documentation for pulmonary embolism. - However per [place] records pt did have a thrombus on porcine valve following porcine valve placement in 2016. - Initial INR 1.5 upon [facility] admission. do not believe that patient has been taking Coumadin as prescribed - coumadin on hold for procedures (6) Hepatitis C, chronic ICD Codes: B18.2 - Chronic viral hepatitis C Status: Chronic Plan: - Pt has had a few visits with Dr. Jamal Mixon - Pt has NOT yet started treatment for Hep C. 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
[2018-01-08 11:11] VITALS: PULSE 85
[2018-01-08] MEDS ORDERED: NURSING INFORMATION XX PRN (13:00)
--- NOTE | 2018-01-08 13:05 | ECHRPT ---
Indication: ENDOCARDITIS CONCLUSIONS Normal left ventricular size. Mild concentric left ventricular hypertrophy. The left ventricular systolic function is low normal with an estimated ejection fraction in the rang e of 50- 55%. The right ventricle was not well visualized. The right ventricle is mildly dilated. The right ventricular systoilc function is mildly decreased. The right atrial size is mildly dilated. Mild thickening of the mitral valve leaflets. Trace mitral valve regurgitation. No mitral valve stenosis. Trileaflet aortic valve. Diffuse calcification of the aortic valve. No aortic valve regurgitation. No aortic valve stenosis. Moderately restricted movement of right and noncoronary cusps. There is mild tricuspid valve regurgitation. No tricuspid valve stenosis. Bioprosthetic tircuspid v alve. The pulmonary valve is not well visualized. No pulmonary valve regurgitation. Pulmonary valve prosth esis not well visualized. No vegetations visualized. BP: / HR: Rhythm: Technical Quality: Medications Complications Proc. Components The patient was brought to the diagnostic imaging area in a fasting state after o btaining an informed consent. The patient was premedicated with IV Versed and IV Fentanyl. The women's lacrosse coach ior pharynx was sprayed with Cetacaine spray and the patient was administered viscous Xylocaine 2 %. The LEÓN probe was passed into the posterior pharynx , mid-esophagus, distal esophagus, and gastric fundus. LEÓN was performed at multiple levels. The patient tolerated the procedure well and there were no complications. The patient was transferred to the floor in satisfactory condition.. FINDINGS LEFT VENTRICLE Normal left ventricular size. Mild concentric left ventricular hypertrophy. The left ventricular systolic function is low normal with an estimated ejection fraction in the rang e of 50- 55%. RIGHT VENTRICLE The right ventricle was not well visualized. The right ventricle is mildly dilated. The right ventricular systoilc function is mildly decreased. LEFT ATRIUM The left atrial size is upper limits of normal. RIGHT ATRIUM The right atrial size is mildly dilated. ATRIAL APPENDAGES Normal left atrial appendage size with no evidence of thrombus formation. ATRIAL SEPTUM Normal atrial septal thickness without atrial level shunting by limited color doppler interrogation. AORTA The aortic root and proximal ascending aorta are normal in size on limited imaging. MITRAL VALVE Mild thickening of the mitral valve leaflets. Trace mitral valve regurgitation. No mitral valve stenosis. AORTIC VALVE Trileaflet aortic valve. Diffuse calcification of the aortic valve. No aortic valve regurgitation. No aortic valve stenosis. Moderately restricted movement of right and noncoronary cusps. TRICUSPID VALVE There is mild tricuspid valve regurgitation. No tricuspid valve stenosis. Bioprosthetic tircuspid v alve. VESSELS The inferior vena cava is normal in size. PULMONARY VALVE The pulmonary valve is not well visualized. No pulmonary valve regurgitation. Pulmonary valve prosth esis not well visualized. Jose Temple MD, FACC (Electronically Signed) Final Date:08 January 2018 13:04
[2018-01-08] MEDS: 1/2 NS + KCL 20 MEQ INJ 1,000 ML IV SCH (13:30)
--- NOTE | 2018-01-08 15:11 | HHI.IDPN ---
Subjective Subjective Remarks on going bacteremia, high grade MSSA S gent/rif SP EGD: esophagitis LEÓN negative: dw Dr Temple denies any back, neck dotty Antibiotics cefazoline gent rif Allergies: Coded Allergies: penicillin G (Unverified Allergy, Mild, 01/03/18) Objective . Vital Signs Date Time Temp Pulse Resp B/P (MAP) Pulse Ox O2 Delivery O2 Flow Rate FiO2 01/08/18 11:11 85 01/08/18 08:30 98.2 85 20 168/78 (108) 97 01/08/18 04:00 98.3 76 19 140/88 (105) 96 01/08/18 00:00 98.0 80 18 138/80 (99) 98 01/07/18 20:00 97.7 87 17 140/70 (93) 97 01/07/18 17:58 83 01/07/18 16:00 98.1 83 22 152/75 (100) 94 . Laboratory Tests Test 01/07/18 07:36 Blood Urea Nitrogen 12 MG/DL Creatinine 0.60 MG/DL Random Glucose 243 MG/DL Calcium Level 8.5 MG/DL Sodium Level 133 MEQ/L Potassium Level 4.9 MEQ/L Chloride Level 97 MEQ/L Carbon Dioxide Level 30.7 MEQ/L Anion Gap 5 MEQ/L Estimat Glomerular Filtration Rate 141 ML/MIN Microbiology Date/Time Source Procedure Growth Status 01/08/18 07:03 Blood Peripheral Aerobic Blood Culture Pending Received 01/08/18 07:03 Blood Peripheral Anaerobic Blood Culture Pending Received 01/08/18 06:55 Blood Peripheral Aerobic Blood Culture Pending Received 01/08/18 06:55 Blood Peripheral Anaerobic Blood Culture Pending Received 01/05/18 18:46 Blood Peripheral Aerobic Blood Culture - Final Staphylococcus Aureus Complete 01/05/18 18:46 Anaerobic Blood Culture - Final Staphylococcus Aureus Complete 01/05/18 18:40 Blood Peripheral Aerobic Blood Culture - Final Staphylococcus Aureus Complete 01/05/18 18:40 Anaerobic Blood Culture - Final Staphylococcus Aureus Complete 01/07/18 14:24 Fluid Synovial Fluid Gram Stain - Final Resulted 01/07/18 14:24 Fluid Synovial Fluid Body Fluid Culture - Preliminary NO GROWTH IN 24 HOURS. Resulted Imaging Last Impressions Hip Aspiration/Injection 01/07/18 0000 Signed Impressions: Service Date/Time: Sunday, January 07, 2018 13:16 - CONCLUSION: Uncomplicated aspiration as above. Lázaro Bozorgmanesh, MD Hip MRI 01/05/18 0000 Signed Impressions: Service Date/Time: Friday, January 05, 2018 09:07 - CONCLUSION: Probable hematoma as above. There is no joint effusion. There is loss myelitis. Correlation is suggested. Wisam Bray MD FACR Lumbar Spine CT 01/03/18 0000 Signed Impressions: Service Date/Time: Wednesday, January 03, 2018 22:13 - CONCLUSION: 1. Multiple disc bulges in the lower lumbar spine with mild encroachment on the lateral recesses and neural foramina. No acute fracture. Mild scoliosis. Mild degenerative disc disease. Mani Robison MD Chest X-Ray 01/03/18 0000 Signed Impressions: Service Date/Time: Wednesday, January 03, 2018 20:06 - CONCLUSION: 1. Cardiomegaly. No acute findings. Mani Robison MD Abdomen/Pelvis CT 01/03/18 0000 Signed Impressions: Service Date/Time: Wednesday, January 03, 2018 22:13 - CONCLUSION: 1. Probable left hip joint effusion with some inflammatory or edematous changes in the musculature around the anterior left hip. Would be better evaluated with MRI. 2. No acute findings within the abdomen and pelvis. Multiple calcified gallstones. Small hiatal hernia. Mani Robison MD Physical Exam CONSTITUTIONAL/GENERAL: This is an adequately nourished patient, in no apparent distress. TUBES/LINES/DRAINS: SKIN: No jaundice, rashes, or lesions. Skin temperature appropriate. Not diaphoretic. NECK: Trachea midline. Supple, nontender. No palpable thyroid enlargement or nodularity. CARDIOVASCULAR: Regular rate and rhythm Holosystolic murmur 2-3 /6 peak at R upper sternal border ? S3 gallop, no rubs. No JVD. Peripheral pulses symmetric. Well healed median sternotomy scar RESPIRATORY/CHEST: Symmetric, unlabored respirations. Clear to auscultation. Breath sounds equal bilaterally. No wheezes, rales, or rhonchi. GASTROINTESTINAL: Abdomen soft, non-tender, nondistended. No hepato-splenomegaly , or palpable masses. No guarding. Bowel sounds present. GENITOURINARY: Without palpable bladder distension . MUSCULOSKELETAL: Extremities without clubbing, cyanosis, or edema. BACK: not tender tyo paklpatilmns NEUROLOGICAL: Awake and alert. Motor and sensory grossly within normal limits. Follows commands. Cognitively sharp. Moves all extremities. PSYCHIATRIC: No obvious anxiety/depression. no apparent hallucinations or other psychotic thought process. Assessment & Plan Remarks HIgh grade MSSA bactermeia in a pt with prosthetic valve - source PVE (prosthetic valve endocarditis) vs secondary bactremia 2/2 septic L hip LEÓN negative, but still can not totally exclude prosthetic valve infx as a source sp L hip fluid aspiration - doubt infx (1 WBC) cont cefazolin, gent/rifampin - will Rx full course for PVE if no other source confirmed Monitor [facility] Roula Carrillo MD Jan 08, 2018 15:11
[2018-01-08 15:41] VITALS: BP 165/79; PULSE 83; RESP 20; TEMP 98.4; O2SAT 98
[2018-01-08] MEDS ORDERED: PHARMACY ORDERED LAB ONE ×2 (16:45→18:00)
[2018-01-08] MEDS: TEMAZEPAM 15 MG CAP PO PRN (20:32)
[2018-01-08 20:45] VITALS: BP 147/68; PULSE 96; RESP 18; TEMP 97.4; O2SAT 97
[2018-01-09] VITALS (7 sets, daily range): BP systolic 132–169; BP diastolic 67–77; PULSE 79–94; RESP 19–20; TEMP 97.8–98.7; O2SAT 94–98
[2018-01-09] MEDS: SODIUM CHLORIDE 0.9% IV SCH ×2 (01:38→09:54)
[2018-01-09] MEDS: GENTAMICIN IV SCH ×2 (01:38→09:54)
[2018-01-09] MEDS: ACETAMINOPHEN/HYDROcodone 325 MG/10 MG TAB PO PRN ×3 (01:48→21:41)
[2018-01-09] MEDS: ceFAZolin 2 GM PREMIX 50 ML IV SCH ×3 (05:18→21:36)
[2018-01-09 09:42] LABS: INTERNATIONAL NORMALIZED RATIO 1.3 RATIO; PROTHROMBIN TIME - PATIENT 12.9 SEC (9.8-11.6)
--- NOTE | 2018-01-09 09:45 | HHI.PR ---
Subjective Remarks doing ok. Objective Vitals heart reg lung cta abd s/nt ext no edema Vital Signs Date Time Temp Pulse Resp B/P (MAP) Pulse Ox O2 Delivery O2 Flow Rate FiO2 01/09/18 08:08 98.1 87 20 165/77 (106) 96 01/09/18 05:15 97.9 80 20 132/69 (90) 98 01/09/18 00:20 98.7 89 19 140/67 (91) 96 01/08/18 20:45 97.4 96 18 147/68 (94) 97 01/08/18 15:41 98.4 83 20 165/79 (107) 98 01/08/18 11:11 85 Result Diagram: 01/06/18 0917 01/07/18 0736 Imaging Last Impressions Hip MRI 01/05/18 0000 Signed Impressions: Service Date/Time: Friday, January 05, 2018 09:07 - CONCLUSION: Probable hematoma as above. There is no joint effusion. There is loss myelitis. Correlation is suggested. Wisam Bray MD FACR Lumbar Spine CT 01/03/18 0000 Signed Impressions: Service Date/Time: Wednesday, January 03, 2018 22:13 - CONCLUSION: 1. Multiple disc bulges in the lower lumbar spine with mild encroachment on the lateral recesses and neural foramina. No acute fracture. Mild scoliosis. Mild degenerative disc disease. Mani Robison MD Chest X-Ray 01/03/18 0000 Signed Impressions: Service Date/Time: Wednesday, January 03, 2018 20:06 - CONCLUSION: 1. Cardiomegaly. No acute findings. Mani Robison MD Abdomen/Pelvis CT 01/03/18 0000 Signed Impressions: Service Date/Time: Wednesday, January 03, 2018 22:13 - CONCLUSION: 1. Probable left hip joint effusion with some inflammatory or edematous changes in the musculature around the anterior left hip. Would be better evaluated with MRI. 2. No acute findings within the abdomen and pelvis. Multiple calcified gallstones. Small hiatal hernia. 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 Tricuspid and pulmonary valves - echocardiogram (01/05/18). Hyperdynamic LV. EF 65-70%. No overt endocarditis identified. - CXR (01/03) Cardiomegaly. No acute findings CT abdomen pelvis (01/03) 1. Probable left hip joint effusion with some inflammatory or edematous changes in the musculature around the anterior left hip. Would be better evaluated with MRI. 2. No acute findings within the abdomen and pelvis. Multiple calcified gallstones. Small hiatal hernia. MRI Left Hip (01/05) probable hematoma at obturator internus and obturator externus. NO joint effusion - Pt seen by Gastroenterology. EGD (01/06). mild gastritis and esophagitis. no varices -IR for aspiration of fluid in left hip joint...not musculature on 01/07..ngtd -LEÓN 01/08..no obvious vegetations -Blood cx 01/03 mssa -Blood cx 01/05 mssa -Blood cx 01/08 pending - Vancomycin (01/03 - 01/04) - Cefepime (01/04) - cont cefazolin, gent, rifampin per ID - await neg blood cx x 3 days then picc line for 6week abx - ID considering tagged wbc scan (2) Alcohol withdrawal ICD Codes: F10.239 - Alcohol dependence with withdrawal, unspecified Status: Acute Plan: Scheduled Librium taper CIWA protocol (3) Hyponatremia ICD Codes: E87.1 - Hypo-osmolality and hyponatremia Status: Acute Plan: Patient does have ETOH abuse Na on admission 120 -> (01/04) 0319 130 -> (01/04) 1000 130, 132 (01/05) - (4) DM (diabetes mellitus) ICD Codes: E11.9 - Type 2 diabetes mellitus without complications Status: Chronic Plan: Diabetic diet - HgA1C 5.9 (12/04/17) - home meds on hold. not on formulary. add levemir and cont ssi. (5) Pulmonary embolism ICD Codes: I26.99 - Other pulmonary embolism without acute cor pulmonale Status: Chronic Plan: - prosthetic cardiac valves with post op PE - unclear if pt actually had PE. Could NOT find documentation for pulmonary embolism. - However per [place] [facility] records pt did have a thrombus on porcine valve following porcine valve placement in 2016. - Initial INR 1.5 upon [place] admission. do not believe that patient has been taking Coumadin as prescribed - coumadin on hold for procedures (6) Hepatitis C, chronic ICD Codes: B18.2 - Chronic viral hepatitis C Status: Chronic Plan: - Pt has had a few visits with Dr. Jamal Mixon - Pt has NOT yet started treatment for Hep C. Problem Qualifiers (1) Sepsis: Qualified Codes: A41.9 - Sepsis, unspecified organism (2) Alcohol withdrawal: Qualified Codes: F10.230 - Alcohol dependence with withdrawal, uncomplicated (3) DM (diabetes mellitus): Qualified Codes: E11.8 - Type 2 diabetes mellitus with unspecified complications; Z79.4 - intermediate (current) use of insulin (4) Hepatitis C, chronic: Qualified Codes: B18.2 - Chronic viral hepatitis C Lio Dailey MD Jan 09, 2018 09:45
[2018-01-09] MEDS: INSULIN ASPART SUPPLEMENTAL SCALE SQ SCH ×3 (09:53→21:36)
[2018-01-09] MEDS: DIGOXIN 0.25 MG TAB PO SCH (10:04)
[2018-01-09] MEDS: PRAVASTATIN SOD 40 MG TAB PO SCH (10:04)
[2018-01-09] MEDS: ASPIRIN EC 81 MG TABEC PO SCH (10:05)
[2018-01-09] MEDS: FLUoxetine HCL 20 MG CAP PO SCH (10:05)
[2018-01-09] MEDS: LOSARTAN 50 MG TAB PO SCH (10:06)
[2018-01-09] MEDS: RIFAMPIN 150 MG CAP PO SCH ×2 (10:06→21:21)
[2018-01-09] MEDS: chlordiazePOXIDE 25 MG CAP PO SCH ×2 (10:06→21:21)
[2018-01-09 10:11] LABS: BICARBONATE 28.5 MEQ/L (21.0-32.0); CALCIUM 8.7 MG/DL (8.5-10.1); CREATININE 0.53 MG/DL (0.60-1.30)
--- NOTE | 2018-01-09 13:16 | HHI.IDPN ---
Subjective Subjective Remarks ID Xcover for Dr. Carrillo Patient seen and examined by Dr. 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 Patient presented to [place] ED with complaints of worsening malaise and inability to ambulate due to not being able to put any weight on the left leg. Patient had been following repetitively at home. At presentation, patients fever was 101.2 and WBC 14K. Blood cultures were positive for GPC in pairs and clusters 4/[address] lumbar spine revealed DDD in the lumbar spine. CT abd/pelvis revealed probable left hip joint effusion with some inflammatory or edematous changes in the musculature around the anterior left hip. Follow up MRI of the hip revealed induration in the obturator internus and obturator externus, small amount of fluid within the muscle groups extending down the medial side of the leg involving abductor longus and brevis, probable hematoma, no joint effusion or osteo. Infectious disease consultation was requested for evaluation and management of bacteremia. Notes reviewed High grade MSSA Patient had CT guided aspiration 01/07 with multiple aspiration attempts but no fluid yielded, joint was irrigated and 1cc of serosanguineous fluid was removed. Fluid studies have shown no growth in 48hrs. Patient c/o of significant left hip pain. He is requesting something to help with the pain. He and his mother who is at the bedside c/o change in mentation, he "does not appear to be as quick and having memory problems". C/o hallucinating, seeing and hearing things that aren't there. denies any neck pain, headache, dizziness or vision changes He denies any fever denies any rash reports dysuria and states his girlfriend thought he had blood in the urine. reports soft stools afebrile, last WBC 01/06 WNL SP EGD: esophagitis LEÓN negative 01/08 repeat BCX with no growth x 1 day Antibiotics IV Gentamicin IV Cefazolin PO Rifampin Current Medications Medications (Trade) Dose Ordered Sig/Shantal Route Start Time Stop Time Status Last Admin (Romazicon Inj) 0.2 mg Q1M PRN IV PUSH 01/03/18 23:15 (Zofran Inj) 4 mg Q6HR PRN IV PUSH 01/03/18 23:15 (Tylenol) 500 mg Q6H PRN PO 01/03/18 23:30 01/04/18 02:18 (Ecotrin Ec) 81 mg DAILY PO 01/05/18 09:00 01/09/18 10:05 (Lanoxin) 0.25 mg DAILY PO 01/05/18 09:00 01/09/18 10:04 (PROzac) 60 mg DAILY PO 01/05/18 09:00 01/09/18 10:05 (Cozaar) 100 mg DAILY PO 01/05/18 09:00 01/09/18 10:06 (Pravachol) 40 mg DAILY PO 01/05/18 09:00 01/09/18 10:04 (D50w (Vial) Inj) 50 ml UNSCH PRN IV PUSH 01/04/18 13:30 (Glucagon Inj) 1 mg UNSCH PRN OTHER 01/04/18 13:30 Cefazolin Sodium/ Dextrose 50 ml @ 150 mls/hr Q8HR IV 01/04/18 22:00 01/09/18 05:18 (Restoril) 15 mg HS PRN PO 01/04/18 23:45 01/08/18 20:32 ([place] 5-325 Mg) 1 tab Q6H PRN PO 01/05/18 12:45 ([place] 10-325 Mg) 1 tab Q6H PRN PO 01/05/18 12:45 01/09/18 10:03 Pharmacy Profile Note 0 ml @ 0 mls/hr UNSCH OTHER 01/06/18 14:30 (Rifampin) 300 mg Q12HR PO 01/06/18 21:00 01/09/18 10:06 Gentamicin Sulfate 95 mg/ Sodium Chloride 102.375 ml @ 200 mls/ hr Q8H IV 01/06/18 17:00 01/09/18 09:54 (Librium) 25 mg BID PO 01/07/18 21:00 01/09/18 10:06 (Morphine Inj) 4 mg Q3H PRN IV PUSH 01/07/18 10:30 01/07/18 16:49 Miscellaneous Information 1 UNSCH PRN XX 01/08/18 13:00 01/11/18 12:59 (Levemir Inj) 5 units Q12HR SQ 01/09/18 21:00 (NovoLOG SUPPLEMENTAL SCALE) 1 ACHS SLIDING SCALE SQ 01/09/18 17:00 UNV Lines PIV with no e/o infection Past Medical History Chronic low back pain with radiculopathy Alcoholism Tetralogy of Fallot status post repair. s/p tricuspid and pulmonary valve replacement Hepatitis C Hypertension Diabetes (Gerda Miranda) Allergies: Coded Allergies: penicillin G (Unverified Allergy, Mild, 01/03/18) Objective . Vital Signs Date Time Temp Pulse Resp B/P (MAP) Pulse Ox O2 Delivery O2 Flow Rate FiO2 01/09/18 11:56 98.0 86 20 160/76 (104) 96 01/09/18 08:08 98.1 87 20 165/77 (106) 96 01/09/18 05:15 97.9 80 20 132/69 (90) 98 01/09/18 00:20 98.7 89 19 140/67 (91) 96 01/08/18 20:45 97.4 96 18 147/68 (94) 97 01/08/18 15:41 98.4 83 20 165/79 (107) 98 . Laboratory Tests Test 01/09/18 07:34 Blood Urea Nitrogen 8 MG/DL Creatinine 0.53 MG/DL Random Glucose 241 MG/DL Calcium Level 8.7 MG/DL Sodium Level 135 MEQ/L Potassium Level 4.4 MEQ/L Chloride Level 99 MEQ/L Carbon Dioxide Level 28.5 MEQ/L Anion Gap 8 MEQ/L Estimat Glomerular Filtration Rate 163 ML/MIN Microbiology Date/Time Source Procedure Growth Status 01/08/18 07:03 Blood Peripheral Aerobic Blood Culture - Preliminary NO GROWTH IN 1 DAY Resulted 01/08/18 07:03 Blood Peripheral Anaerobic Blood Culture - Preliminary NO GROWTH IN 1 DAY Resulted 01/08/18 06:55 Blood Peripheral Aerobic Blood Culture - Preliminary NO GROWTH IN 1 DAY Resulted 01/08/18 06:55 Blood Peripheral Anaerobic Blood Culture - Preliminary NO GROWTH IN 1 DAY Resulted 01/07/18 14:24 Fluid Synovial Fluid Gram Stain - Final Resulted 01/07/18 14:24 Fluid Synovial Fluid Body Fluid Culture - Preliminary NO GROWTH IN 48 HOURS. Resulted Imaging Last Impressions Hip Aspiration/Injection 01/07/18 0000 Signed Impressions: Service Date/Time: Sunday, January 07, 2018 13:16 - CONCLUSION: Uncomplicated aspiration as above. Lázaro Yoo MD Hip MRI 01/05/18 0000 Signed Impressions: Service Date/Time: Friday, January 05, 2018 09:07 - CONCLUSION: Probable hematoma as above. There is no joint effusion. There is loss myelitis. Correlation is suggested. Wisam Bray MD FACR Lumbar Spine CT 01/03/18 0000 Signed Impressions: Service Date/Time: Wednesday, January 03, 2018 22:13 - CONCLUSION: 1. Multiple disc bulges in the lower lumbar spine with mild encroachment on the lateral recesses and neural foramina. No acute fracture. Mild scoliosis. Mild degenerative disc disease. Mani Robison MD Chest X-Ray 01/03/18 0000 Signed Impressions: Service Date/Time: Wednesday, January 03, 2018 20:06 - CONCLUSION: 1. Cardiomegaly. No acute findings. Mani Robison MD Abdomen/Pelvis CT 01/03/18 0000 Signed Impressions: Service Date/Time: Wednesday, January 03, 2018 22:13 - CONCLUSION: 1. Probable left hip joint effusion with some inflammatory or edematous changes in the musculature around the anterior left hip. Would be better evaluated with MRI. 2. No acute findings within the abdomen and pelvis. Multiple calcified gallstones. Small hiatal hernia. Mani Robison MD Physical Exam CONSTITUTIONAL/GENERAL: WDWN male patient, INAD. Awake and alert. Mother at the bedside. SKIN: Warm and dry. No rash. HEAD: Normocephalic, atraumatic EYES: EOMI. Bilateral sclera anicteric ENT: No nasal drainage noted. Airway patent. MMM. No oral thrush. NECK: Trachea midline. Supple, nontender. No meningeal signs. CARDIOVASCULAR: Regular rate and rhythm. 2-3/6 holosystolic murmur 2-3 /6. Well healed median sternotomy scar RESPIRATORY/CHEST: Nonlabored. CTA bilaterally. No wheezing noted GASTROINTESTINAL: Abdomen soft, nondistended. No hepato-splenomegaly, or palpable masses. No guarding. Bowel sounds present. (+)mild tenderness to palpation LLQ. MUSCULOSKELETAL: Extremities without clubbing, cyanosis, or edema. (+) tenderness to palpation over left hip/greater trochanter. Limited ROM secondary to pain. NEUROLOGICAL: Awake and alert. Oriented x 3. Motor and sensory grossly within normal limits. Able to move all extremities. Nonfocal. Slightly delayed but normal speech. PSYCHIATRIC: Calm and pleasant. Cooperative. (Gerda Miranda) Assessment & Plan Remarks High grade MSSA bacteremia in a pt with prosthetic valve - source PVE (prosthetic valve endocarditis) vs secondary bacteremia 2/2 septic L hip -LEÓN negative, but still can not totally exclude prosthetic valve infx as a source -sp L hip fluid aspiration - doubt infx (1 WBC) RECOMMENDATIONS: Repeat Blood cx with no growth D/C Gentamicin Continue on IV Cefazolin and Rifampin Plan to complete 6wk course to treat suspected PVE if no other source confirmed - will Rx full course for PVE if no other source confirmed Continue to follow blood cx Monitor fevers Continue to monitor clinical progress (Gerda Miranda) Remarks The exam, history, and the medical decision-making described in the above note were completed with the assistance of the mid-level provider. I reviewed and agree with the findings presented. I attest that I had a [id number] encounter with the patient on the same day, and personally performed and documented my assessment and findings in the medical record. Complains of left hip pain exam: no induration No rash CTA BL Recs: Continue Cefazolin DC Genta IV Continue Rifampin Follow CBC with diff, CMP. Follow bcx Follow clinically. (Claudia William MD) Gerda Miranda Jan 09, 2018 13:16 Claudia William MD Jan 09, 2018 18:14
[2018-01-09] MEDS ORDERED: INSULIN DETEMIR 100 UNITS/ML VIAL SQ SCH (21:00)
[2018-01-09] MEDS: TEMAZEPAM 15 MG CAP PO PRN (21:40)
[2018-01-10] VITALS (7 sets, daily range): BP systolic 147–188; BP diastolic 67–90; PULSE 77–106; RESP 18; TEMP 97.7–98.9; O2SAT 94–96
[2018-01-10] MEDS: cloNIDine HCL 0.1 MG TAB PO PRN ×2 (00:30→13:42)
[2018-01-10] MEDS: ceFAZolin 2 GM PREMIX 50 ML IV SCH ×3 (05:54→22:45)
--- NOTE | 2018-01-10 09:21 | HHI.PR ---
Subjective Remarks still complaints of left hip pain. moving leg more. Objective Vitals heart reg lungcta abd s/nt ext no pitting. Vital Signs Date Time Temp Pulse Resp B/P (MAP) Pulse Ox O2 Delivery O2 Flow Rate FiO2 01/10/18 08:35 98.9 83 18 147/67 (93) 96 01/10/18 04:30 81 01/10/18 04:00 98.0 77 18 170/78 (108) 94 01/10/18 00:30 106 01/10/18 00:00 97.7 86 18 188/90 (122) 94 01/09/18 20:30 93 01/09/18 20:00 98.6 94 20 159/72 (101) 94 01/09/18 16:41 97.8 79 20 169/77 (107) 96 01/09/18 11:56 98.0 86 20 160/76 (104) 96 Result Diagram: 01/06/18 0917 01/09/18 0734 Imaging Last Impressions Hip MRI 01/05/18 0000 Signed Impressions: Service Date/Time: Friday, January 05, 2018 09:07 - CONCLUSION: Probable hematoma as above. There is no joint effusion. There is loss myelitis. Correlation is suggested. Wisam Bray MD FACR Lumbar Spine CT 01/03/18 0000 Signed Impressions: Service Date/Time: Wednesday, January 03, 2018 22:13 - CONCLUSION: 1. Multiple disc bulges in the lower lumbar spine with mild encroachment on the lateral recesses and neural foramina. No acute fracture. Mild scoliosis. Mild degenerative disc disease. Mani Robison MD Chest X-Ray 01/03/18 0000 Signed Impressions: Service Date/Time: Wednesday, January 03, 2018 20:06 - CONCLUSION: 1. Cardiomegaly. No acute findings. Mani Robison MD Abdomen/Pelvis CT 01/03/18 0000 Signed Impressions: Service Date/Time: Wednesday, January 03, 2018 22:13 - CONCLUSION: 1. Probable left hip joint effusion with some inflammatory or edematous changes in the musculature around the anterior left hip. Would be better evaluated with MRI. 2. No acute findings within the abdomen and pelvis. Multiple calcified gallstones. Small hiatal hernia. 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 Tricuspid and pulmonary valves - echocardiogram (01/05/18). Hyperdynamic LV. EF 65-70%. No overt endocarditis identified. - CXR (01/03) Cardiomegaly. No acute findings CT abdomen pelvis (01/03) 1. Probable left hip joint effusion with some inflammatory or edematous changes in the musculature around the anterior left hip. Would be better evaluated with MRI. 2. No acute findings within the abdomen and pelvis. Multiple calcified gallstones. Small hiatal hernia. MRI Left Hip (01/05) probable hematoma at obturator internus and obturator externus. NO joint effusion - Pt seen by Gastroenterology. EGD (01/06). mild gastritis and esophagitis. no varices -IR for aspiration of fluid in left hip joint...not musculature on 01/07..ngtd -LEÓN 01/08..no obvious vegetations -Blood cx 01/03 mssa -Blood cx 01/05 mssa -Blood cx 01/08 ngtd x 1 day - Vancomycin (01/03 - 01/04) - Cefepime (01/04) - cont cefazolin, gent, rifampin per ID - await neg blood cx x 3 days then picc line for 6week abx - ID considering tagged wbc scan - updated mother at length bedside. (2) Alcohol withdrawal ICD Codes: F10.239 - Alcohol dependence with withdrawal, unspecified Status: Acute Plan: Scheduled Librium taper CIWA protocol (3) Hyponatremia ICD Codes: E87.1 - Hypo-osmolality and hyponatremia Status: Acute Plan: Patient does have ETOH abuse Na on admission 120 -> (01/04) 0319 130 -> (01/04) 1000 130, 132 (01/05) - (4) DM (diabetes mellitus) ICD Codes: E11.9 - Type 2 diabetes mellitus without complications Status: Chronic Plan: Diabetic diet - HgA1C 5.9 (12/04/17) - home meds on hold. not on formulary. add levemir and cont ssi. (5) Pulmonary embolism ICD Codes: I26.99 - Other pulmonary embolism without acute cor pulmonale Status: Chronic Plan: - prosthetic cardiac valves with post op PE - unclear if pt actually had PE. Could NOT find documentation for pulmonary embolism. - However per [place] records pt did have a thrombus on porcine valve following porcine valve placement in 2016. - Initial INR 1.5 upon [place] admission. do not believe that patient has been taking Coumadin as prescribed - coumadin on hold for procedures (6) Hepatitis C, chronic ICD Codes: B18.2 - Chronic viral hepatitis C Status: Chronic Plan: - Pt has had a few visits with Dr. Jamal Mixon - Pt has NOT yet started treatment for Hep C. (7) HTN (hypertension) ICD Codes: I10 - Essential (primary) hypertension Status: Chronic Problem Qualifiers (1) Sepsis: Qualified Codes: A41.9 - Sepsis, unspecified organism (2) Alcohol withdrawal: Qualified Codes: F10.230 - Alcohol dependence with withdrawal, uncomplicated (3) DM (diabetes mellitus): Qualified Codes: E11.8 - Type 2 diabetes mellitus with unspecified complications; Z79.4 - MCFP (current) use of insulin (4) Hepatitis C, chronic: Qualified Codes: B18.2 - Chronic viral hepatitis C Lio Dailey MD Jan 10, 2018 09:21
[2018-01-10] MEDS: ACETAMINOPHEN/HYDROcodone 325 MG/10 MG TAB PO PRN ×2 (09:23→17:43)
[2018-01-10] MEDS: LOSARTAN 50 MG TAB PO SCH (09:23)
[2018-01-10] MEDS: RIFAMPIN 150 MG CAP PO SCH ×2 (09:24→22:42)
[2018-01-10] MEDS: PRAVASTATIN SOD 40 MG TAB PO SCH (09:24)
[2018-01-10] MEDS: FLUoxetine HCL 20 MG CAP PO SCH (09:24)
[2018-01-10] MEDS: chlordiazePOXIDE 25 MG CAP PO SCH ×2 (09:25→22:42)
[2018-01-10] MEDS: DIGOXIN 0.25 MG TAB PO SCH (09:26)
[2018-01-10] MEDS: ASPIRIN EC 81 MG TABEC PO SCH (09:26)
[2018-01-10] MEDS: INSULIN DETEMIR 100 UNITS/ML VIAL SQ SCH ×2 (09:27→22:44)
[2018-01-10] MEDS: INSULIN ASPART SUPPLEMENTAL SCALE SQ SCH ×4 (09:28→22:44)
[2018-01-10] MEDS: MORPHINE SULFATE 4 MG/ML INJ IV PUSH PRN ×2 (13:43→22:43)
[2018-01-10] MEDS: TEMAZEPAM 15 MG CAP PO PRN (23:59)
[2018-01-11 00:35] VITALS: BP 132/74; PULSE 79; RESP 18; TEMP 97.7; O2SAT 96
[2018-01-11] MEDS: ACETAMINOPHEN/HYDROcodone 325 MG/10 MG TAB PO PRN ×3 (05:08→21:20)
[2018-01-11] MEDS: ceFAZolin 2 GM PREMIX 50 ML IV SCH ×3 (05:08→21:20)
[2018-01-11 05:16] VITALS: BP 163/79; PULSE 82; RESP 18; TEMP 98.2; O2SAT 96
[2018-01-11 08:00] VITALS: BP 168/81; PULSE 83; RESP 16; TEMP 98.2; O2SAT 95
[2018-01-11] MEDS: MORPHINE SULFATE 4 MG/ML INJ IV PUSH PRN ×4 (08:43→22:30)
[2018-01-11] MEDS: chlordiazePOXIDE 25 MG CAP PO SCH (08:44)
[2018-01-11] MEDS: PRAVASTATIN SOD 40 MG TAB PO SCH (08:44)
[2018-01-11] MEDS: DIGOXIN 0.25 MG TAB PO SCH (08:44)
[2018-01-11] MEDS: RIFAMPIN 150 MG CAP PO SCH ×2 (08:44→21:20)
[2018-01-11] MEDS: LOSARTAN 50 MG TAB PO SCH (08:45)
[2018-01-11] MEDS: FLUoxetine HCL 20 MG CAP PO SCH (08:45)
[2018-01-11] MEDS: ASPIRIN EC 81 MG TABEC PO SCH (08:45)
[2018-01-11] MEDS: INSULIN ASPART SUPPLEMENTAL SCALE SQ SCH ×4 (08:47→21:29)
[2018-01-11] MEDS: INSULIN DETEMIR 100 UNITS/ML VIAL SQ SCH ×2 (08:47→21:21)
--- NOTE | 2018-01-11 11:36 | HHI.PR ---
Subjective Remarks no new complaints. feels better. Objective Vitals heart reg lung cta abd s/nt ext no edema Vital Signs Date Time Temp Pulse Resp B/P (MAP) Pulse Ox O2 Delivery O2 Flow Rate FiO2 01/11/18 08:00 98.2 83 16 168/81 (110) 95 01/11/18 05:16 98.2 82 18 163/79 (107) 96 01/11/18 00:35 97.7 79 18 132/74 (93) 96 01/10/18 21:09 98.6 77 18 159/78 (105) 94 Result Diagram: 01/09/18 0734 Imaging Last Impressions Hip MRI 01/05/18 0000 Signed Impressions: Service Date/Time: Friday, January 05, 2018 09:07 - CONCLUSION: Probable hematoma as above. There is no joint effusion. There is loss myelitis. Correlation is suggested. Wisam Bray MD FACR Lumbar Spine CT 01/03/18 0000 Signed Impressions: Service Date/Time: Wednesday, January 03, 2018 22:13 - CONCLUSION: 1. Multiple disc bulges in the lower lumbar spine with mild encroachment on the lateral recesses and neural foramina. No acute fracture. Mild scoliosis. Mild degenerative disc disease. Mani Robison MD Chest X-Ray 01/03/18 0000 Signed Impressions: Service Date/Time: Wednesday, January 03, 2018 20:06 - CONCLUSION: 1. Cardiomegaly. No acute findings. Mani Robison MD Abdomen/Pelvis CT 01/03/18 0000 Signed Impressions: Service Date/Time: Wednesday, January 03, 2018 22:13 - CONCLUSION: 1. Probable left hip joint effusion with some inflammatory or edematous changes in the musculature around the anterior left hip. Would be better evaluated with MRI. 2. No acute findings within the abdomen and pelvis. Multiple calcified gallstones. Small hiatal hernia. 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 Tricuspid and pulmonary valves - echocardiogram (01/05/18). Hyperdynamic LV. EF 65-70%. No overt endocarditis identified. - CXR (01/03) Cardiomegaly. No acute findings CT abdomen pelvis (01/03) 1. Probable left hip joint effusion with some inflammatory or edematous changes in the musculature around the anterior left hip. Would be better evaluated with MRI. 2. No acute findings within the abdomen and pelvis. Multiple calcified gallstones. Small hiatal hernia. MRI Left Hip (01/05) probable hematoma at obturator internus and obturator externus. NO joint effusion - Pt seen by Gastroenterology. EGD (01/06). mild gastritis and esophagitis. no varices -IR for aspiration of fluid in left hip joint...not musculature on 01/07..ngtd -LEÓN 01/08..no obvious vegetations -Blood cx 01/03 mssa -Blood cx 01/05 mssa -Blood cx 01/08 ngtd x 2 days - Vancomycin (01/03 - 01/04) - Cefepime (01/04) - cont cefazolin, rifampin per ID. gent stopped. - await neg blood cx x 3 days then picc line for 6week abx - updated mother at length bedside. (2) Alcohol withdrawal ICD Codes: F10.239 - Alcohol dependence with withdrawal, unspecified Status: Acute Plan: Scheduled Librium taper CIWA protocol (3) Hyponatremia ICD Codes: E87.1 - Hypo-osmolality and hyponatremia Status: Acute Plan: Patient does have ETOH abuse Na on admission 120 -> (01/04) 0319 130 -> (01/04) 1000 130, 132 (01/05) - (4) DM (diabetes mellitus) ICD Codes: E11.9 - Type 2 diabetes mellitus without complications Status: Chronic Plan: Diabetic diet - HgA1C 5.9 (12/04/17) - home meds on hold. not on formulary. add levemir and cont ssi. (5) Pulmonary embolism ICD Codes: I26.99 - Other pulmonary embolism without acute cor pulmonale Status: Chronic Plan: - prosthetic cardiac valves with post op PE - unclear if pt actually had PE. Could NOT find documentation for pulmonary embolism. - However per [place] [facility] records pt did have a thrombus on porcine valve following porcine valve placement in 2015. - Initial INR 1.5 upon [place] admission. do not believe that patient has been taking Coumadin as prescribed - coumadin on hold for procedures (6) Hepatitis C, chronic ICD Codes: B18.2 - Chronic viral hepatitis C Status: Chronic Plan: - Pt has had a few visits with Dr. Jamal Mixon - Pt has NOT yet started treatment for Hep C. (7) HTN (hypertension) ICD Codes: I10 - Essential (primary) hypertension Status: Chronic Problem Qualifiers (1) Sepsis: Qualified Codes: A41.9 - Sepsis, unspecified organism (2) Alcohol withdrawal: Qualified Codes: F10.230 - Alcohol dependence with withdrawal, uncomplicated (3) DM (diabetes mellitus): Qualified Codes: E11.8 - Type 2 diabetes mellitus with unspecified complications; Z79.4 - senior care (current) use of insulin (4) Hepatitis C, chronic: Qualified Codes: B18.2 - Chronic viral hepatitis C Lio Dailey MD Jan 11, 2018 11:36
[2018-01-11 12:00] VITALS: BP 164/78; PULSE 91; RESP 17; TEMP 98; O2SAT 97
[2018-01-11 16:00] VITALS: BP 157/73; PULSE 88; RESP 17; TEMP 98.2; O2SAT 99
[2018-01-11 20:00] VITALS: BP 172/84; PULSE 82; PULSE 87; RESP 18; TEMP 98.2; O2SAT 96
[2018-01-11] MEDS: TEMAZEPAM 15 MG CAP PO PRN (21:20)
[2018-01-11] MEDS: cloNIDine HCL 0.1 MG TAB PO PRN (21:34)
[2018-01-12] VITALS: BP 164/78; PULSE 79; PULSE 82; RESP 18; TEMP 98; O2SAT 96
[2018-01-12] MEDS: ACETAMINOPHEN/HYDROcodone 325 MG/10 MG TAB PO PRN ×4 (03:30→21:18)
[2018-01-12 04:00] VITALS: BP 168/77; PULSE 80; RESP 18; TEMP 98.5; O2SAT 97
[2018-01-12] MEDS: cloNIDine HCL 0.1 MG TAB PO PRN (05:44)
[2018-01-12] MEDS: MORPHINE SULFATE 4 MG/ML INJ IV PUSH PRN ×3 (05:44→18:09)
[2018-01-12] MEDS: ceFAZolin 2 GM PREMIX 50 ML IV SCH ×3 (05:44→19:56)
[2018-01-12] MEDS: INSULIN ASPART SUPPLEMENTAL SCALE SQ SCH ×4 (08:00→20:06)
--- NOTE | 2018-01-12 08:17 | HHI.PR ---
Subjective Remarks no new problems Objective Vitals heart reg lung cta abd s/nt ext no edema Vital Signs Date Time Temp Pulse Resp B/P (MAP) Pulse Ox O2 Delivery O2 Flow Rate FiO2 01/12/18 04:00 98.5 80 18 168/77 (107) 97 01/12/18 00:00 98.0 79 18 164/78 (106) 96 01/12/18 00:00 82 01/11/18 20:00 98.2 82 18 172/84 (113) 96 01/11/18 20:00 87 01/11/18 16:00 98.2 88 17 157/73 (101) 99 01/11/18 12:00 98.0 91 17 164/78 (106) 97 01/12/18 01/12/18 01/13/18 15:00 23:00 07:00 # Voids 2 Result Diagram: 01/09/18 0734 Imaging Last Impressions Hip MRI 01/05/18 0000 Signed Impressions: Service Date/Time: Friday, January 05, 2018 09:07 - CONCLUSION: Probable hematoma as above. There is no joint effusion. There is loss myelitis. Correlation is suggested. Wisam Bray MD FACR Lumbar Spine CT 01/03/18 0000 Signed Impressions: Service Date/Time: Wednesday, January 03, 2018 22:13 - CONCLUSION: 1. Multiple disc bulges in the lower lumbar spine with mild encroachment on the lateral recesses and neural foramina. No acute fracture. Mild scoliosis. Mild degenerative disc disease. Mani Robison MD Chest X-Ray 01/03/18 0000 Signed Impressions: Service Date/Time: Wednesday, January 03, 2018 20:06 - CONCLUSION: 1. Cardiomegaly. No acute findings. Mani Robison MD Abdomen/Pelvis CT 01/03/18 0000 Signed Impressions: Service Date/Time: Wednesday, January 03, 2018 22:13 - CONCLUSION: 1. Probable left hip joint effusion with some inflammatory or edematous changes in the musculature around the anterior left hip. Would be better evaluated with MRI. 2. No acute findings within the abdomen and pelvis. Multiple calcified gallstones. Small hiatal hernia. 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 Tricuspid and pulmonary valves - echocardiogram (01/05/18). Hyperdynamic LV. EF 65-70%. No overt endocarditis identified. - CXR (01/03) Cardiomegaly. No acute findings CT abdomen pelvis (01/03) 1. Probable left hip joint effusion with some inflammatory or edematous changes in the musculature around the anterior left hip. Would be better evaluated with MRI. 2. No acute findings within the abdomen and pelvis. Multiple calcified gallstones. Small hiatal hernia. MRI Left Hip (01/05) probable hematoma at obturator internus and obturator externus. NO joint effusion - Pt seen by Gastroenterology. EGD (01/06). mild gastritis and esophagitis. no varices -IR for aspiration of fluid in left hip joint...not musculature on 01/07..ngtd -LEÓN 01/08..no obvious vegetations -Blood cx 01/03 mssa -Blood cx 01/05 mssa -Blood cx 01/08 ngtd x 3 days - Vancomycin (01/03 - 01/04) - Cefepime (01/04) - cont cefazolin, rifampin per ID. gent stopped. - neg blood cx x 3 days. ordered picc for AM. picc line for 6week abx - updated mother at length bedside. (2) Alcohol withdrawal ICD Codes: F10.239 - Alcohol dependence with withdrawal, unspecified Status: Acute Plan: Scheduled Librium taper CIWA protocol (3) Hyponatremia ICD Codes: E87.1 - Hypo-osmolality and hyponatremia Status: Acute Plan: Patient does have ETOH abuse Na on admission 120 -> (01/04) 0319 130 -> (01/04) 1000 130, 132 (01/05) - (4) DM (diabetes mellitus) ICD Codes: E11.9 - Type 2 diabetes mellitus without complications Status: Chronic Plan: Diabetic diet - HgA1C 5.9 (12/04/17) - home meds on hold. not on formulary. add levemir and cont ssi. (5) Pulmonary embolism ICD Codes: I26.99 - Other pulmonary embolism without acute cor pulmonale Status: Chronic Plan: - prosthetic cardiac valves with post op PE - unclear if pt actually had PE. Could NOT find documentation for pulmonary embolism. - However per [facility] records pt did have a thrombus on porcine valve following porcine valve placement in 2016. - Initial INR 1.5 upon [facility] admission. do not believe that patient has been taking Coumadin as prescribed . coumadin resumed. says he was on 5mg daily (6) Hepatitis C, chronic ICD Codes: B18.2 - Chronic viral hepatitis C Status: Chronic Plan: - Pt has had a few visits with Dr. Jamal Mixon - Pt has NOT yet started treatment for Hep C. (7) HTN (hypertension) ICD Codes: I10 - Essential (primary) hypertension Status: Chronic Plan: titrate bp meds on arb. add ccb. Problem Qualifiers (1) Sepsis: Qualified Codes: A41.9 - Sepsis, unspecified organism (2) Alcohol withdrawal: Qualified Codes: F10.230 - Alcohol dependence with withdrawal, uncomplicated (3) DM (diabetes mellitus): Qualified Codes: E11.8 - Type 2 diabetes mellitus with unspecified complications; Z79.4 - alf (current) use of insulin (4) Hepatitis C, chronic: Qualified Codes: B18.2 - Chronic viral hepatitis C Lio Dailey MD Jan 12, 2018 08:17
[2018-01-12 08:49] LABS: BICARBONATE 30.4 MEQ/L (21.0-32.0); CREATININE 0.75 MG/DL (0.60-1.30)
[2018-01-12] MEDS: LOSARTAN 50 MG TAB PO SCH (09:20)
[2018-01-12] MEDS: chlordiazePOXIDE 25 MG CAP PO SCH (09:20)
[2018-01-12] MEDS: PRAVASTATIN SOD 40 MG TAB PO SCH (09:21)
[2018-01-12] MEDS: ENOXAPARIN SODIUM 40 MG/0.4 ML SYRINGE SQ SCH (09:21)
[2018-01-12] MEDS: amLODIPine BESYLATE 5 MG TAB PO SCH (09:21)
[2018-01-12] MEDS: DIGOXIN 0.25 MG TAB PO SCH (09:21)
[2018-01-12] MEDS: ASPIRIN EC 81 MG TABEC PO SCH (09:21)
[2018-01-12] MEDS: RIFAMPIN 150 MG CAP PO SCH ×2 (09:21→19:56)
[2018-01-12] MEDS: FLUoxetine HCL 20 MG CAP PO SCH (09:22)
[2018-01-12] MEDS: INSULIN DETEMIR 100 UNITS/ML VIAL SQ SCH ×2 (09:30→19:56)
[2018-01-12 11:56] VITALS: BP 157/75; PULSE 80; RESP 18; TEMP 98.5; O2SAT 99
[2018-01-12 16:00] VITALS: BP 147/76; PULSE 82; RESP 20; TEMP 98; O2SAT 100
[2018-01-12] MEDS ORDERED: WARFARIN SOD 7.5 MG TAB PO ONE (16:00)
[2018-01-12] MEDS: TEMAZEPAM 15 MG CAP PO PRN (19:57)
[2018-01-12 20:00] VITALS: BP 153/82; PULSE 80; PULSE 84; RESP 18; TEMP 97.5; O2SAT 100
[2018-01-13] VITALS (11 sets, daily range): BP systolic 111–191; BP diastolic 73–88; PULSE 80–91; RESP 18–20; TEMP 97.3–98.7; O2SAT 94–100
[2018-01-13] MEDS: cloNIDine HCL 0.1 MG TAB PO PRN (01:28)
[2018-01-13] MEDS: MORPHINE SULFATE 4 MG/ML INJ IV PUSH PRN ×4 (01:28→20:48)
[2018-01-13] MEDS: ceFAZolin 2 GM PREMIX 50 ML IV SCH ×3 (05:40→20:31)
[2018-01-13] MEDS: ACETAMINOPHEN/HYDROcodone 325 MG/10 MG TAB PO PRN ×3 (05:41→18:42)
[2018-01-13 07:28] LABS: INTERNATIONAL NORMALIZED RATIO 1.2 RATIO; PROTHROMBIN TIME - PATIENT 12.6 SEC (9.8-11.6)
[2018-01-13] MEDS: INSULIN ASPART SUPPLEMENTAL SCALE SQ SCH ×4 (08:28→20:59)
[2018-01-13] MEDS: INSULIN DETEMIR 100 UNITS/ML VIAL SQ SCH ×2 (08:31→20:31)
[2018-01-13] MEDS: ENOXAPARIN SODIUM 40 MG/0.4 ML SYRINGE SQ SCH (08:32)
[2018-01-13] MEDS: RIFAMPIN 150 MG CAP PO SCH ×2 (08:32→20:25)
[2018-01-13] MEDS: chlordiazePOXIDE 25 MG CAP PO SCH (08:32)
[2018-01-13] MEDS: amLODIPine BESYLATE 5 MG TAB PO SCH (08:33)
[2018-01-13] MEDS: DIGOXIN 0.25 MG TAB PO SCH (08:33)
[2018-01-13] MEDS: PRAVASTATIN SOD 40 MG TAB PO SCH (08:33)
[2018-01-13] MEDS: LOSARTAN 50 MG TAB PO SCH (08:33)
[2018-01-13] MEDS: FLUoxetine HCL 20 MG CAP PO SCH (08:33)
[2018-01-13] MEDS: ASPIRIN EC 81 MG TABEC PO SCH (08:33)
[2018-01-13] MEDS ORDERED: Gentamicin Consult Pharmacy 1 EA OTHER SCH (13:15)
--- NOTE | 2018-01-13 13:20 | HHI.IDPN ---
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 Vital Signs Date Time Temp Pulse Resp B/P (MAP) Pulse Ox O2 Delivery O2 Flow Rate FiO2 01/13/18 12:32 98.2 89 20 152/81 (104) 100 01/13/18 11:53 90 01/13/18 08:25 98.7 80 20 158/76 (103) 94 01/13/18 08:18 81 01/13/18 04:00 98.0 86 18 155/76 (102) 96 01/13/18 04:00 87 01/13/18 01:44 161/87 (111) 01/13/18 00:00 97.5 85 18 191/88 (122) 97 01/13/18 00:00 87 01/12/18 20:00 97.5 80 18 153/82 (105) 100 01/12/18 20:00 84 01/12/18 16:00 98.0 82 20 147/76 (99) 100 . Laboratory Tests Test 01/12/18 07:37 Blood Urea Nitrogen 8 MG/DL Creatinine 0.75 MG/DL Random Glucose 122 MG/DL Calcium Level 9.0 MG/DL Sodium Level 135 MEQ/L Potassium Level 5.0 MEQ/L Chloride Level 99 MEQ/L Carbon Dioxide Level 30.4 MEQ/L Anion Gap 6 MEQ/L Estimat Glomerular Filtration Rate 109 ML/MIN Imaging b Last Impressions Hip Aspiration/Injection 01/07/18 0000 Signed Impressions: Service Date/Time: Sunday, January 07, 2018 13:16 - CONCLUSION: Uncomplicated aspiration as above. Lázaro Yoo MD Hip MRI 01/05/18 0000 Signed Impressions: Service Date/Time: Friday, January 05, 2018 09:07 - CONCLUSION: Probable hematoma as above. There is no joint effusion. There is loss myelitis. Correlation is suggested. Wisam Bray MD FACR Lumbar Spine CT 01/03/18 0000 Signed Impressions: Service Date/Time: Wednesday, January 03, 2018 22:13 - CONCLUSION: 1. Multiple disc bulges in the lower lumbar spine with mild encroachment on the lateral recesses and neural foramina. No acute fracture. Mild scoliosis. Mild degenerative disc disease. Mani Robison MD Chest X-Ray 01/03/18 0000 Signed Impressions: Service Date/Time: Wednesday, January 03, 2018 20:06 - CONCLUSION: 1. Cardiomegaly. No acute findings. Mani Robison MD Abdomen/Pelvis CT 01/03/18 0000 Signed Impressions: Service Date/Time: Wednesday, January 03, 2018 22:13 - CONCLUSION: 1. Probable left hip joint effusion with some inflammatory or edematous changes in the musculature around the anterior left hip. Would be better evaluated with MRI. 2. No acute findings within the abdomen and pelvis. Multiple calcified gallstones. Small hiatal hernia. Mani Robison MD Physical Exam CONSTITUTIONAL/GENERAL: WDWN male patient, INAD. Awake and alert. Mother at the bedside. SKIN: Warm and dry. No rash. HEAD: Normocephalic, atraumatic EYES: EOMI. Bilateral sclera anicteric ENT: No nasal drainage noted. Airway patent. MMM. No oral thrush. NECK: Trachea midline. Supple, nontender. No meningeal signs. CARDIOVASCULAR: Regular rate and rhythm. 2-3/6 holosystolic murmur 2-3 /6. Well healed median sternotomy scar RESPIRATORY/CHEST: Nonlabored. CTA bilaterally. No wheezing noted GASTROINTESTINAL: Abdomen soft, nondistended. No hepato-splenomegaly, or palpable masses. No guarding. Bowel sounds present. (+)mild tenderness to palpation LLQ. MUSCULOSKELETAL: Extremities without clubbing, cyanosis, or edema. (+) tenderness to palpation over left hip/greater trochanter. Limited ROM secondary to pain. Tender to palpation over L ischium area NEUROLOGICAL: Awake and alert. Oriented x 3. Motor and sensory grossly within normal limits. Able to move all extremities. Nonfocal. Slightly delayed but normal speech. PSYCHIATRIC: Calm and pleasant. Cooperative. Assessment & Plan Remarks HIgh grade MSSA bactermeia in a pt with prosthetic valve - source PVE (prosthetic valve endocarditis) vs secondary bactremia 2/2 septic L hip LEÓN negative, but still can not totally exclude prosthetic valve infx as a source sp L hip fluid aspiration - doubt infx (1 WBC) Schiatica pain Recs: cont cefazolin, gent/rifampin will restart gentamycin - will Rx full course for PVE if no other source confirmed PICC ? contrasted MRI of hip, pelvis? Roula Carrillo MD Jan 13, 2018 13:20
[2018-01-13] MEDS: GENTAMICIN INJ 90 MG in SODIUM CHLORIDE 0.9% INJ 100 ML IV SCH ×2 (15:04→22:21)
--- NOTE | 2018-01-13 15:38 | HHI.PR ---
Subjective Remarks No new complaints. Objective Vitals Vital Signs Date Time Temp Pulse Resp B/P (MAP) Pulse Ox O2 Delivery O2 Flow Rate FiO2 01/13/18 15:35 97.4 87 20 170/82 (111) 97 01/13/18 12:32 98.2 89 20 152/81 (104) 100 01/13/18 11:53 90 01/13/18 08:25 98.7 80 20 158/76 (103) 94 01/13/18 08:18 81 01/13/18 04:00 98.0 86 18 155/76 (102) 96 01/13/18 04:00 87 01/13/18 01:44 161/87 (111) 01/13/18 00:00 97.5 85 18 191/88 (122) 97 01/13/18 00:00 87 01/12/18 20:00 97.5 80 18 153/82 (105) 100 01/12/18 20:00 84 01/12/18 16:00 98.0 82 20 147/76 (99) 100 Result Diagram: 01/12/18 0737 Imaging Last Impressions Hip MRI 01/05/18 0000 Signed Impressions: Service Date/Time: Friday, January 05, 2018 09:07 - CONCLUSION: Probable hematoma as above. There is no joint effusion. There is loss myelitis. Correlation is suggested. Wisam Bray MD FACR Lumbar Spine CT 01/03/18 0000 Signed Impressions: Service Date/Time: Wednesday, January 03, 2018 22:13 - CONCLUSION: 1. Multiple disc bulges in the lower lumbar spine with mild encroachment on the lateral recesses and neural foramina. No acute fracture. Mild scoliosis. Mild degenerative disc disease. Mani Robison MD Chest X-Ray 01/03/18 0000 Signed Impressions: Service Date/Time: Wednesday, January 03, 2018 20:06 - CONCLUSION: 1. Cardiomegaly. No acute findings. Mani Robison MD Abdomen/Pelvis CT 01/03/18 0000 Signed Impressions: Service Date/Time: Wednesday, January 03, 2018 22:13 - CONCLUSION: 1. Probable left hip joint effusion with some inflammatory or edematous changes in the musculature around the anterior left hip. Would be better evaluated with MRI. 2. No acute findings within the abdomen and pelvis. Multiple calcified gallstones. Small hiatal hernia. Mani Robison MD Objective Remarks GENERAL: This is a well-nourished, well-developed patient, in no apparent distress. CARDIOVASCULAR: Regular rate and rhythm without murmurs, gallops, or rubs. RESPIRATORY: Clear to auscultation. Breath sounds equal bilaterally. No wheezes , rales, or rhonchi. GASTROINTESTINAL: Abdomen soft, non-tender, nondistended. Normal active bowel sounds MUSCULOSKELETAL: Extremities without clubbing, cyanosis, or edema. NEURO: Alert & Oriented x4 to person, place, time, situation. 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 Tricuspid and pulmonary valves - echocardiogram (01/05/18). Hyperdynamic LV. EF 65-70%. No overt endocarditis identified. - CXR (01/03) Cardiomegaly. No acute findings CT abdomen pelvis (01/03) 1. Probable left hip joint effusion with some inflammatory or edematous changes in the musculature around the anterior left hip. Would be better evaluated with MRI. 2. No acute findings within the abdomen and pelvis. Multiple calcified gallstones. Small hiatal hernia. MRI Left Hip (01/05) probable hematoma at obturator internus and obturator externus. NO joint effusion - Pt seen by Gastroenterology. EGD (01/06). mild gastritis and esophagitis. no varices -IR for aspiration of fluid in left hip joint...not musculature on 01/07..ngtd -LEÓN 01/08..no obvious vegetations -Blood cx 01/03 mssa -Blood cx 01/05 mssa -Blood cx 01/08 ngtd x 5 days - Vancomycin (01/03 - 01/04) - Cefepime (01/04) - cont cefazolin, rifampin per ID. gent resumed - PICC placed - Case d/w Dr. Carrillo (01/13). Will further review case with Radiology. - Repeat MRI right hip? - anticipate d/c in 1-3 days (2) Alcohol withdrawal ICD Codes: F10.239 - Alcohol dependence with withdrawal, unspecified Status: Acute Plan: Scheduled Librium taper CIWA protocol (3) Hyponatremia ICD Codes: E87.1 - Hypo-osmolality and hyponatremia Status: Acute Plan: Patient does have ETOH abuse Na on admission 120 -> (01/04) 0319 130 -> (01/04) 1000 130, 132 (01/05) - (4) DM (diabetes mellitus) ICD Codes: E11.9 - Type 2 diabetes mellitus without complications Status: Chronic Plan: Diabetic diet - HgA1C 5.9 (12/04/17) - home meds on hold. not on formulary. add levemir and cont ssi. (5) Pulmonary embolism ICD Codes: I26.99 - Other pulmonary embolism without acute cor pulmonale Status: Chronic Plan: - prosthetic cardiac valves with post op PE - unclear if pt actually had PE. Could NOT find documentation for pulmonary embolism. - However per [facility] records pt did have a thrombus on porcine valve following porcine valve placement in 2015. - Initial INR 1.5 upon [facility] admission. do not believe that patient has been taking Coumadin as prescribed . coumadin resumed. says he was on 5mg daily (6) Hepatitis C, chronic ICD Codes: B18.2 - Chronic viral hepatitis C Status: Chronic Plan: - Pt has had a few visits with Dr. Jamal Mixon - Pt has NOT yet started treatment for Hep C. (7) HTN (hypertension) ICD Codes: I10 - Essential (primary) hypertension Status: Chronic Plan: titrate bp meds on arb. add ccb. Problem Qualifiers (1) Sepsis: Qualified Codes: A41.9 - Sepsis, unspecified organism (2) Alcohol withdrawal: Qualified Codes: F10.230 - Alcohol dependence with withdrawal, uncomplicated (3) DM (diabetes mellitus): Qualified Codes: E11.8 - Type 2 diabetes mellitus with unspecified complications; Z79.4 - [facility] (current) use of insulin (4) Hepatitis C, chronic: Qualified Codes: B18.2 - Chronic viral hepatitis C Peter Maddox DO Jan 13, 2018 15:38
[2018-01-13] MEDS ORDERED: WARFARIN SOD 5 MG TAB PO SCH (16:00)
--- NOTE | 2018-01-13 18:53 | RADRPT ---
EXAM DATE/TIME: 01/13/2018 18:10 [facility] COMPARISON: CHEST SINGLE AP, January 13, 2018, 18:29. INDICATIONS : PICC placement. MEDICAL HISTORY : Hypertension. Hepatitis C. Diabetes mellitus type II. SURGICAL HISTORY : CABG. ENCOUNTER: Initial ACUITY: 1 day PAIN SCORE: 0/10 LOCATION: Bilateral chest FINDINGS: Right arm PICC line crosses midline and has its tip in the left subclavian vein. Trace atelectasis/scarring again seen left base. No pleural effusion or pneumothorax. Heart size stab le, upper limits of normal to mildly enlarged. CONCLUSION: The right arm PIC line has its tip in the left subclavian vein. Sukhjinder Stephen MD on January 13, 2018 at 18:50 Board Certified Radiologist. This report was verified electronically.
--- NOTE | 2018-01-13 18:54 | RADRPT ---
EXAM DATE/TIME: 01/13/2018 18:29 [facility] COMPARISON: CHEST SINGLE AP, January 13, 2018, 18:10. INDICATIONS : PICC readjustment. MEDICAL HISTORY : Hypertension. Diabetes mellitus type II. Hepatitis C. SURGICAL HISTORY : CABG. ENCOUNTER: Subsequent ACUITY: 1 day PAIN SCORE: 0/10 LOCATION: Bilateral chest FINDINGS: There is a right arm PICC again seen. It has been pulled back several centimeters. Tip is now in the right subclavian vein, probably close to its confluence with the right IJ vein. No pneumothorax or ef fusion. Mild atelectasis/scarring of the left base again noted. CONCLUSION: Right arm PICC now with tip in the right subclavian vein. Sukhjinder Stephen MD on January 13, 2018 at 18:51 Board Certified Radiologist. This report was verified electronically.
--- NOTE | 2018-01-13 19:53 | RADRPT ---
EXAM DATE/TIME: 01/13/2018 19:36 [facility] COMPARISON: CHEST SINGLE AP, January 13, 2018, 18:29. INDICATIONS : PICC line readjustment. MEDICAL HISTORY : Hypertension. Diabetes mellitus type II. Hepatitis C. SURGICAL HISTORY : CABG. ENCOUNTER: Subsequent ACUITY: 1 day PAIN SCORE: 0/10 LOCATION: Bilateral chest FINDINGS: Right arm PICC again noted. Tip is in the superior vena cava. The arm is adducted on this study. No i nfiltrate, effusion or pneumothorax. CONCLUSION: Right arm PICC with tip in the superior vena cava. Sukhjinder Stephen MD on January 13, 2018 at 19:50 Board Certified Radiologist. This report was verified electronically.
[2018-01-13] MEDS: TEMAZEPAM 15 MG CAP PO PRN (20:48)
[2018-01-14] VITALS (10 sets, daily range): BP systolic 111–166; BP diastolic 55–79; PULSE 64–110; RESP 18–20; TEMP 98–98.8; O2SAT 94–98
[2018-01-14] MEDS: ACETAMINOPHEN/HYDROcodone 325 MG/10 MG TAB PO PRN ×3 (03:09→18:01)
[2018-01-14] MEDS: cloNIDine HCL 0.1 MG TAB PO PRN ×3 (04:09→23:13)
[2018-01-14 05:47] LABS: CREATININE 0.51 MG/DL (0.60-1.30)
[2018-01-14] MEDS: ceFAZolin 2 GM PREMIX 50 ML IV SCH ×3 (07:28→21:55)
[2018-01-14] MEDS: GENTAMICIN INJ 90 MG in SODIUM CHLORIDE 0.9% INJ 100 ML IV SCH ×3 (07:28→21:58)
--- NOTE | 2018-01-14 07:33 | PD.ORT.PN ---
Subjective Subjective Remarks Patient resting comfortably. Patient complains of left buttock and posterior thigh pain. He denies groin pain. He reports a history of back pain Objective Vitals Vital Signs Date Time Temp Pulse Resp B/P (MAP) Pulse Ox O2 Delivery O2 Flow Rate FiO2 01/14/18 04:00 98.1 100 18 164/79 (107) 96 01/14/18 00:30 110 01/14/18 00:00 98.0 101 18 164/78 (106) 96 01/13/18 20:30 87 01/13/18 20:00 97.3 88 18 111/73 (86) 95 01/13/18 15:44 91 01/13/18 15:35 97.4 87 20 170/82 (111) 97 01/13/18 12:32 98.2 89 20 152/81 (104) 100 01/13/18 11:53 90 01/13/18 08:25 98.7 80 20 158/76 (103) 94 01/13/18 08:18 81 I/O 01/13/18 01/13/18 01/13/18 01/14/18 01/14/18 01/14/18 07:00 15:00 23:00 07:00 15:00 23:00 Intake Total 50 ml 152.25 ml Balance 50 ml 152.25 ml IV Total 50 ml 152.25 ml # Voids 3 1 5 Result Diagram: 01/14/18 0520 Objective Remarks Sleeping but arousable. No acute distress. Left lower extremity: Patient actively uses his left leg to transition positions in bed. He has full active range of motion of his hip with minimal discomfort. 5/5 strength IP, quads, hamstrings, gastroc, TA, EHL and FHL. Sensation intact. Negative Homans. Assessment & Plan Assessment and Plan 52-year-old gentleman with left lower extremity radiculopathy and reports of chronic back pain Patient denies hip pain. He reports posterior buttock and thigh pain on the left. He has no pain with full range of motion of the hip. At this time, I discussed with the patient that I do believe his buttock and leg pain is coming from his low back. I discussed with the patient that radiculopathy is not uncommon especially as with degenerative changes in the spine that narrows the space available for his nerves. Patient reports a history of chronic low back pain. I do understand that the patient has difficulty with ambulation as a result of his pain, however, he has full strength on exam and no significant numbness or tingling. At this time, I would recommend patient can follow-up as an outpatient for his low back issues including his radiculopathy. Given the concern for infection on presentation, I would avoid steroids. Could consider starting gabapentin, however, given the patient's history of alcohol abuse and as he is a poor historian, I would not necessarily recommend starting this at this time. Could consider an MRI of his lumbar spine, however, again this could be done as an outpatient and typically is. He likely would benefit from physical therapy, medications, and/or injections as an outpatient. At this time, no orthopedic intervention. Would recommend mobilization and discharge once patient is safe. Ami Lauren MD Jan 14, 2018 07:33
[2018-01-14] MEDS: MORPHINE SULFATE 4 MG/ML INJ IV PUSH PRN ×4 (08:13→22:06)
[2018-01-14] MEDS: DIGOXIN 0.25 MG TAB PO SCH (08:14)
[2018-01-14] MEDS: amLODIPine BESYLATE 5 MG TAB PO SCH (08:14)
[2018-01-14] MEDS: PRAVASTATIN SOD 40 MG TAB PO SCH (08:14)
[2018-01-14] MEDS: chlordiazePOXIDE 25 MG CAP PO SCH (08:14)
[2018-01-14] MEDS: FLUoxetine HCL 20 MG CAP PO SCH (08:14)
[2018-01-14] MEDS: ASPIRIN EC 81 MG TABEC PO SCH (08:15)
[2018-01-14] MEDS: INSULIN ASPART SUPPLEMENTAL SCALE SQ SCH ×4 (08:15→22:06)
[2018-01-14] MEDS: RIFAMPIN 150 MG CAP PO SCH ×2 (08:15→21:49)
[2018-01-14] MEDS: ENOXAPARIN SODIUM 40 MG/0.4 ML SYRINGE SQ SCH (08:16)
[2018-01-14] MEDS: LOSARTAN 50 MG TAB PO SCH (08:16)
[2018-01-14] MEDS: INSULIN DETEMIR 100 UNITS/ML VIAL SQ SCH ×2 (08:16→21:00)
[2018-01-14] MEDS ORDERED: GADODIAMIDE PF 287 MG/ML 20 ML VIAL (for RAD MRI) IVCONTRAST ONE (13:39)
--- NOTE | 2018-01-14 14:32 | RADRPT ---
EXAM DATE/TIME: 01/14/2018 12:52 [facility] COMPARISON: MRI HIP LEFT W/O CONTRAST, January 05, 2018, 9:07. MRI HIP LEFT W & W/O CONTRAST, January 14, 2018, 12:5 2. INDICATIONS : Lower back pain. CONTRAST: 18 cc Omniscan (gadodiamide) IV MEDICAL HISTORY : Hypertension. Diabetes mellitus type 2. CAD SURGICAL HISTORY : CABG ENCOUNTER: Subsequent ACUITY: 2 weeks PAIN SCORE: 4/10 LOCATION: lower back TECHNIQUE: Multiplanar multisequence MRI of the lumbar spine was performed with and without contrast. FINDINGS: The most caudal appearing lumbar vertebra is numbered as L5. VERTEBRAE: Homogeneous signal. Normal alignment. CONUS: Normal level and configuration. POST CONTRAST: No abnormal areas of contrast enhancement are seen. T12-L1: No evidence of focal disc protrusion. Thecal sac is normal diameter and configuration. Neural foramin al diameters within normal limits. L1-L2: No evidence of focal disc protrusion. Thecal sac is normal diameter and configuration. Neural foramin al diameters within normal limits. L2-L3: No evidence of focal disc protrusion. Thecal sac is normal diameter and configuration. Neural foramin al diameters within normal limits. L3-L4: Disc desiccation and minimal broad-based disc bulge left greater than right. Mild left neuroforaminal narrowing. Central canal diameter within normal limits. L4-L5: Disc desiccation and broad-based left lateral disc bulge. Central canal and neural foraminal diameter s within normal limits. Disc abuts the left L4 nerve lateral to the foramen. Mild bilateral facet hyp ertrophy. L5-S1: Mild bilateral facet hypertrophy. No evidence of focal disc protrusion. Thecal sac is normal diameter and configuration. Neural foraminal diameters within normal limits. CONCLUSION: Degenerative findings of the lower lumbar spine with mild left neural foraminal narro wing at L3-4. Central canal diameter within normal limits at all levels. Con Michel MD on January 14, 2018 at 14:06 Board Certified Radiologist. This report was verified electronically.
[2018-01-14] MEDS ORDERED: PHARMACY ORDERED LAB-GENT TROUGH ONE (14:45)
--- NOTE | 2018-01-14 14:50 | RADRPT ---
EXAM DATE/TIME: 01/14/2018 12:52 [facility] COMPARISON: MRI HIP LEFT W/O CONTRAST, January 05, 2018, 9:07. INDICATIONS : Left hip pain with prior asporation. CONTRAST: 18 cc Omniscan (gadodiamide) IV MEDICAL HISTORY : Hypertension. Diabetes mellitus type 2. CAD SURGICAL HISTORY : CABG ENCOUNTER: Subsequent ACUITY: 2 weeks PAIN SCORE: 4/10 LOCATION: Left hip TECHNIQUE: Multiplanar, multisequence MRI examination was performed without contrast and after the intravenous administration of gadolinium. FINDINGS: Moderate-sized left hip joint effusion with diffuse synovial enhancement on the postcontrast images. Ill-defined enhancement of the periarticular soft tissues of the left hip. Enhancement and edema exte nds into the adjacent left adductor muscles. Elongated fluid collection in the adductor muscles immed iately medial to the left femoral neck measures 4.5 x 1.7 cm in axial dimensions and 2.3 cm in cranio caudal dimension. Ill-defined bony edema and enhancement is seen in the acetabulum and femoral neck a bout the margins of the joint. Mild superior left hip articular cartilage thinning noted. Comparison is made to the prior study of 01/05/2018. The prior study was performed without contrast an d had significant motion artifact. The soft tissue and bony edema on the current study are grossly si milar to prior study. Periarticular fluid collection is better defined on the current study. CONCLUSION: Inflammatory process centered at the left hip. Diffuse synovial enhancement, joint effusion, and romana articular edema/enhancement is seen. Findings are suspicious for septic arthritis. Medial periarticul ar peripheral enhancing fluid collection is suspicious for abscess. Con Michel MD on January 14, 2018 at 14:31 Board Certified Radiologist. This report was verified electronically.
--- NOTE | 2018-01-14 14:55 | HHI.PR ---
Subjective Remarks Pt c/o continued pain at left hip limiting his ambulation. Objective Vitals Vital Signs Date Time Temp Pulse Resp B/P (MAP) Pulse Ox O2 Delivery O2 Flow Rate FiO2 01/14/18 12:50 98.1 87 20 166/77 (106) 98 01/14/18 08:49 98.0 88 20 161/73 (102) 96 01/14/18 08:00 86 01/14/18 04:00 98.1 100 18 164/79 (107) 96 01/14/18 00:30 110 01/14/18 00:00 98.0 101 18 164/78 (106) 96 01/13/18 20:30 87 01/13/18 20:00 97.3 88 18 111/73 (86) 95 01/13/18 15:44 91 01/13/18 15:35 97.4 87 20 170/82 (111) 97 Result Diagram: 01/14/18 0520 Imaging Last Impressions Chest X-Ray 01/13/18 0000 Signed Impressions: Service Date/Time: Saturday, January 13, 2018 19:36 - CONCLUSION: Right arm PICC with tip in the superior vena cava. Sukhjinder Stephen MD Hip Aspiration/Injection 01/07/18 0000 Signed Impressions: Service Date/Time: Sunday, January 07, 2018 13:16 - CONCLUSION: Uncomplicated aspiration as above. Lázaro Yoo MD Hip MRI 01/05/18 0000 Signed Impressions: Service Date/Time: Friday, January 05, 2018 09:07 - CONCLUSION: Probable hematoma as above. There is no joint effusion. There is loss myelitis. Correlation is suggested. Wisam Bray MD FACR Lumbar Spine CT 01/03/18 0000 Signed Impressions: Service Date/Time: Wednesday, January 03, 2018 22:13 - CONCLUSION: 1. Multiple disc bulges in the lower lumbar spine with mild encroachment on the lateral recesses and neural foramina. No acute fracture. Mild scoliosis. Mild degenerative disc disease. Mani Robison MD Abdomen/Pelvis CT 01/03/18 0000 Signed Impressions: Service Date/Time: Wednesday, January 03, 2018 22:13 - CONCLUSION: 1. Probable left hip joint effusion with some inflammatory or edematous changes in the musculature around the anterior left hip. Would be better evaluated with MRI. 2. No acute findings within the abdomen and pelvis. Multiple calcified gallstones. Small hiatal hernia. Mani Robison MD Objective Remarks GENERAL: This is a well-nourished, well-developed patient, in no apparent distress. CARDIOVASCULAR: Regular rate and rhythm without murmurs, gallops, or rubs. RESPIRATORY: Clear to auscultation. Breath sounds equal bilaterally. No wheezes , rales, or rhonchi. GASTROINTESTINAL: Abdomen soft, non-tender, nondistended. Normal active bowel sounds MUSCULOSKELETAL: pain with passive external rotation of left hip NEURO: Alert & Oriented x4 to person, place, time, situation. 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 Tricuspid and pulmonary valves - echocardiogram (01/05/18). Hyperdynamic LV. EF 65-70%. No overt endocarditis identified. - CXR (01/03) Cardiomegaly. No acute findings CT abdomen pelvis (01/03) 1. Probable left hip joint effusion with some inflammatory or edematous changes in the musculature around the anterior left hip. Would be better evaluated with MRI. 2. No acute findings within the abdomen and pelvis. Multiple calcified gallstones. Small hiatal hernia. MRI Left Hip (01/05) probable hematoma at obturator internus and obturator externus. NO joint effusion - Pt seen by Gastroenterology. EGD (01/06). mild gastritis and esophagitis. no varices -IR for aspiration of fluid in left hip joint...not musculature on 01/07..ngtd -LEÓN 01/08..no obvious vegetations -Blood cx 01/03 mssa -Blood cx 01/05 mssa -Blood cx 01/08 ngtd x 5 days - Vancomycin (01/03 - 01/04) - Cefepime (01/04) - cont cefazolin, rifampin per ID. gent resumed - PICC placed - Lumbar MRI (01/14) --> NO acute findings - Repeat left hip MRI (01/14) - with contrast - edema throughout the hip ADDuctors and proximal queadracept - possible septic joint vs myositis - fluid collection medial to the joint Adductor is again seen, no change from 01/05 MRI - Case reviewed with Radiology (01/14) - Case reviewed with Orthopedic Surgeon (01/14). No indication for surgical intervention. - Case reviewed with ID, Dr. Carrillo (01/14). - Case discussed between Dr. Carrillo and Dr. Yoo Will obtain drainage of fluid collection 01/14/18 in IR department with possible placement of external drainage catheter - hold lovenox/coumadin - repeat INR in AM - supportive care - DVT prophylaxis (2) Alcohol withdrawal ICD Codes: F10.239 - Alcohol dependence with withdrawal, unspecified Status: Acute Plan: Scheduled Librium taper CIWA protocol (3) Hyponatremia ICD Codes: E87.1 - Hypo-osmolality and hyponatremia Status: Acute Plan: Patient does have ETOH abuse Na on admission 120 -> (01/04) 0319 130 -> (01/04) 1000 130, 132 (01/05) - (4) DM (diabetes mellitus) ICD Codes: E11.9 - Type 2 diabetes mellitus without complications Status: Chronic Plan: Diabetic diet - HgA1C 5.9 (12/04/17) - home meds on hold. not on formulary. add levemir and cont ssi. (5) Pulmonary embolism ICD Codes: I26.99 - Other pulmonary embolism without acute cor pulmonale Status: Chronic Plan: - prosthetic cardiac valves with post op PE - unclear if pt actually had PE. Could NOT find documentation for pulmonary embolism. - However per [place] records pt did have a thrombus on porcine valve following porcine valve placement in 2016. - Initial INR 1.5 upon [place] admission. do not believe that patient has been taking Coumadin as prescribed . coumadin resumed. says he was on 5mg daily (6) Hepatitis C, chronic ICD Codes: B18.2 - Chronic viral hepatitis C Status: Chronic Plan: - Pt has had a few visits with Dr. Jamal Mixon - Pt has NOT yet started treatment for Hep C. (7) HTN (hypertension) ICD Codes: I10 - Essential (primary) hypertension Status: Chronic Plan: titrate bp meds on arb. add ccb. Problem Qualifiers (1) Sepsis: Qualified Codes: A41.9 - Sepsis, unspecified organism (2) Alcohol withdrawal: Qualified Codes: F10.230 - Alcohol dependence with withdrawal, uncomplicated (3) DM (diabetes mellitus): Qualified Codes: E11.8 - Type 2 diabetes mellitus with unspecified complications; Z79.4 - termite control technician (current) use of insulin (4) Hepatitis C, chronic: Qualified Codes: B18.2 - Chronic viral hepatitis C Peter Maddox DO Jan 14, 2018 14:55
[2018-01-14] MEDS ORDERED: PHARMACY ORDERED LAB-GENT PEAK ONE (16:00)
--- NOTE | 2018-01-14 16:03 | HHI.IDPN ---
Subjective Subjective Remarks last clx sterile no fever c/o L buttock pain radiating down the leg MRI L spine showed DJD MRI w and wo c of L hip was extensively dw with Krzysztof Bullard (radiology): L deep muscele fluid collectio n anterioerly to L hip is thought to be connected to the process in L hip joint IR consulted to drain both L hip joint and the collection - will be done tomorrow (pt was not NPO today and also on Lovenox) he is ow doing ok Antibiotics IV Gentamicin stopped IV Cefazolin PO Rifampin Lines PIV with no e/o infection Past Medical History Chronic low back pain with radiculopathy Alcoholism 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 Vital Signs Date Time Temp Pulse Resp B/P (MAP) Pulse Ox O2 Delivery O2 Flow Rate FiO2 01/14/18 12:50 98.1 87 20 166/77 (106) 98 01/14/18 08:49 98.0 88 20 161/73 (102) 96 01/14/18 08:00 86 01/14/18 04:00 98.1 100 18 164/79 (107) 96 01/14/18 00:30 110 01/14/18 00:00 98.0 101 18 164/78 (106) 96 01/13/18 20:30 87 01/13/18 20:00 97.3 88 18 111/73 (86) 95 . Laboratory Tests Test 01/14/18 05:20 Creatinine 0.51 MG/DL Estimat Glomerular Filtration Rate 171 ML/MIN Imaging b Last Impressions Lumbar Spine MRI 01/14/18 0000 Signed Impressions: Service Date/Time: Sunday, January 14, 2018 12:52 - CONCLUSION: Degenerative findings of the lower lumbar spine with mild left neural foraminal narrowing at L3-4. Central canal diameter within normal limits at all levels. Con Michel MD Hip MRI 01/14/18 0000 Signed Impressions: Service Date/Time: Sunday, January 14, 2018 12:52 - CONCLUSION: Inflammatory process centered at the left hip. Diffuse synovial enhancement, joint effusion , and periarticular edema/enhancement is seen. Findings are suspicious for septic arthritis. Medial periarticular peripheral enhancing fluid collection is suspicious for abscess. Con Michel MD Chest X-Ray 01/13/18 0000 Signed Impressions: Service Date/Time: Saturday, January 13, 2018 19:36 - CONCLUSION: Right arm PICC with tip in the superior vena cava. Sukhjinder Stephen MD Hip Aspiration/Injection 01/07/18 0000 Signed Impressions: Service Date/Time: Sunday, January 07, 2018 13:16 - CONCLUSION: Uncomplicated aspiration as above. Lázaro Yoo MD Lumbar Spine CT 01/03/18 0000 Signed Impressions: Service Date/Time: Wednesday, January 03, 2018 22:13 - CONCLUSION: 1. Multiple disc bulges in the lower lumbar spine with mild encroachment on the lateral recesses and neural foramina. No acute fracture. Mild scoliosis. Mild degenerative disc disease. Mani Robison MD Abdomen/Pelvis CT 01/03/18 0000 Signed Impressions: Service Date/Time: Wednesday, January 03, 2018 22:13 - CONCLUSION: 1. Probable left hip joint effusion with some inflammatory or edematous changes in the musculature around the anterior left hip. Would be better evaluated with MRI. 2. No acute findings within the abdomen and pelvis. Multiple calcified gallstones. Small hiatal hernia. Mani Robison MD Physical Exam CONSTITUTIONAL/GENERAL: WDWN male patient, in NAD. Awake and alert. Mother at the bedside. SKIN: Warm and dry. No rash. HEAD: Normocephalic, atraumatic EYES: EOMI. Bilateral sclera anicteric ENT: No nasal drainage noted. Airway patent. MMM. No oral thrush. NECK: Trachea midline. Supple, nontender. No meningeal signs. CARDIOVASCULAR: Regular rate and rhythm. 2-3/6 holosystolic murmur 2-3 /6. Well healed median sternotomy scar RESPIRATORY/CHEST: Nonlabored. CTA bilaterally. No wheezing noted GASTROINTESTINAL: Abdomen soft, nondistended. No hepato-splenomegaly, or palpable masses. No guarding. Bowel sounds present. (+)mild tenderness to palpation LLQ. MUSCULOSKELETAL: Extremities without clubbing, cyanosis, or edema. Limited ROM secondary to pain. NEUROLOGICAL: Awake and alert. Oriented x 3. Motor and sensory grossly within normal limits. Able to move all extremities. Nonfocal. Slightly delayed but normal speech. PSYCHIATRIC: Calm and pleasant. Cooperative. Assessment & Plan Remarks HIgh grade MSSA bactermeia in a pt with prosthetic valve - source PVE (prosthetic valve endocarditis) vs secondary bactremia 2/2 septic L hip LEÓN negative, but still can not totally exclude prosthetic valve infx as a source sp L hip fluid aspiration - doubt infx (1 WBC) Repeat L hip MRI is worrisome for infection L septic arthritis with medial periarticular peripheral enhancing fluid collection is suspected L spine MRI with DJD ortho saw the pt, recommended against procecedure Recs: cont cefazolin, gent/rifampin cont gentamycin - will Rx full course for PVE if no other source confirmed PICC fu labs case dw Krzysztof Moore, Anand dw pt and his mother Roula Carrillo MD Jan 14, 2018 16:03
[2018-01-14] MEDS: TEMAZEPAM 15 MG CAP PO PRN (22:04)
[2018-01-15] VITALS (11 sets, daily range): BP systolic 131–182; BP diastolic 63–90; PULSE 59–95; RESP 18–20; TEMP 97.1–98.3; O2SAT 94–100
[2018-01-15] MEDS: ceFAZolin 2 GM PREMIX 50 ML IV SCH ×3 (05:38→21:29)
[2018-01-15] MEDS: GENTAMICIN INJ 90 MG in SODIUM CHLORIDE 0.9% INJ 100 ML IV SCH ×3 (05:38→22:04)
[2018-01-15] MEDS: ACETAMINOPHEN/HYDROcodone 325 MG/10 MG TAB PO PRN ×3 (05:40→21:29)
[2018-01-15 06:09] LABS: AUTOMATED NEUTROPHIL # 4.8 TH/MM3 (1.8-7.7); BASOPHIL # 0.1 TH/MM3 (0-0.2); BASOPHIL % 0.8 % (0.0-2.0); EOSINOPHIL # 0.1 TH/MM3 (0-0.4); EOSINOPHIL % 1.4 % (0.0-4.0); HEMATOCRIT 35.3 % (39.0-51.0); HEMOGLOBIN 12.2 GM/DL (13.0-17.0); LYMPH % 22.4 % (9.0-44.0); LYMPHOCYTE # 1.7 TH/MM3 (1.0-4.8); MEAN CELL VOLUME 90.5 FL (80.0-100.0); MEAN CORPUSCULAR HEMOGLOBIN 31.2 PG (27.0-34.0); MEAN CORPUSCULAR HGB CONC 34.5 % (32.0-36.0); MEAN PLATELET VOLUME 7.5 FL (7.0-11.0); MONOCYTE # 0.9 TH/MM3 (0-0.9); NEUT % 63.4 % (16.0-70.0); PLATELET COUNT 483 TH/MM3 (150-450); RED CELL DISTRIBUTION WIDTH 13.2 % (11.6-17.2); WHITE BLOOD COUNT 7.5 TH/MM3 (4.0-11.0)
[2018-01-15 06:15] LABS: INTERNATIONAL NORMALIZED RATIO 1.4 RATIO; PROTHROMBIN TIME - PATIENT 13.9 SEC (9.8-11.6)
[2018-01-15 06:40] LABS: BICARBONATE 26.8 MEQ/L (21.0-32.0); CALCIUM 8.9 MG/DL (8.5-10.1); CREATININE 0.68 MG/DL (0.60-1.30); MAGNESIUM 1.9 MG/DL (1.5-2.5)
[2018-01-15] MEDS: FLUoxetine HCL 20 MG CAP PO SCH (07:33)
[2018-01-15] MEDS: PRAVASTATIN SOD 40 MG TAB PO SCH (07:33)
[2018-01-15] MEDS: RIFAMPIN 150 MG CAP PO SCH ×2 (07:39→21:29)
[2018-01-15] MEDS: LOSARTAN 50 MG TAB PO SCH (07:40)
[2018-01-15] MEDS: amLODIPine BESYLATE 5 MG TAB PO SCH (07:40)
[2018-01-15] MEDS: INSULIN ASPART SUPPLEMENTAL SCALE SQ SCH ×4 (07:40→21:41)
[2018-01-15] MEDS: DIGOXIN 0.25 MG TAB PO SCH (07:40)
[2018-01-15] MEDS: ASPIRIN EC 81 MG TABEC PO SCH (07:40)
[2018-01-15] MEDS ORDERED: D5-1/2 NS + KCL 10 MEQ INJ 1,000 ML IV SCH (10:45)
[2018-01-15] MEDS ORDERED: fentaNYL CITRATE 250 MCG/5 ML AMP ONE (13:24)
[2018-01-15] MEDS ORDERED: MIDAZOLAM HCL 2 MG/2 ML VIAL ONE (14:00)
[2018-01-15] MEDS ORDERED: D5-1/2 NS + KCL 20 MEQ INJ 1,000 ML IV SCH (14:00)
[2018-01-15] MEDS ORDERED: IOHEXOL 350 MG/ML 10 ML VIAL (for RAD DIAG) IVCONTRAST ONE (15:48)
[2018-01-15] MEDS ORDERED: LIDOCAINE HCL 1% 10 ML VIAL SQ ONE (15:48)
--- NOTE | 2018-01-15 15:56 | HHI.PR ---
Subjective Remarks No new complaints. Objective Vitals Vital Signs Date Time Temp Pulse Resp B/P (MAP) Pulse Ox O2 Delivery O2 Flow Rate FiO2 01/15/18 15:15 98.0 85 18 131/66 (87) 95 01/15/18 12:05 98.1 89 20 138/73 (94) 98 01/15/18 12:00 87 01/15/18 08:03 98.3 84 20 136/68 (90) 99 01/15/18 08:00 82 01/15/18 04:00 98.3 81 18 141/68 (92) 98 01/15/18 00:30 68 01/15/18 00:00 97.5 77 18 179/81 (113) 99 01/14/18 20:30 93 01/14/18 20:27 98.0 95 18 158/78 (104) 98 01/14/18 16:00 98.0 86 20 163/78 (106) 98 Result Diagram: 01/15/18 0545 01/15/18 0545 Imaging Last Impressions Lumbar Spine MRI 01/14/18 0000 Signed Impressions: Service Date/Time: Sunday, January 14, 2018 12:52 - CONCLUSION: Degenerative findings of the lower lumbar spine with mild left neural foraminal narrowing at L3-4. Central canal diameter within normal limits at all levels. Con Michel MD Hip MRI 01/14/18 0000 Signed Impressions: Service Date/Time: Sunday, January 14, 2018 12:52 - CONCLUSION: Inflammatory process centered at the left hip. Diffuse synovial enhancement, joint effusion , and periarticular edema/enhancement is seen. Findings are suspicious for septic arthritis. Medial periarticular peripheral enhancing fluid collection is suspicious for abscess. Con Michel MD Chest X-Ray 01/13/18 0000 Signed Impressions: Service Date/Time: Saturday, January 13, 2018 19:36 - CONCLUSION: Right arm PICC with tip in the superior vena cava. Sukhjinder Stephen MD Hip Aspiration/Injection 01/07/18 0000 Signed Impressions: Service Date/Time: Sunday, January 07, 2018 13:16 - CONCLUSION: Uncomplicated aspiration as above. Lázaro Yoo MD Lumbar Spine CT 01/03/18 0000 Signed Impressions: Service Date/Time: Wednesday, January 03, 2018 22:13 - CONCLUSION: 1. Multiple disc bulges in the lower lumbar spine with mild encroachment on the lateral recesses and neural foramina. No acute fracture. Mild scoliosis. Mild degenerative disc disease. Mani Robison MD Abdomen/Pelvis CT 01/03/18 0000 Signed Impressions: Service Date/Time: Wednesday, January 03, 2018 22:13 - CONCLUSION: 1. Probable left hip joint effusion with some inflammatory or edematous changes in the musculature around the anterior left hip. Would be better evaluated with MRI. 2. No acute findings within the abdomen and pelvis. Multiple calcified gallstones. Small hiatal hernia. Mani Robison MD Objective Remarks GENERAL: This is a well-nourished, well-developed patient, in no apparent distress. CARDIOVASCULAR: Regular rate and rhythm without murmurs, gallops, or rubs. RESPIRATORY: Clear to auscultation. Breath sounds equal bilaterally. No wheezes , rales, or rhonchi. GASTROINTESTINAL: Abdomen soft, non-tender, nondistended. Normal active bowel sounds MUSCULOSKELETAL: pain with passive external rotation of left hip NEURO: Alert & Oriented x4 to person, place, time, situation. 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 Tricuspid and pulmonary valves - echocardiogram (01/05/18). Hyperdynamic LV. EF 65-70%. No overt endocarditis identified. - CXR (01/03) Cardiomegaly. No acute findings CT abdomen pelvis (01/03) 1. Probable left hip joint effusion with some inflammatory or edematous changes in the musculature around the anterior left hip. Would be better evaluated with MRI. 2. No acute findings within the abdomen and pelvis. Multiple calcified gallstones. Small hiatal hernia. MRI Left Hip (01/05) probable hematoma at obturator internus and obturator externus. NO joint effusion - Pt seen by Gastroenterology. EGD (01/06). mild gastritis and esophagitis. no varices -IR for aspiration of fluid in left hip joint...not musculature on 01/07..ngtd -LEÓN 01/08..no obvious vegetations -Blood cx 01/03 mssa -Blood cx 01/05 mssa -Blood cx 01/08 ngtd x 5 days - Vancomycin (01/03 - 01/04) - Cefepime (01/04) - cont cefazolin, rifampin per ID. gent resumed - PICC placed - Lumbar MRI (01/14) --> NO acute findings - Repeat left hip MRI (01/14) - with contrast - edema throughout the hip ADDuctors and proximal queadracept - possible septic joint vs myositis - fluid collection medial to the joint Adductor is again seen, no change from 01/05 MRI - Case reviewed with Radiology (01/14) - Case reviewed with Orthopedic Surgeon (01/14). No indication for surgical intervention. - Case reviewed with ID, Dr. Carrillo (01/14). - Case discussed between Dr. Carrillo and Dr. Yoo (01/14) - CT guided drainage of fluid collection attempted 01/15. 3-4ml of bloody fluid aspirated. Studies sent for culture. - resume lovenox/coumadin. Could pt be changed to a novel anticoagulant. Will try to d/w pt's [employer]/CTS at [facility]. - repeat INR in AM - supportive care - DVT prophylaxis - follow culture results from (01/15) aspiration. - Will need to further discuss case with Infectious Disease. - anticipate d/c to home with [facility] in next 2-3 days. (2) Alcohol withdrawal ICD Codes: F10.239 - Alcohol dependence with withdrawal, unspecified Status: Acute Plan: Scheduled Librium taper CIWA protocol (3) Hyponatremia ICD Codes: E87.1 - Hypo-osmolality and hyponatremia Status: Acute Plan: Patient does have ETOH abuse Na on admission 120 -> (01/04) 0319 130 -> (01/04) 1000 130, 132 (01/05) - (4) DM (diabetes mellitus) ICD Codes: E11.9 - Type 2 diabetes mellitus without complications Status: Chronic Plan: Diabetic diet - HgA1C 5.9 (12/04/17) - home meds on hold. not on formulary. add levemir and cont ssi. (5) Pulmonary embolism ICD Codes: I26.99 - Other pulmonary embolism without acute cor pulmonale Status: Chronic Plan: - prosthetic cardiac valves with post op PE - unclear if pt actually had PE. Could NOT find documentation for pulmonary embolism. - However per [place] records pt did have a thrombus on porcine valve following porcine valve placement in 2016. - Initial INR 1.5 upon [place] admission. do not believe that patient has been taking Coumadin as prescribed . coumadin resumed. says he was on 5mg daily (6) Hepatitis C, chronic ICD Codes: B18.2 - Chronic viral hepatitis C Status: Chronic Plan: - Pt has had a few visits with Dr. Jamal Mixon - Pt has NOT yet started treatment for Hep C. (7) HTN (hypertension) ICD Codes: I10 - Essential (primary) hypertension Status: Chronic Plan: titrate bp meds on arb. add ccb. 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
--- NOTE | 2018-01-15 16:02 | RADRPT ---
EXAM DATE/TIME: 01/15/2018 14:23 [place] COMPARISON: No previous studies available for comparison. INDICATIONS : Left hip fluid collection. SEDATION TIME: 45 minutes MEDICATION(S): 1.) 2 mg midazolam (Versed) IV 2.) 250 mcg fentanyl (Sublimaze) IV DEVICE(S): 1.) 18 gauge Nava blunt needle Total volume of 4 cc of cloudy, red fluid was removed. MEDICAL HISTORY : Hepatitis C. Congestive heart failure. Hypertension. Tetralogy of Fallot, seizures, diabetes. SURGICAL HISTORY : CABG ENCOUNTER: Initial ACUITY: 2 weeks PAIN SCORE: 4/10 LOCATION: Left groin/medial hip PROCEDURE : CT guided left groin/medial hip aspiration. The risks, benefits and alternatives to the procedure were explained and verbal and written consent w as obtained. Using automated exposure control and adjustment of the mA and/or kV according to patien t size, radiation dose was kept as low as reasonably achievable to obtain optimal diagnostic quality images. The site was prepped in sterile fashion. Full sterile technique was used, including cap, ma sk, sterile gloves and gown and a large sterile sheet. Hand hygiene and 2% chlorhexidine and/or beta dine/alcohol prep was utilized per protocol for cutaneous antisepsis. The skin and subcutaneous tiss ues were infiltrated with local anesthetic solution. DICOM format image data is available electronic ally for review and comparison. An 18 gauge Nava needle was passed into the left medial hip/groin fluid collection. Approximately 3 cc of serous fluid was aspirated and sent for culture and sensitivity. Since this did not appear to represent pus, no drain was left in this collection. The collection decreased in overall size status post aspiration. CONCLUSION: Uncomplicated left medial hip/groin fluid collection aspiration as above. Michael Cooley MD on January 15, 2018 at 15:57 Board Certified Radiologist. This report was verified electronically.
[2018-01-15] MEDS ORDERED: WARFARIN SOD 5 MG TAB PO SCH (16:30)
[2018-01-15] MEDS: MORPHINE SULFATE 4 MG/ML INJ IV PUSH PRN ×2 (17:54→22:49)
[2018-01-15] MEDS: INSULIN DETEMIR 100 UNITS/ML VIAL SQ SCH (21:42)
[2018-01-15] MEDS: TEMAZEPAM 15 MG CAP PO PRN (22:04)
[2018-01-16] VITALS (11 sets, daily range): BP systolic 130–176; BP diastolic 65–84; PULSE 81–102; RESP 16–20; TEMP 97.5–98.5; O2SAT 96–100
[2018-01-16] MEDS: ACETAMINOPHEN/HYDROcodone 325 MG/10 MG TAB PO PRN ×4 (02:24→19:34)
[2018-01-16] MEDS: MORPHINE SULFATE 4 MG/ML INJ IV PUSH PRN ×4 (03:31→21:20)
[2018-01-16] MEDS: cloNIDine HCL 0.1 MG TAB PO PRN (04:19)
[2018-01-16] MEDS: ceFAZolin 2 GM PREMIX 50 ML IV SCH ×3 (06:19→21:19)
[2018-01-16] MEDS: GENTAMICIN INJ 90 MG in SODIUM CHLORIDE 0.9% INJ 100 ML IV SCH ×3 (06:20→22:46)
[2018-01-16 07:04] LABS: INTERNATIONAL NORMALIZED RATIO 1.4 RATIO; PROTHROMBIN TIME - PATIENT 14.3 SEC (9.8-11.6)
--- NOTE | 2018-01-16 07:47 | PD.ORT.PN ---
Subjective Subjective Remarks Patient resting comfortably. States his pain feels improved since IR drained the fluid collection. Objective Vitals Vital Signs Date Time Temp Pulse Resp B/P (MAP) Pulse Ox O2 Delivery O2 Flow Rate FiO2 01/16/18 04:46 97.8 92 18 168/81 (110) 96 01/16/18 04:00 90 01/16/18 00:53 98.5 99 18 158/81 (106) 100 01/16/18 00:00 102 01/15/18 20:44 97.6 89 18 182/90 (120) 100 01/15/18 20:00 95 01/15/18 15:45 86 18 138/87 (104) 98 01/15/18 15:15 98.0 85 18 131/66 (87) 95 01/15/18 12:05 98.1 89 20 138/73 (94) 98 01/15/18 12:00 87 01/15/18 08:03 98.3 84 20 136/68 (90) 99 01/15/18 08:00 82 I/O 01/15/18 01/15/18 01/15/18 01/16/18 01/16/18 01/16/18 07:00 15:00 23:00 07:00 15:00 23:00 Intake Total 600 ml 300 ml Balance 600 ml 300 ml Intake Oral 600 ml IV Total 300 ml # Voids 3 # Bowel Movements 1 Result Diagram: 01/15/18 0545 01/15/18 0545 Other Results Laboratory Tests Test 01/16/18 06:30 Prothromb Time International Ratio 1.4 RATIO Prothrombin Time 14.3 SEC (9.8-11.6) Imaging Last 48 hours Impressions Needle Aspiration CT 01/15/18 0000 Signed Impressions: Service Date/Time: Monday, January 15, 2018 14:23 - CONCLUSION: Uncomplicated left medial hip/groin fluid collection aspiration as above. Michael Cooley MD Objective Remarks Awake, alert. No acute distress. Left lower extremity: Patient actively uses his left leg to transition positions in bed. He has full active range of motion of his hip with minimal discomfort. 5/5 strength IP, quads, hamstrings, gastroc, TA, EHL and FHL. Mild tenderness along the abductors. Sensation intact. Negative Homans. Assessment & Plan Assessment and Plan 52-year-old gentleman with left lower extremity pain with medial groin/adductor fluid collection Patient underwent left hip aspiration several days ago which still has no growth to date. Yesterday, patient underwent aspiration of left medial groin/ abductor fluid collection which is also demonstrating no growth currently. Per interventional radiology, this appeared to be more serous and bloody and therefore they did not leave a drain. At this time, I am not convinced that surgical intervention is in his best interest. Clinically, patient feels improved and states he is able to do more than when he first arrived. He states he is not interested in surgery for his left hip. Ami Lauren MD Jan 16, 2018 07:47
[2018-01-16] MEDS ORDERED: ENOXAPARIN SODIUM 40 MG/0.4 ML SYRINGE SQ SCH (08:00)
[2018-01-16] MEDS: FLUoxetine HCL 20 MG CAP PO SCH (08:16)
[2018-01-16] MEDS: ASPIRIN EC 81 MG TABEC PO SCH (08:16)
[2018-01-16] MEDS: amLODIPine BESYLATE 5 MG TAB PO SCH (08:16)
[2018-01-16] MEDS: PRAVASTATIN SOD 40 MG TAB PO SCH (08:17)
[2018-01-16] MEDS: DIGOXIN 0.25 MG TAB PO SCH (08:17)
[2018-01-16] MEDS: RIFAMPIN 150 MG CAP PO SCH ×2 (08:17→21:19)
[2018-01-16] MEDS: LOSARTAN 50 MG TAB PO SCH (08:17)
[2018-01-16] MEDS: INSULIN ASPART SUPPLEMENTAL SCALE SQ SCH ×3 (08:18→21:21)
[2018-01-16] MEDS ORDERED: XARE20TA PO (15:41)
--- NOTE | 2018-01-16 16:06 | HHI.PR ---
Subjective Remarks Patient reports feeling better each day Patient c/o itching rash on buttock Objective Vitals Vital Signs Date Time Temp Pulse Resp B/P (MAP) Pulse Ox O2 Delivery O2 Flow Rate FiO2 01/16/18 15:24 97.7 84 20 158/81 (106) 100 01/16/18 11:26 98.2 87 20 160/77 (104) 100 01/16/18 08:29 18 01/16/18 07:55 97.5 81 20 130/65 (86) 98 01/16/18 04:46 97.8 92 18 168/81 (110) 96 01/16/18 04:00 90 01/16/18 00:53 98.5 99 18 158/81 (106) 100 01/16/18 00:00 102 01/15/18 20:44 97.6 89 18 182/90 (120) 100 01/15/18 20:00 95 01/16/18 01/16/18 01/17/18 15:00 23:00 07:00 Intake Total 720 ml Balance 720 ml Intake Oral 720 ml # Voids 3 # Bowel Movements 0 Result Diagram: 01/15/18 0545 01/15/18 0545 Other Results Laboratory Tests Test 01/14/18 05:20 01/14/18 14:45 01/14/18 16:45 01/15/18 05:45 Creatinine 0.51 MG/DL 0.68 MG/DL Estimat Glomerular Filtration Rate 171 ML/MIN 122 ML/MIN Gentamicin Level Trough 0.6 MCG/ML Gentamicin Level Peak 3.1 MCG/ML White Blood Count 7.5 TH/MM3 Red Blood Count 3.90 MIL/MM3 Hemoglobin 12.2 GM/DL Hematocrit 35.3 % Mean Corpuscular Volume 90.5 FL Mean Corpuscular Hemoglobin 31.2 PG Mean Corpuscular Hemoglobin Concent 34.5 % Red Cell Distribution Width 13.2 % Platelet Count 483 TH/MM3 Mean Platelet Volume 7.5 FL Neutrophils (%) (Auto) 63.4 % Lymphocytes (%) (Auto) 22.4 % Monocytes (%) (Auto) 12.0 % Eosinophils (%) (Auto) 1.4 % Basophils (%) (Auto) 0.8 % Neutrophils # (Auto) 4.8 TH/MM3 Lymphocytes # (Auto) 1.7 TH/MM3 Monocytes # (Auto) 0.9 TH/MM3 Eosinophils # (Auto) 0.1 TH/MM3 Basophils # (Auto) 0.1 TH/MM3 CBC Comment DIFF FINAL Differential Comment Prothrombin Time 13.9 SEC Prothromb Time International Ratio 1.4 RATIO Blood Urea Nitrogen 9 MG/DL Random Glucose 106 MG/DL Calcium Level 8.9 MG/DL Magnesium Level 1.9 MG/DL Sodium Level 134 MEQ/L Potassium Level 4.6 MEQ/L Chloride Level 101 MEQ/L Carbon Dioxide Level 26.8 MEQ/L Anion Gap 6 MEQ/L Test 01/16/18 06:30 Prothrombin Time 14.3 SEC Prothromb Time International Ratio 1.4 RATIO Imaging Last Impressions Lumbar Spine MRI 01/14/18 0000 Signed Impressions: Service Date/Time: Sunday, January 14, 2018 12:52 - CONCLUSION: Degenerative findings of the lower lumbar spine with mild left neural foraminal narrowing at L3-4. Central canal diameter within normal limits at all levels. Con Michel MD Hip MRI 01/14/18 0000 Signed Impressions: Service Date/Time: Sunday, January 14, 2018 12:52 - CONCLUSION: Inflammatory process centered at the left hip. Diffuse synovial enhancement, joint effusion , and periarticular edema/enhancement is seen. Findings are suspicious for septic arthritis. Medial periarticular peripheral enhancing fluid collection is suspicious for abscess. Con Michel MD Chest X-Ray 01/13/18 0000 Signed Impressions: Service Date/Time: Saturday, January 13, 2018 19:36 - CONCLUSION: Right arm PICC with tip in the superior vena cava. Sukhjinder Stephen MD Hip Aspiration/Injection 01/07/18 0000 Signed Impressions: Service Date/Time: Sunday, January 07, 2018 13:16 - CONCLUSION: Uncomplicated aspiration as above. Lázaro Yoo MD Lumbar Spine CT 01/03/18 0000 Signed Impressions: Service Date/Time: Wednesday, January 03, 2018 22:13 - CONCLUSION: 1. Multiple disc bulges in the lower lumbar spine with mild encroachment on the lateral recesses and neural foramina. No acute fracture. Mild scoliosis. Mild degenerative disc disease. Mani Robison MD Abdomen/Pelvis CT 01/03/18 0000 Signed Impressions: Service Date/Time: Tom, January 03, 2018 22:13 - CONCLUSION: 1. Probable left hip joint effusion with some inflammatory or edematous changes in the musculature around the anterior left hip. Would be better evaluated with MRI. 2. No acute findings within the abdomen and pelvis. Multiple calcified gallstones. Small hiatal hernia. Mani Robison MD Objective Remarks GENERAL: This is a well-nourished, well-developed patient, in no apparent distress. CARDIOVASCULAR: Regular rate and rhythm RESPIRATORY: Clear to auscultation. Breath sounds equal bilaterally. GASTROINTESTINAL: Abdomen soft, non-tender, nondistended. Normal active bowel sounds MUSCULOSKELETAL: pain with passive external rotation of left hip - improving NEURO: Alert & Oriented x4 to person, place, time, situation. 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 Tricuspid and pulmonary valves - echocardiogram (01/05/18). Hyperdynamic LV. EF 65-70%. No overt endocarditis identified. - CXR (01/03) Cardiomegaly. No acute findings CT abdomen pelvis (01/03) 1. Probable left hip joint effusion with some inflammatory or edematous changes in the musculature around the anterior left hip. Would be better evaluated with MRI. 2. No acute findings within the abdomen and pelvis. Multiple calcified gallstones. Small hiatal hernia. MRI Left Hip (01/05) probable hematoma at obturator internus and obturator externus. NO joint effusion - Pt seen by Gastroenterology. EGD (01/06). mild gastritis and esophagitis. no varices -IR for aspiration of fluid in left hip joint...not musculature on 01/07..ngtd -LEÓN 01/08..no obvious vegetations -Blood cx 01/03 mssa -Blood cx 01/05 mssa -Blood cx 01/08 ngtd x 5 days - Vancomycin (01/03 - 01/04) - Cefepime (01/04) - cont cefazolin, rifampin per ID. gent resumed - PICC placed - Lumbar MRI (01/14) --> NO acute findings - Repeat left hip MRI (01/14) - with contrast - edema throughout the hip ADDuctors and proximal quadriceps - possible septic joint vs myositis - fluid collection medial to the joint Adductor is again seen, no change from 01/05 MRI - Case reviewed with Radiology (01/14) - Case reviewed with Orthopedic Surgeon (01/14). No indication for surgical intervention. - Case reviewed with ID, Dr. Carrillo (01/14). - Case discussed between Dr. Carrillo and Dr. Yoo (01/14) - CT guided drainage of fluid collection attempted 01/15. 3-4ml of bloody fluid aspirated. Studies sent for culture. - resume lovenox/coumadin. Could pt be changed to a novel anticoagulant. 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. - repeat INR in AM - supportive care - DVT prophylaxis - follow culture results from (01/15) aspiration. - awaiting final DC recommendations from ID - Plan to DC to SNF pending ID DC recommendations (2) Alcohol withdrawal ICD Codes: F10.239 - Alcohol dependence with withdrawal, unspecified Status: Acute Plan: Scheduled Librium taper - completed CIWA protocol (3) Hyponatremia ICD Codes: E87.1 - Hypo-osmolality and hyponatremia Status: Acute Plan: Patient does have ETOH abuse Na on admission 120 -> (01/04) 0319 130 -> (01/04) 1000 130, 132 (01/05), 134 (01/15 ) (4) DM (diabetes mellitus) ICD Codes: E11.9 - Type 2 diabetes mellitus without complications Status: Chronic Plan: Diabetic diet - HgA1C 5.9 (12/04/17) - home meds on hold. not on formulary. add levemir and cont ssi. (5) Pulmonary embolism ICD Codes: I26.99 - Other pulmonary embolism without acute cor pulmonale Status: Chronic Plan: - prosthetic cardiac valves with post op PE - unclear if pt actually had PE. Could NOT find documentation for pulmonary embolism. - However per [place] records pt did have a thrombus on porcine valve following porcine valve placement in 2015. - Initial INR 1.5 upon [place] admission. do not believe that patient has been taking Coumadin as prescribed - 01/16/18 Discussed the case with Nunu COLIN at [facility] regarding changing patient to Xarelto as his patient does not seem to be complaint with Coumadin and INR is often not therapeutic. Nunu COLIN agrees with changing patient to Xarelto. Patient has follow up at [facility] in 6 months. Encouraged patient to follow up sooner to address the need of continued anticoagulation (6) Hepatitis C, chronic ICD Codes: B18.2 - Chronic viral hepatitis C Status: Chronic Plan: - Pt has had a few visits with Dr. Jamal Mixon - Pt has NOT yet started treatment for Hep C. (7) HTN (hypertension) ICD Codes: I10 - Essential (primary) hypertension Status: Chronic Plan: titrate bp meds Continue patient's home Losartan 100 mg PO daily add Norvasc 5 mg PO daily (8) Rash ICD Codes: R21 - Rash and other nonspecific skin eruption Plan: Rash on buttock consistent with saloni Patient reports rash with itching on bilateral buttock buttock examined barrier cream present difficult to fully see erythema noted with Stalite rash noted Diflucan 100 mg PO daily for 5 days with nystatin powder Assessment and Plan Patient examined. Assessment and plan formulated with Carmen Sanchez PA-C. I agree with the above. Problem Qualifiers (1) Sepsis: Qualified Codes: A41.9 - Sepsis, unspecified organism (2) Alcohol withdrawal: Qualified Codes: F10.230 - Alcohol dependence with withdrawal, uncomplicated (3) DM (diabetes mellitus): Qualified Codes: E11.8 - Type 2 diabetes mellitus with unspecified complications; Z79.4 - regional intermodal truck driver (current) use of insulin (4) Hepatitis C, chronic: Qualified Codes: B18.2 - Chronic viral hepatitis C Carmen Sanchez Jan 16, 2018 16:06 Peter Maddox DO Jan 20, 2018 05:29
--- NOTE | 2018-01-16 19:00 | HHI.IDPN ---
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 Vital Signs Date Time Temp Pulse Resp B/P (MAP) Pulse Ox O2 Delivery O2 Flow Rate FiO2 01/16/18 15:24 97.7 84 20 158/81 (106) 100 01/16/18 11:26 98.2 87 20 160/77 (104) 100 01/16/18 08:29 18 01/16/18 07:55 97.5 81 20 130/65 (86) 98 01/16/18 04:46 97.8 92 18 168/81 (110) 96 01/16/18 04:00 90 01/16/18 00:53 98.5 99 18 158/81 (106) 100 01/16/18 00:00 102 01/15/18 20:44 97.6 89 18 182/90 (120) 100 01/15/18 20:00 95 01/16/18 01/16/18 01/17/18 15:00 23:00 07:00 Intake Total 720 ml Balance 720 ml Intake Oral 720 ml # Voids 3 # Bowel Movements 0 . Laboratory Tests Test 01/15/18 05:45 White Blood Count 7.5 TH/MM3 Red Blood Count 3.90 MIL/MM3 Hemoglobin 12.2 GM/DL Hematocrit 35.3 % Mean Corpuscular Volume 90.5 FL Mean Corpuscular Hemoglobin 31.2 PG Mean Corpuscular Hemoglobin Concent 34.5 % Red Cell Distribution Width 13.2 % Platelet Count 483 TH/MM3 Mean Platelet Volume 7.5 FL Neutrophils (%) (Auto) 63.4 % Lymphocytes (%) (Auto) 22.4 % Monocytes (%) (Auto) 12.0 % Eosinophils (%) (Auto) 1.4 % Basophils (%) (Auto) 0.8 % Neutrophils # (Auto) 4.8 TH/MM3 Lymphocytes # (Auto) 1.7 TH/MM3 Monocytes # (Auto) 0.9 TH/MM3 Eosinophils # (Auto) 0.1 TH/MM3 Basophils # (Auto) 0.1 TH/MM3 CBC Comment DIFF FINAL Differential Comment Laboratory Tests Test 01/15/18 05:45 Blood Urea Nitrogen 9 MG/DL Creatinine 0.68 MG/DL Random Glucose 106 MG/DL Calcium Level 8.9 MG/DL Magnesium Level 1.9 MG/DL Sodium Level 134 MEQ/L Potassium Level 4.6 MEQ/L Chloride Level 101 MEQ/L Carbon Dioxide Level 26.8 MEQ/L Anion Gap 6 MEQ/L Estimat Glomerular Filtration Rate 122 ML/MIN Microbiology Date/Time Source Procedure Growth Status 01/15/18 14:45 Fluid Other Gram Stain - Final Resulted 01/15/18 14:45 Fluid Other Body Fluid Culture - Preliminary NO GROWTH IN 24 HOURS. Resulted Imaging Last Impressions Needle Aspiration CT 01/15/18 0000 Signed Impressions: Service Date/Time: Monday, January 15, 2018 14:23 - CONCLUSION: Uncomplicated left medial hip/groin fluid collection aspiration as above. Michael Cooley MD Lumbar Spine MRI 01/14/18 0000 Signed Impressions: Service Date/Time: Sunday, January 14, 2018 12:52 - CONCLUSION: Degenerative findings of the lower lumbar spine with mild left neural foraminal narrowing at L3-4. Central canal diameter within normal limits at all levels. Con Michel MD Hip MRI 01/14/18 0000 Signed Impressions: Service Date/Time: Sunday, January 14, 2018 12:52 - CONCLUSION: Inflammatory process centered at the left hip. Diffuse synovial enhancement, joint effusion , and periarticular edema/enhancement is seen. Findings are suspicious for septic arthritis. Medial periarticular peripheral enhancing fluid collection is suspicious for abscess. Con Michel MD Chest X-Ray 01/13/18 0000 Signed Impressions: Service Date/Time: Saturday, January 13, 2018 19:36 - CONCLUSION: Right arm PICC with tip in the superior vena cava. Sukhjinder Stephen MD Hip Aspiration/Injection 01/07/18 0000 Signed Impressions: Service Date/Time: Sunday, January 07, 2018 13:16 - CONCLUSION: Uncomplicated aspiration as above. Lázaro Yoo MD Lumbar Spine CT 01/03/18 0000 Signed Impressions: Service Date/Time: Wednesday, January 03, 2018 22:13 - CONCLUSION: 1. Multiple disc bulges in the lower lumbar spine with mild encroachment on the lateral recesses and neural foramina. No acute fracture. Mild scoliosis. Mild degenerative disc disease. Mani Robison MD Abdomen/Pelvis CT 01/03/18 0000 Signed Impressions: Service Date/Time: Wednesday, January 03, 2018 22:13 - CONCLUSION: 1. Probable left hip joint effusion with some inflammatory or edematous changes in the musculature around the anterior left hip. Would be better evaluated with MRI. 2. No acute findings within the abdomen and pelvis. Multiple calcified gallstones. Small hiatal hernia. Mani Robison MD Physical Exam CONSTITUTIONAL/GENERAL: WDWN male patient, in NAD. Awake and alert. Mother at the bedside. SKIN: Warm and dry. No rash. HEAD: Normocephalic, atraumatic EYES: EOMI. Bilateral sclera anicteric ENT: No nasal drainage noted. Airway patent. MMM. No oral thrush. NECK: Trachea midline. Supple, nontender. No meningeal signs. CARDIOVASCULAR: Regular rate and rhythm. 2-3/6 holosystolic murmur 2-3 /6. Well healed median sternotomy scar RESPIRATORY/CHEST: Nonlabored. CTA bilaterally. No wheezing noted GASTROINTESTINAL: Abdomen soft, nondistended. No hepato-splenomegaly, or palpable masses. No guarding. Bowel sounds present. (+)mild tenderness to palpation LLQ. MUSCULOSKELETAL: Extremities without clubbing, cyanosis, or edema. Limited ROM secondary to pain. NEUROLOGICAL: Awake and alert. Oriented x 3. Motor and sensory grossly within normal limits. Able to move all extremities. Nonfocal. Slightly delayed but normal speech. PSYCHIATRIC: Calm and pleasant. Cooperative. Assessment & Plan Remarks HIgh grade MSSA bactermeia in a pt with prosthetic valve - source PVE (prosthetic valve endocarditis) vs secondary bactremia 2/2 septic L hip LEÓN negative, but still can not totally exclude prosthetic valve infx as a source sp L hip fluid aspiration - doubt infx (1 WBC) Repeat L hip MRI is worrisome for infection L septic arthritis with medial periarticular peripheral enhancing fluid collection is suspected L spine MRI with DJD ortho saw the pt, recommended against procecedure Recs: cont cefazolin, gent/rifampin cont gentamycin x 2 weeks total - will Rx full course for PVE if no other source confirmed PICC fu labs case dw Dr Tan cloud pt and his mother OK to dc from ID standpoint Roula Carrillo MD Jan 16, 2018 19:00
[2018-01-16] MEDS: NYSTATIN 100,000 U/GM PWD 15 GM BTL TOPICAL SCH (21:18)
[2018-01-16] MEDS: INSULIN DETEMIR 100 UNITS/ML VIAL SQ SCH (21:22)
[2018-01-17] VITALS: BP_SYST 160; BP_SYST 179; BP_DIAS 68; BP_DIAS 89; PULSE 82; PULSE 95; RESP 14; RESP 16; TEMP 97.1; TEMP 97.6; O2SAT 97; O2SAT 99
[2018-01-17 00:32] VITALS: PULSE 101
[2018-01-17] MEDS: cloNIDine HCL 0.1 MG TAB PO PRN (01:25)
[2018-01-17 02:08] VITALS: BP 179/84; PULSE 88; RESP 14
[2018-01-17] MEDS: ACETAMINOPHEN/HYDROcodone 325 MG/10 MG TAB PO PRN ×2 (02:10→08:51)
[2018-01-17] MEDS: ceFAZolin 2 GM PREMIX 50 ML IV SCH ×2 (05:25→14:58)
[2018-01-17] MEDS: MORPHINE SULFATE 4 MG/ML INJ IV PUSH PRN ×2 (05:26→09:58)
[2018-01-17] MEDS: NYSTATIN 100,000 U/GM PWD 15 GM BTL TOPICAL SCH ×2 (05:35→14:00)
[2018-01-17] MEDS: GENTAMICIN INJ 90 MG in SODIUM CHLORIDE 0.9% INJ 100 ML IV SCH ×2 (06:01→15:27)
[2018-01-17 06:16] LABS: CREATININE 0.72 MG/DL (0.60-1.30)
[2018-01-17 08:00] VITALS: BP 181/88; PULSE 83; PULSE 88; RESP 20; TEMP 99.1; O2SAT 98
[2018-01-17] MEDS: DIGOXIN 0.25 MG TAB PO SCH (08:48)
[2018-01-17] MEDS: ASPIRIN EC 81 MG TABEC PO SCH (08:48)
[2018-01-17] MEDS: PRAVASTATIN SOD 40 MG TAB PO SCH (08:48)
[2018-01-17] MEDS: FLUoxetine HCL 20 MG CAP PO SCH (08:50)
[2018-01-17] MEDS: RIFAMPIN 150 MG CAP PO SCH (08:50)
[2018-01-17] MEDS: LOSARTAN 50 MG TAB PO SCH (08:56)
[2018-01-17] MEDS: INSULIN ASPART SUPPLEMENTAL SCALE SQ SCH ×2 (08:57→13:22)
[2018-01-17] MEDS ORDERED: FLUCONAZOLE 100 MG TAB PO SCH (09:00)
[2018-01-17] MEDS ORDERED: RIVAROXABAN 20 MG TAB PO SCH (09:00)
[2018-01-17] MEDS ORDERED: NIFE30TA61 PO (09:32)
[2018-01-17] MEDS ORDERED: NOVOLOGP2 SQ (09:35)
[2018-01-17] MEDS ORDERED: DIFL100T PO (09:35)
[2018-01-17] MEDS ORDERED: Nystatin Powder TOPICAL (09:35)
[2018-01-17] MEDS ORDERED: LEVEMIR SQ (09:36)
[2018-01-17 10:03] VITALS: RESP 17
--- NOTE | 2018-01-17 10:19 | HHI.DCPOC ---
Discharge Care Plan Diagnosis: (1) Sepsis (2) Alcohol withdrawal (3) Hyponatremia (4) DM (diabetes mellitus) (5) Pulmonary embolism (6) Hepatitis C, chronic (7) HTN (hypertension) (8) Rash Goals to Promote Your Health * To prevent worsening of your condition and complications * To maintain your health at the optimal level Directions to Meet Your Goals Take your medications as prescribed Follow your dietary instruction Follow activity as directed Keep your appointments as scheduled Take your immunizations and boosters as scheduled If your symptoms worsen call your PCP, if no PCP go to Urgent Care Center or Emergency Room Smoking is Dangerous to Your Health. Avoid second hand smoke Call the 24-hour hour crisis hotline for domestic abuse at Carmen Sanchez Jan 17, 2018 10:19
--- NOTE | 2018-01-17 10:22 | HHI.FF ---
Infusion Therapy Location of Infusion Therapy: [facility] Infusion Therapy Order Patient Information Patient Weight 88.6 kg Diagnosis: Coded Allergies: penicillin G (Unverified Allergy, Mild, 01/03/18) Administer Medication Cefazolin 2 grams IV q 8 hours Start Treatment: Jan 17, 2018 Stop Treatment: February 19, 2018 Administer Medication Gentamicin q 8 hours 90 mg IV Start Treatment: Jan 17, 2018 Stop Treatment: January 23, 2018 Additional Information Venous access: PICC Line Additional Instructions [x] Peripheral flush and dressing changes per protocol [x] Implanted port and central online affiliate marketing manager: * Implanted port: 10 ml Normal Saline followed by 5 ml Heparin 100 units/ml Heparin flush after each use and monthly to maintain. [] May leave port accessed during therapy. [] May leave peripheral site accessed for duration of therapy. [x] If patient has SOB or respiratory distress, check oxygen saturation. If less than 90% or clinical signs of respiratory distress, administer oxygen at 2 L/min. via nasal cannula and notify physician. [x] Anaphylaxis/Reaction orders: * Stop infusion. * Keep IV line open with saline flush. * Notify physician. * Monitor vital signs every 15 minutes until symptoms resolve. * Check Oxygen saturation; Oxygen at 2 L/min. via nasal cannula if less than 90% or clinical signs of respiratory distress. * Administer diphenhydramine (Benadryl) 25 mg IV STAT, (unless patient has received as pre-med). May repeat once, if necessary. * Solu-Cortef 250 mg IVP over 30-60 seconds, use 100 mg vials for each dissolution. * Epinephrine (1mg/1 ml) 0.3 mg subcutaneously or IVP now with any signs of respiratory distress. * Check with physician for new additional pre-med orders if patient is re- challenged or re-treated. [x] May remove PICC line when treatment complete, after confirming with Physician. [x] If the patient is admitted to the hospital, the ED, or transferred via [facility] , complete transfer form including medication reconciliation order sheet. Laboratory Tests Weekly Labs: CBC w/diff, CMP, Gentamicin Level (trough), Serum Magnesium Levels Additional Information blood culturesx 2 two weeks after all antibiotics are completed Roula Carrillo MD Jan 17, 2018 10:22
[2018-01-17] MEDS ORDERED: SOLU250I IV PUSH (10:24)
[2018-01-17] MEDS ORDERED: GENT20P IV (10:24)
[2018-01-17] MEDS ORDERED: CEFA2SOL IV (10:24)
[2018-01-17] MEDS ORDERED: EPIN1INJ21 IV PUSH (10:24)
[2018-01-17] MEDS ORDERED: EPIN1INJ21 SQ (10:24)
[2018-01-17] MEDS ORDERED: RIFA300C2 PO (10:25)
--- NOTE | 2018-01-17 10:28 | HHI.DS ---
Discharge Summary Admission Date Jan 03, 2018 at 23:13 Discharge Date: Jan 17, 2018 Admitting Diagnosis Sepsis, hyponatremia, alcohol withdrawal (1) Sepsis Diagnosis: Principal ICD Codes: A41.9 - Sepsis, unspecified organism Status: Acute (2) Alcohol withdrawal Diagnosis: Principal ICD Codes: F10.239 - Alcohol dependence with withdrawal, unspecified Status: Acute (3) Hyponatremia Diagnosis: Principal ICD Codes: E87.1 - Hypo-osmolality and hyponatremia Status: Acute (4) DM (diabetes mellitus) Diagnosis: Secondary ICD Codes: E11.9 - Type 2 diabetes mellitus without complications Status: Chronic (5) Hepatitis C, chronic Diagnosis: Secondary ICD Codes: B18.2 - Chronic viral hepatitis C Status: Chronic (6) HTN (hypertension) Diagnosis: Secondary ICD Codes: I10 - Essential (primary) hypertension Status: Chronic (7) Rash Diagnosis: Principal ICD Codes: R21 - Rash and other nonspecific skin eruption Consultants Dr. Lauren and Dr. Greene, orthopedic surgery Dr. Carrillo, ID Dr. Nj and Dr. Temple, cardiology Dr. Garcia, GI Procedures LEÓN 01/08..no obvious vegetations 01/07 Fluoroscopically guided left hip aspiration CT guided drainage of fluid collection attempted 01/15. 3-4ml of bloody fluid aspirated. Studies sent for culture. 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 Patient presented to the ER last night for visual hallucinations and fever, which patient denies at this time. Patient is a poor historian and information gathered from patient's mother who is at bedside, patient and prior charting. Patient has been feeling unwell for approximately the past 2 weeks. He has not been able to go to work due to left hip and back pain. Patient has also been falling and off balance. Patient reports he had a steroid injection at his PCP office 1.5 to 2 weeks ago. He states this pain has not improved since his injection. Patient does endorse fevers and chills but is unable to say when the fever or chills started. Patient denies SOB, chest pain N/V/D/C. Initial vital signs show heart rate 99, blood pressure 150/67, pulse ox 97% on room air, oral temp of 101.2F. CBC: WBC 14, hemoglobin 12.3, hematocrit 36.2, platelets 355, neutrophils 85%. CMP is remarkable for sodium 120, chloride 81, BUN 26, creatinine 1.23, GFR 62, random glucose 250. Alcohol level is negative. INR is 1.5. CT abdomen pelvis: CONCLUSION: 1. Probable left hip joint effusion with some inflammatory or edematous changes in the musculature around the anterior left hip. Would be better evaluated with MRI. 2. No acute findings within the abdomen and pelvis. Multiple calcified gallstones. Small hiatal hernia. CT lumbar spine: CONCLUSION: 1. Multiple disc bulges in the lower lumbar spine with mild encroachment on the lateral recesses and neural foramina. No acute fracture. Mild scoliosis. Mild degenerative disc disease. CBC/BMP: 01/15/18 0545 01/17/18 0530 Significant Findings Laboratory Tests Test 01/14/18 14:45 01/14/18 16:45 01/15/18 05:45 01/16/18 06:30 Gentamicin Level Peak 3.1 MCG/ML (4.0-8.0) Red Blood Count 3.90 MIL/MM3 (4.50-5.90) Hemoglobin 12.2 GM/DL (13.0-17.0) Hematocrit 35.3 % (39.0-51.0) Platelet Count 483 TH/MM3 (150-450) Monocytes (%) (Auto) 12.0 % (0.0-8.0) Prothrombin Time 13.9 SEC (9.8-11.6) 14.3 SEC (9.8-11.6) Sodium Level 134 MEQ/L (136-145) Test 01/17/18 05:30 Imaging Last Impressions Needle Aspiration CT 01/15/18 0000 Signed Impressions: Service Date/Time: Monday, January 15, 2018 14:23 - CONCLUSION: Uncomplicated left medial hip/groin fluid collection aspiration as above. Michael Cooley MD Lumbar Spine MRI 01/14/18 0000 Signed Impressions: Service Date/Time: Sunday, January 14, 2018 12:52 - CONCLUSION: Degenerative findings of the lower lumbar spine with mild left neural foraminal narrowing at L3-4. Central canal diameter within normal limits at all levels. Con Michel MD Hip MRI 01/14/18 0000 Signed Impressions: Service Date/Time: Sunday, January 14, 2018 12:52 - CONCLUSION: Inflammatory process centered at the left hip. Diffuse synovial enhancement, joint effusion , and periarticular edema/enhancement is seen. Findings are suspicious for septic arthritis. Medial periarticular peripheral enhancing fluid collection is suspicious for abscess. Con Michel MD Chest X-Ray 01/13/18 0000 Signed Impressions: Service Date/Time: Saturday, January 13, 2018 19:36 - CONCLUSION: Right arm PICC with tip in the superior vena cava. Sukhjinder Stephen MD Hip Aspiration/Injection 01/07/18 0000 Signed Impressions: Service Date/Time: Sunday, January 07, 2018 13:16 - CONCLUSION: Uncomplicated aspiration as above. Lázaro Yoo MD Lumbar Spine CT 01/03/18 0000 Signed Impressions: Service Date/Time: Wednesday, January 03, 2018 22:13 - CONCLUSION: 1. Multiple disc bulges in the lower lumbar spine with mild encroachment on the lateral recesses and neural foramina. No acute fracture. Mild scoliosis. Mild degenerative disc disease. Mani Robison MD Abdomen/Pelvis CT 01/03/18 0000 Signed Impressions: Service Date/Time: Wednesday, January 03, 2018 22:13 - CONCLUSION: 1. Probable left hip joint effusion with some inflammatory or edematous changes in the musculature around the anterior left hip. Would be better evaluated with MRI. 2. No acute findings within the abdomen and pelvis. Multiple calcified gallstones. Small hiatal hernia. Mani Robison MD PE at Discharge GENERAL: This is a well-nourished, well-developed patient, in no apparent distress. CARDIOVASCULAR: Regular rate and rhythm RESPIRATORY: Clear to auscultation. Breath sounds equal bilaterally. GASTROINTESTINAL: Abdomen soft, non-tender, nondistended. Normal active bowel sounds MUSCULOSKELETAL: pain with passive external rotation of left hip - improving NEURO: Alert & Oriented x4 to person, place, time, situation. 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 Tricuspid and pulmonary valves - echocardiogram (01/05/18). Hyperdynamic LV. EF 65-70%. No overt endocarditis identified. - CXR (01/03) Cardiomegaly. No acute findings CT abdomen pelvis (01/03) 1. Probable left hip joint effusion with some inflammatory or edematous changes in the musculature around the anterior left hip. Would be better evaluated with MRI. 2. No acute findings within the abdomen and pelvis. Multiple calcified gallstones. Small hiatal hernia. MRI Left Hip (01/05) probable hematoma at obturator internus and obturator externus. NO joint effusion - Pt seen by Gastroenterology. EGD (01/06). mild gastritis and esophagitis. no varices -IR for aspiration of fluid in left hip joint...not musculature on 01/07..ngtd -LEÓN 01/08..no obvious vegetations -Blood cx 01/03 mssa -Blood cx 01/05 mssa -Blood cx 01/08 ngtd x 5 days - Vancomycin (01/03 - 01/04) - Cefepime (01/04) - cont cefazolin, rifampin per ID. gent resumed - PICC placed - Lumbar MRI (01/14) --> NO acute findings - Repeat left hip MRI (01/14) - with contrast - edema throughout the hip ADDuctors and proximal quadriceps - possible septic joint vs myositis - fluid collection medial to the joint Adductor is again seen, no change from 01/05 MRI - Case reviewed with Radiology (01/14) - Case reviewed with Orthopedic Surgeon (01/14). No indication for surgical intervention. - Case reviewed with ID, Dr. Carrillo (01/14). - Case discussed between Dr. Carrillo and Dr. Yoo (01/14) - CT guided drainage of fluid collection attempted 01/15. 3-4ml of bloody fluid aspirated. Studies sent for culture. - (01/15) resume lovenox/coumadin. Could pt be changed to a novel anticoagulant. 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 - repeat INR in AM - supportive care - DVT prophylaxis - follow culture results from (01/15) aspiration. - awaiting final DC recommendations from ID - Plan to DC to SNF pending ID DC recommendations Alcohol withdrawal Scheduled Librium taper - completed CIWA protocol Hyponatremia Patient does have ETOH abuse Na on admission 120 -> (01/04) 0319 130 -> (01/04) 1000 130, 132 (01/05), 134 (01/15 ) DM (diabetes mellitus) Diabetic diet - HgA1C 5.9 (12/04/17) - home meds on hold. not on formulary. add levemir and cont ssi. Pulmonary embolism - prosthetic cardiac valves with post op PE - unclear if pt actually had PE. Could NOT find documentation for pulmonary embolism. - However per [facility] records pt did have a thrombus on porcine valve following porcine valve placement in 2015. - Initial INR 1.5 upon [facility] admission. do not believe that patient has been taking Coumadin as prescribed - 01/16/18 Discussed the case with Nunu COLIN at [facility] regarding changing patient to Xarelto as his patient does not seem to be complaint with Coumadin and INR is often not therapeutic. Nunu COLIN agrees with changing patient to Xarelto. Patient has follow up at [facility] in 6 months. Encouraged patient to follow up sooner to address the need of continued anticoagulation Hepatitis C, chronic - Pt has had a few visits with Dr. Jamal Mixon - Pt has NOT yet started treatment for Hep C. HTN (hypertension) titrate bp meds Continue patient's home Losartan 100 mg PO daily add Norvasc 5 mg PO daily Rash Rash on buttock consistent with saloni Patient reports rash with itching on bilateral buttock buttock examined barrier cream present difficult to fully see erythema noted with [place] rash noted Diflucan 100 mg PO daily for 5 days with nystatin powder Pt Condition on Discharge: Stable Discharge Disposition: Discharge to SNF Discharge Instructions DIET: Follow Instructions for: Diabetic Diet Activities you can perform: Weight Bearing as Saira Follow up Referrals: Clinic - 2 Months with [facility] cardiology Infectious Disease - [address] Albrecht PCP Follow-up - 1 Week New Medications: Cefazolin Inj (Cefazolin Inj) 2 Gm/50 Ml Bagp 2 GM IV Q8H for Infection for 35 Days, BAG 0 Refills Epinephrine Inj (Epinephrine Inj) 1 Mg/Ml (1 Ml) Inj 0.3 MG IV PUSH ONCE PRN for ALLERGIC REACTION, #1 VIAL Epinephrine Inj (Epinephrine Inj) 1 Mg/Ml (1 Ml) Inj 0.3 MG SQ ONCE PRN for ALLERGIC REACTION, #1 VIAL Give with any signs of respiratory distress. Gentamicin Inj (Gentamicin Inj) 20 Mg/2 Ml Inj 90 MG IV Q8HR for Infection for 7 Days, BAG Hydrocortisone Inj (Solu-Cortef Inj) 250 Mg/2 Ml Inj 250 MG IV PUSH ONCE PRN for ALLERGIC REACTION, #1 VIAL 0 Refills Give over 30-60 seconds. Insulin Aspart Inj (Novolog Inj) 1,000 Unit/10 Ml Vial 1-9 UNITS SQ ACHS for Blood Sugar Management, #10 ML 0 Refills Max dose at bedtime:( )units; sugars less than 70,(0)units; sugars 150-199,(1) unit; sugars 200-249,(3) units; sugars 250-299,(5) units; sugars 300-349,(7) units; sugars greater than 349,(9) units Lorazepam (Ativan) 1 Mg Tab 1 MG PO Q6H PRN for ANXIETY AND/OR AGITATION, #30 TAB 0 Refills Nifedipine ER 24 HR (Nifedipine ER 24 HR) 30 Mg Tab 30 MG PO BID for Blood Pressure Management, #60 TAB 0 Refills Rifampin (Rifampin) 300 Mg Cap 300 MG PO BID for Infection for 35 Days, #70 CAP 0 Refills Fluconazole (Diflucan) 100 Mg Tab 100 MG PO DAILY for Rash for 4 Days, #4 TAB 0 Refills Hydrocodone/Acetaminophen (Hydrocodone-Acetamin 10-325 mg) 10 Mg-325 Mg Tablet 1 TAB PO Q6H PRN for pain, #30 TAB 0 Refills Insulin Detemir Inj (Levemir Inj) 1,000 unit/ 10 ML Vial 20 UNITS SQ HS for blood glucose management for 30 Days, INJECTION Do not mix with any other Insulin. Rivaroxaban (Xarelto) 20 Mg Tab 20 MG PO DAILY for Blood Clot Prevention, #30 TAB [Nystatin Powder] () 15 APPLIC/15 GM POWD 1 APPLIC TOPICAL Q8HR for 8 Days apply to buttock rash Continued Medications: Aspirin DR (Aspir-81) 81 Mg Tabdr 1 TAB PO DAILY for Blood Clot Prevention Digoxin (Digoxin) 0.25 Mg Tab 0.25 MG PO DAILY for Regulate Heart Beat, #30 TAB 0 Refills Fluoxetine (Fluoxetine) 60 Mg Tab 60 MG PO DAILY, #30 TAB 0 Refills Losartan (Losartan) 50 Mg Tab 100 MG PO DAILY for Blood Pressure Management, #30 TAB 0 Refills Simvastatin (Simvastatin) 20 Mg Tab 20 MG PO DAILY for Cholesterol Management, #30 TAB 0 Refills Temazepam (Temazepam) 15 Mg Cap 15 MG PO HS PRN for INSOMNIA, #30 CAP 1 Refill (This prescription has been renewed) Discontinued Medications: Furosemide (Furosemide) 80 Mg Tab 40 MG PO BID for Blood Pressure Management, #60 TAB 0 Refills Insulin Degludec Inj (Tresiba Flextouch Pen Inj) 300 unit/3 ML Pen 42 UNITS SQ HS for Blood Sugar Management, #15 ML 0 Refills Liraglutide Inj (Victoza Inj) 18 Mg/3 Ml Pen 0.6 MG SQ DAILY, #1 PEN 0 Refills Warfarin (Warfarin) 5 Mg Tab 5 MG PO DAILY for Blood Clot Prevention, #30 TAB 0 Refills Additional Information Patient examined. Assessment and plan formulated with Carmen Sanchez PA-C. I agree with the above. Carmen Sanchez Jan 17, 2018 10:28 Peter Maddox DO Jan 20, 2018 05:31
[2018-01-17 12:00] VITALS: PULSE 99
[2018-01-17] MEDS ORDERED: HYDR-3583 PO (12:54)
[2018-01-17] MEDS ORDERED: TEMA15CA PO (12:54)
[2018-01-17] MEDS ORDERED: LORA-474 PO (12:54)
[2018-01-17] MEDS ORDERED: ACETAMINOPHEN/HYDROcodone 325 MG/5 MG TAB PO PRN (14:15)
[2018-01-17] MEDS ORDERED: ACETAMINOPHEN/HYDROcodone 325 MG/10 MG TAB PO PRN (14:15)
== END 2018-01-17 16:36 | DRG 872 ==
LOC: NEPD 15:39 → NEDA 23:13 → N05B 01-04 00:47
PROVIDERS: ADMIT Hospitalist; ATTEND Hospitalist
PROC: 0DB38ZX Excision of Lower Esophagus, Via Natural or Artificial Opening Endoscopic, Diagnostic (ICD-10-PCS; 2018-01-06)
PROC: 0DB78ZX Excision of Stomach, Pylorus, Via Natural or Artificial Opening Endoscopic, Diagnostic (ICD-10-PCS; 2018-01-06)
PROC: 0S9B3ZX Drainage of Left Hip Joint, Percutaneous Approach, Diagnostic (ICD-10-PCS; principal; 2018-01-07)
PROC: 02HV33Z Insertion of Infusion Device into Superior Vena Cava, Percutaneous Approach (ICD-10-PCS; 2018-01-13)
PROC: 0S9B3ZX Drainage of Left Hip Joint, Percutaneous Approach, Diagnostic (ICD-10-PCS; 2018-01-15)
DX: A41.01 Sepsis due to Methicillin susceptible Staphylococcus aureus (principal); E87.1 Hypo-osmolality and hyponatremia; I10 Essential (primary) hypertension; B37.2 Candidiasis of skin and nail; F10.230 Alcohol dependence with withdrawal, uncomplicated; E11.9 Type 2 diabetes mellitus without complications; I48.91 Unspecified atrial fibrillation; M25.452 Effusion, left hip; M51.16 Intervertebral disc disorders with radiculopathy, lumbar region; G89.29 Other chronic pain; B18.2 Chronic viral hepatitis C; E78.5 Hyperlipidemia, unspecified; R44.1 Visual hallucinations; F17.220 Nicotine dependence, chewing tobacco, uncomplicated; K44.9 Diaphragmatic hernia without obstruction or gangrene; I25.10 Atherosclerotic heart disease of native coronary artery without angina pectoris; K29.70 Gastritis, unspecified, without bleeding; K20.9 Esophagitis, unspecified; K80.20 Calculus of gallbladder without cholecystitis without obstruction; M47.816 Spondylosis without myelopathy or radiculopathy, lumbar region; F32.9 Major depressive disorder, single episode, unspecified; Z88.0 Allergy status to penicillin; Z87.74 Personal history of (corrected) congenital malformations of heart and circulatory system; Z95.3 Presence of xenogenic heart valve; Z95.5 Presence of coronary angioplasty implant and graft; Z95.1 Presence of aortocoronary bypass graft; Z86.711 Personal history of pulmonary embolism; Z91.81 History of falling; Z79.01 Long term (current) use of anticoagulants
CPT/HCPCS: 20610; 36569; 50390; 71045; 72132; 72158; 73721; 73723; 74177; 76937; 77002; 77012; 80048; 80053; 80162; 80170; 80307; 81001; 82565; 82948; 83735; 84295; 85025; 85610; 85730; 86403; 87040; 87070; 87147; 87186; 87205; 87804; 88305; 88312; 89051; 93005; 93306; 93312; 93320; 93325; 96360; 99152; 99153; A9579; J0690; J0692; J1580; J1650; J1815; J2060; J2250; J2270; J3010; J3370; J3480; J7030; J7040; J7050; Q9967

== ENCOUNTER 2018-01-28 07:41 | Emergency (ER) | payer OTHER ==
[~2018-01-28 07:41] MED LIST changes: +CEFA2SOL IV; +DIFL100T PO; +EPIN1INJ21 IV PUSH; +EPIN1INJ21 SQ; -FURO80TA PO; -GABA300C5 PO; +GENT20P IV; +HYDR-3583 PO; -INSU1INJ14 SQ; +LEVEMIR SQ; +LORA-474 PO; -MAGN250T9 PO; -MIRA33504 PO; +NIFE30TA61 PO; +NOVOLOGP2 SQ; +Nystatin Powder TOPICAL; -OXYC1CAP PO; +RIFA300C2 PO; +SOLU250I IV PUSH; -WARF-23 PO; +XARE20TA PO
[2018-01-28 07:59] VITALS: BP 138/79; PULSE 94; RESP 18; TEMP 99; O2SAT 98
--- NOTE | 2018-01-28 08:28 | PD ---
HPI Chief Complaint: Pain: Acute or Chronic Time Seen by Provider: 08:12 Travel History International Travel<30 days: No Contact w/Intl Traveler<30days: No Traveled to known affect area: No History of Present Illness HPI 52 y/o male presents left groin pain since . He states he was just in the hospital for sepsis. He states they thought it was coming from his left hip area because he had an injection and there through his primary for sciatica. He states that this pain feels different than his sciatica as that was more around the back and this is in quality pain is sharp. Severity is moderate. Pain is worse with movement. The front of his groin goes up into his left testicle. He denies any upper abdominal pain, fever, vomiting or any other concurrent complaints. He states that he has been doing new exercises at rehab and at first he thought it was that but he is not sure. Duration is couple of days. PFSH Past Medical History Hx Anticoagulant Therapy: Yes Atrial Fibrillation: Yes Anxiety: Yes Depression: Yes Cardiovascular Problems: Yes (CONGENITAL HEART DISEASE) High Cholesterol: Yes Diabetes: Yes Patient Takes Glucophage: No Diminished Hearing: No Hepatitis: Yes (C) Hypertension: Yes Past Surgical History Coronary Artery Bypass Graft: Yes Valve Replacement: Yes Social History Alcohol Use: Yes (2 BEERS/DAILY) Tobacco Use: Yes (DIP) Substance Use: No Allergies-Medications (Allergen,Severity, Reaction): Coded Allergies: penicillin G (Unverified Allergy, Mild, 01/03/18) Reported Meds & Prescriptions Reported Meds & Active Scripts Active Ativan (Lorazepam) 1 Mg Tab 1 Mg PO Q6H PRN Hydrocodone-Acetamin 10-325 mg (Hydrocodone/Acetaminophen) 10 Mg-325 Mg Tablet 1 Tab PO Q6H PRN Temazepam 15 Mg Cap 15 Mg PO HS PRN Rifampin 300 Mg Cap 300 Mg PO BID 35 Days Epinephrine Inj 1 Mg/Ml (1 Ml) Inj 0.3 Mg SQ ONCE PRN Give with any signs of respiratory distress. Epinephrine Inj 1 Mg/Ml (1 Ml) Inj 0.3 Mg IV PUSH ONCE PRN Solu-Cortef Inj (Hydrocortisone Sodium Succinate) 250 Mg/2 Ml Inj 250 Mg IV PUSH ONCE PRN Give over 30-60 seconds. Gentamicin Inj (Gentamicin Sulfate) 20 Mg/2 Ml Inj 90 Mg IV Q8HR 7 Days Cefazolin Inj (Cefazolin Sodium/Dextrose) 2 Gm/50 Ml Bagp 2 Gm IV Q8H 35 Days Levemir Inj (Insulin Detemir) 1,000 unit/ 10 ML Vial 20 Units SQ HS 30 Days Do not mix with any other Insulin. Novolog Inj (Insulin Aspart) 1,000 Unit/10 Ml Vial 1-9 Units SQ ACHS Max dose at bedtime:( )units; sugars less than 70,(0)units; sugars 150-199,(1) unit; sugars 200-249,(3) units; sugars 250-299,(5) units; sugars 300-349,(7) units; sugars greater than 349,(9) units Diflucan (Fluconazole) 100 Mg Tab 100 Mg PO DAILY 4 Days Nifedipine ER 24 HR (Nifedipine) 30 Mg Tab 30 Mg PO BID Xarelto (Rivaroxaban) 20 Mg Tab 20 Mg PO DAILY Reported Clonidine (Clonidine HCl) 0.2 Mg Tab 0.2 Mg PO Q6HR PRN Metoclopramide (Metoclopramide HCl) 5 Mg Tab 5 Mg PO TIDAC Aspir-81 (Aspirin) 81 Mg Tabdr 1 Tab PO DAILY Digoxin 0.25 Mg Tab 0.25 Mg PO DAILY Fluoxetine (Fluoxetine HCl) 60 Mg Tab 60 Mg PO DAILY Losartan (Losartan Potassium) 50 Mg Tab 100 Mg PO DAILY Simvastatin 20 Mg Tab 20 Mg PO DAILY Review of Systems Except as stated in HPI: all other systems reviewed are Neg Physical Exam Narrative GENERAL: 52 Year-old male in no apparent distress SKIN: Focused skin assessment warm/dry. No cellulitic changes to left groin HEAD: Atraumatic. Normocephalic. EYES: Pupils equal and round. No scleral icterus. No injection or drainage. ENT: No nasal bleeding or discharge. Mucous membranes pink and moist. NECK: Trachea midline. No JVD. No meningeal signs CARDIOVASCULAR: Regular rate and rhythm. No murmur appreciated. RESPIRATORY: No accessory muscle use. Clear to auscultation. Breath sounds equal bilaterally. GASTROINTESTINAL: Abdomen soft, non-tender, nondistended. MUSCULOSKELETAL: No obvious deformities. No clubbing. No cyanosis. No edema. Pain with palpation of left upper thigh that goes into groin, no pain with other joints , neurovascularly intact, no lacerations over, compartments soft. NEUROLOGICAL: Awake and alert. No obvious cranial nerve deficits. Motor grossly within normal limits. Normal speech. PSYCHIATRIC: Appropriate mood and affect; insight and judgment normal. RECTAL EXAM: Performed with enamel burner and after permission. No external hemorrhoid or fissure, stool is light brown, non-bloody. Data Data Last Documented VS Vital Signs Date Time Temp Pulse Resp B/P (MAP) Pulse Ox O2 Delivery O2 Flow Rate FiO2 01/28/18 11:15 94 18 171/92 (118) 99 Room Air 01/28/18 07:59 99.0 Orders Orders Complete Blood Count With Diff (01/28/18 08:11) Basic Metabolic Panel (Bmp) (01/28/18 08:11) Urinalysis - C+S If Indicated (01/28/18 08:11) Iv Access Insert/Monitor (01/28/18 08:11) Ct Abd/Pel W/O Iv Contrast (01/28/18 ) Act Partial Throm Time (Ptt) (01/28/18 08:18) Prothrombin Time / Inr (Pt) (01/28/18 08:18) Blood Culture (01/28/18 08:21) Lactic Acid (01/28/18 08:21) Acetamin-Hydrocod 325-5 Mg ([place] 5-325 (01/28/18 08:30) Femur (Ap & Lat/2vws) (01/28/18 ) Morphine Inj (Morphine Inj) (01/28/18 10:00) Hemoglobin (Hgb) (01/28/18 10:42) Ed Discharge Order (01/28/18 11:26) Labs Laboratory Tests Test 01/28/18 08:21 01/28/18 08:23 01/28/18 10:51 01/28/18 11:02 White Blood Count 6.9 TH/MM3 Red Blood Count 2.98 MIL/MM3 Hemoglobin 9.6 GM/DL 9.3 GM/DL Hematocrit 26.3 % Mean Corpuscular Volume 88.5 FL Mean Corpuscular Hemoglobin 32.2 PG Mean Corpuscular Hemoglobin Concent 36.4 % Red Cell Distribution Width 13.1 % Platelet Count 337 TH/MM3 Mean Platelet Volume 8.3 FL Neutrophils (%) (Auto) 66.9 % Lymphocytes (%) (Auto) 18.4 % Monocytes (%) (Auto) 13.0 % Eosinophils (%) (Auto) 1.1 % Basophils (%) (Auto) 0.6 % Neutrophils # (Auto) 4.6 TH/MM3 Lymphocytes # (Auto) 1.3 TH/MM3 Monocytes # (Auto) 0.9 TH/MM3 Eosinophils # (Auto) 0.1 TH/MM3 Basophils # (Auto) 0.0 TH/MM3 CBC Comment AUTO DIFF Differential Comment AUTO DIFF CONFIRMED Prothrombin Time 11.8 SEC Prothromb Time International Ratio 1.2 RATIO Activated Partial Thromboplast Time 31.0 SEC Blood Urea Nitrogen 12 MG/DL Creatinine 0.92 MG/DL Random Glucose 95 MG/DL Calcium Level 8.4 MG/DL Sodium Level 132 MEQ/L Potassium Level 3.6 MEQ/L Chloride Level 97 MEQ/L Carbon Dioxide Level 29.0 MEQ/L Anion Gap 6 MEQ/L Estimat Glomerular Filtration Rate 86 ML/MIN Lactic Acid Level 0.7 mmol/L Urine Color LIGHT-YELLOW Urine Turbidity CLEAR Urine pH 5.5 Urine Specific [place] 1.005 Urine Protein 30 mg/dL Urine Glucose (UA) NEG mg/dL Urine Ketones NEG mg/dL Urine Occult Blood NEG Urine Nitrite NEG Urine Bilirubin NEG Urine Urobilinogen LESS THAN 2.0 MG/DL Urine Leukocyte Esterase NEG Urine WBC 1 /hpf Microscopic Urinalysis Comment CULT NOT INDICATED MDM Medical Decision Making Medical Screen Exam Complete: Yes Emergency Medical Condition: Yes Medical Record Reviewed: Yes (Past history confirmed, patient recently in hospital with high-grade MSSA with left hip fluid collection) Interpretation(s) CBC & BMP Diagram 01/28/18 08:21 Calcium Level 8.4 L 01/28/18 10:51 Last 24 hours Impressions Femur X-Ray 01/28/18 0000 Signed Impressions: Service Date/Time: Sunday, January 28, 2018 08:53 - CONCLUSION: No fracture. James Trinidad MD Abdomen/Pelvis CT 01/28/18 0000 Signed Impressions: Service Date/Time: Sunday, January 28, 2018 08:59 - CONCLUSION: 1. Persistent small left hip effusion with persistent inflammatory stranding in the musculature around the anterior left hip. This was recently evaluated with MRI and aspirated with CT guidance. Correlation is recommended. 2. Otherwise, no acute abnormality in the abdomen or pelvis. 3. Redemonstration of cholelithiasis and IVC stent. Lázaro Yoo MD Differential Diagnosis UTI, recurrent fluid collection, strain Narrative Course We will check blood work, urinalysis, CT abdomen pelvis, left femur x-ray and dose with [place] and reevaluate Labs show new anemia. Bedside guaiac is negative. Patient is wanting something additional for pain so he was given morphine. Will discuss with [facility] physician. Patient denies any new complaints, all questions answered. Patient knows that follow up is incumbent on them and to return to the emergency room immediately if new or worsening symptoms develop. Patient given strict return precautions, vitals reviewed and are normal, agrees to further workup as an outpatient. [facility] Point of Care Internal Pos. & Neg. Controls: Passed Fecal Specimen Occult Blood: Negative Physician Communication Physician Communication dr blevins states patient can go home and will follow his hemoglobin and reevaluate, will continue antibiotics in rehab setting CT similar to prior Diagnosis Primary Impression: Groin pain Qualified Codes: R10.32 - Left lower quadrant pain Additional Impression: Anemia Qualified Codes: D64.9 - Anemia, unspecified Patient Instructions: General Instructions Additional Instructions: return as needed, follow with your doctor as scheduled Med/Other Pt SpecificInfo: No Change to Meds Disposition: 03 DISCHARGE TO SNF Condition: Stable Darby Aldridge MD January 28, 2018 08:28
[2018-01-28] MEDS ORDERED: ACETAMINOPHEN/HYDROcodone 325 MG/5 MG TAB PO ONE (08:30)
[2018-01-28 08:46] LABS: AUTOMATED NEUTROPHIL # 4.6 TH/MM3 (1.8-7.7); BASOPHIL % 0.6 % (0.0-2.0); EOSINOPHIL # 0.1 TH/MM3 (0-0.4); EOSINOPHIL % 1.1 % (0.0-4.0); HEMATOCRIT 26.3 % (39.0-51.0); HEMOGLOBIN 9.6 GM/DL (13.0-17.0); LYMPH % 18.4 % (9.0-44.0); LYMPHOCYTE # 1.3 TH/MM3 (1.0-4.8); MEAN CELL VOLUME 88.5 FL (80.0-100.0); MEAN CORPUSCULAR HEMOGLOBIN 32.2 PG (27.0-34.0); MEAN PLATELET VOLUME 8.3 FL (7.0-11.0); MONOCYTE # 0.9 TH/MM3 (0-0.9); NEUT % 66.9 % (16.0-70.0); PLATELET COUNT 337 TH/MM3 (150-450); RED BLOOD COUNT 2.98 MIL/MM3 (4.50-5.90); RED CELL DISTRIBUTION WIDTH 13.1 % (11.6-17.2); WHITE BLOOD COUNT 6.9 TH/MM3 (4.0-11.0)
[2018-01-28] MEDS ORDERED: METO5TAB PO (08:46)
[2018-01-28] MEDS ORDERED: CLON0.2T PO (08:46)
[2018-01-28 08:50] LABS: MEAN CORPUSCULAR HGB CONC 36.4 % (32.0-36.0)
[2018-01-28 08:51] LABS: INTERNATIONAL NORMALIZED RATIO 1.2 RATIO; PROTHROMBIN TIME - PATIENT 11.8 SEC (9.8-11.6)
[2018-01-28 09:00] LABS: CALCIUM 8.4 MG/DL (8.5-10.1); CREATININE 0.92 MG/DL (0.60-1.30)
--- NOTE | 2018-01-28 09:15 | RADRPT ---
EXAM DATE/TIME: 01/28/2018 08:53 [facility] COMPARISON: No previous studies available for comparison. INDICATIONS : Fell December landing on left hip, pain left groin. MEDICAL HISTORY : None. SURGICAL HISTORY : None. Vasectomy ENCOUNTER: Initial ACUITY: 1 month PAIN SCORE: 10/10 LOCATION: Left femur. FINDINGS: Two view examination of the left femur demonstrates no evidence of fracture or dislocation. Bony min eralization is normal. The soft tissue structures are intact with some minimal calcification along t he expected location of the superior labrum. Surgical clips projecting over the upper scrotal area p rior vasectomy. CONCLUSION: No fracture. James Trinidad MD on January 28, 2018 at 9:11 Board Certified Radiologist. This report was verified electronically.
--- NOTE | 2018-01-28 09:40 | RADRPT ---
EXAM DATE/TIME: 01/28/2018 08:59 [place] COMPARISON: CT ABDOMEN & PELVIS W CONTRAST, January 03, 2018, 22:13. INDICATIONS : Left groin and testicular pain for 1 week. Evaluate for renal stone. ORAL CONTRAST: No oral contrast ingested. RADIATION DOSE: 8.86 CTDIvol (mGy) MEDICAL HISTORY : Hypertension. SURGICAL HISTORY : CABG ENCOUNTER: Initial ACUITY: 1 week PAIN SCALE: 4/10 LOCATION: Left pelvis TECHNIQUE: Volumetric scanning of the abdomen and pelvis was performed. Using automated exposure control and ad justment of the mA and/or kV according to patient size, radiation dose was kept as low as reasonably achievable to obtain optimal diagnostic quality images. DICOM format image data is available electro nically for review and comparison. FINDINGS: LOWER LUNGS: The visualized lower lungs are clear. LIVER: Visualized portions are unremarkable. There are multiple gallstones in the gallbladder which is moder ately distended and stable from prior exam. SPLEEN: Normal size without lesion. PANCREAS: Within normal limits. KIDNEYS: Kidneys are symmetrical and stable in appearance without evidence for radiopaque renal calculi or hyd ronephrosis. ADRENAL GLANDS: Within normal limits. VASCULAR: There is no aortic aneurysm. Redemonstration of an IVC stent. BOWEL/MESENTERY: The stomach, small bowel, and colon demonstrate no acute abnormality. There is no free intraperitone al air or fluid. ABDOMINAL WALL: Within normal limits. RETROPERITONEUM: There is no lymphadenopathy. BLADDER: No wall thickening or mass. REPRODUCTIVE: Within normal limits. INGUINAL: There is no lymphadenopathy or hernia. MUSCULOSKELETAL: Inflammatory stranding and prominence of the left quadratus, obturator externus and pectineus muscles with punctate focus of air in that is incompletely imaged. There is also likely a small left joint e ffusion. Osseous structures are otherwise stable in appearance without interval fracture or new erosi ve changes. CONCLUSION: 1. Persistent small left hip effusion with persistent inflammatory stranding in the musculature aroun d the anterior left hip. This was recently evaluated with MRI and aspirated with CT guidance. Correla tion is recommended. 2. Otherwise, no acute abnormality in the abdomen or pelvis. 3. Redemonstration of cholelithiasis and IVC stent. Lázaro Yoo MD on January 28, 2018 at 9:25 Board Certified Radiologist. This report was verified electronically.
[2018-01-28 09:59] VITALS: BP 171/92; PULSE 92; RESP 18; O2SAT 98
[2018-01-28] MEDS ORDERED: MORPHINE SULFATE 4 MG/ML INJ IV PUSH ONE (10:00)
[2018-01-28 11:14] LABS: BILIRUBIN, URINE NEG (NEG); BLOOD, URINE NEG (NEG); GLUCOSE,URINE NEG (NEG); KETONE, URINE NEG (NEG); NITRITE,URINE NEG (NEG); PH, URINE 5.5 (5.0-8.5); URINE COLOR LIGHT-YELLOW (YELLW/STRAW); URINE LEUKOCYTE ESTERASE NEG (NEG)
[2018-01-28 11:15] VITALS: BP 171/92; PULSE 94; RESP 18; O2SAT 99
== END 2018-01-28 13:35 ==
LOC: NEPE 07:41
DX: R10.32 Left lower quadrant pain (principal); D64.9 Anemia, unspecified; E11.9 Type 2 diabetes mellitus without complications; E78.00 Pure hypercholesterolemia, unspecified; I10 Essential (primary) hypertension; I48.91 Unspecified atrial fibrillation; Z72.0 Tobacco use; Z79.01 Long term (current) use of anticoagulants; Z79.4 Long term (current) use of insulin
CPT/HCPCS: 73552; 74176; 80048; 81001; 83605; 85018; 85025; 85610; 85730; 87040; 96374; 99285; J2270

== ENCOUNTER 2018-03-07 15:56 | Emergency (ER) | payer OTHER ==
[~2018-03-07] VITALS: Ht 177.8 cm; Wt 88.0 kg
[~2018-03-07 15:56] MED LIST changes: +CLON0.2T PO; +METO5TAB PO; -Nystatin Powder TOPICAL
[2018-03-07 16:00] VITALS: BP 187/88; PULSE 108; RESP 22; TEMP 99.4; O2SAT 98
[2018-03-07 16:34] LABS: BASOPHIL % 0.3 % (0.0-2.0); EOSINOPHIL # 0.1 TH/MM3 (0-0.4); EOSINOPHIL % 0.5 % (0.0-4.0); HEMATOCRIT 33.8 % (39.0-51.0); HEMOGLOBIN 11.2 GM/DL (13.0-17.0); LYMPH % 13.8 % (9.0-44.0); LYMPHOCYTE # 1.6 TH/MM3 (1.0-4.8); MEAN CELL VOLUME 90.3 FL (80.0-100.0); MEAN CORPUSCULAR HGB CONC 33.2 % (32.0-36.0); MEAN PLATELET VOLUME 8.8 FL (7.0-11.0); MONO % 8.6 % (0.0-8.0); NEUT % 76.8 % (16.0-70.0); PLATELET COUNT 241 TH/MM3 (150-450); RED BLOOD COUNT 3.74 MIL/MM3 (4.50-5.90); RED CELL DISTRIBUTION WIDTH 15.6 % (11.6-17.2); WHITE BLOOD COUNT 11.7 TH/MM3 (4.0-11.0)
[2018-03-07 16:54] LABS: BILIRUBIN, URINE NEG (NEG); BLOOD, URINE SMALL (NEG); GLUCOSE,URINE >=500 mg/dL (NEG); KETONE, URINE NEG (NEG); NITRITE,URINE NEG (NEG); URINE COLOR Straw (YELLW/STRAW); URINE LEUKOCYTE ESTERASE NEG (NEG)
[2018-03-07 17:06] LABS: AST (GOT) 30 U/L (15-37); BICARBONATE 29.5 MEQ/L (21.0-32.0); BLOOD UREA NITROGEN 26 MG/DL (7-18); CALCIUM 8.4 MG/DL (8.5-10.1); CHLORIDE 97 MEQ/L (98-107); GLOMERULAR FILTRATION RATE 53 ML/MIN (>89); SODIUM (NA) 135 MEQ/L (136-145)
[2018-03-07 17:26] LABS: GLUCOSE,RANDOM 322 MG/DL (74-106); TOTAL BILIRUBIN ADULT 0.4 MG/DL (0.2-1.0)
[2018-03-07] MEDS ORDERED: FURO40TA PO (18:22)
[2018-03-07] MEDS ORDERED: GABA300C5 PO (18:22)
[2018-03-07] MEDS ORDERED: VICT18IN SQ (18:22)
[2018-03-07] MEDS ORDERED: BUPR100T4 PO (18:22)
[2018-03-07] MEDS ORDERED: AZEL1SPR2 EACH NARE (18:22)
[2018-03-07] MEDS ORDERED: SIMV40TA PO (18:22)
[2018-03-07] MEDS ORDERED: INSU1INJ14 SQ (18:22)
[2018-03-07] MEDS ORDERED: CEFU1TAB20 PO (18:22)
[2018-03-07] MEDS ORDERED: LYRI100C PO (18:22)
[2018-03-07] MEDS ORDERED: EMPA1TAB3 PO (18:22)
[2018-03-07] MEDS ORDERED: OMEP20TA93 PO (18:22)
[2018-03-07 18:25] VITALS: BP 140/70; PULSE 107; RESP 17; O2SAT 100
[2018-03-07] MEDS ORDERED: CLINDAMYCIN 900 MG/NS PREMIX 50 ML IV ONE (18:30)
[2018-03-07] MEDS ORDERED: ONDANSETRON ODT 4 MG TAB PO ONE (18:30)
[2018-03-07] MEDS ORDERED: SODIUM CHLORID 0.9% 500 ML INJ 500 ML IV ONE (18:30)
[2018-03-07] MEDS ORDERED: MORPHINE SULFATE 4 MG/ML INJ IV PUSH ONE (18:30)
[2018-03-07] MEDS ORDERED: ONDANSETRON ODT 4 MG TAB ONE (18:37)
--- NOTE | 2018-03-07 18:41 | PD ---
HPI Chief Complaint: Skin Problem Time Seen by Provider: 18:13 (Zbigniew Cordon) Time Seen by Provider: 18:54 (Michael Siegel MD) Travel History International Travel<30 days: No Contact w/Intl Traveler<30days: No Traveled to known affect area: No (Zbigniew Cordon) History of Present Illness HPI Patient comes to the emergency department complaining of cellulitis of his left great toe radiating up his foot he noticed earlier today. States that about a week ago he bumped his left toe and tore the toenail. Patient reports that prior to today was not having issues when he got the shower. Patient noticed a burning pain around his left toe is worse to palpation. Patient states he has a history of neuropathy believes this is why he did not noticed until today. Patient went to his primary care doctor sent to the emergency department for further treatment and evaluation. Patient does see a artist representative but does not know the name. (Zbigniew Cordon) PFSH Past Medical History Hx Anticoagulant Therapy: Yes (ELIQUIS) Atrial Fibrillation: Yes Anxiety: Yes Depression: Yes Cardiovascular Problems: Yes (CONGENITAL HEART DISEASE) High Cholesterol: Yes Diabetes: Yes Patient Takes Glucophage: No Diminished Hearing: No Hepatitis: Yes (C) Hypertension: Yes (Zbigniew Cordon) Past Surgical History Coronary Artery Bypass Graft: Yes Valve Replacement: Yes Other Surgery: Yes (vasectomy) (Zbigniew Cordon) Social History Alcohol Use: Yes (2 25oz BEERS/DAILY) Tobacco Use: Yes (DIP) Substance Use: No (Zbigniew Cordon) Allergies-Medications (Allergen,Severity, Reaction): Coded Allergies: penicillin G (Unverified Allergy, Mild, 01/03/18) Reported Meds & Prescriptions Reported Meds & Active Scripts Active Hydrocodone-Acetamin 10-325 mg (Hydrocodone/Acetaminophen) 10 Mg-325 Mg Tablet 1 Tab PO Q6H PRN Temazepam 15 Mg Cap 15 Mg PO HS PRN Novolog Inj (Insulin Aspart) 1,000 Unit/10 Ml Vial 1-9 Units SQ ACHS Max dose at bedtime:( )units; sugars less than 70,(0)units; sugars 150-199,(1) unit; sugars 200-249,(3) units; sugars 250-299,(5) units; sugars 300-349,(7) units; sugars greater than 349,(9) units Reported Victoza Inj (Liraglutide Inj) 18 Mg/3 Ml Pen 1.8 Mg SQ DAILY Tresiba Flextouch Pen Inj (Insulin Degludec Inj) 300 unit/3 ML Pen 160 Units SQ HS Lyrica (Pregabalin) 100 Mg Cap 100 Mg PO TID Omeprazole 20 Mg Tab 20 Mg PO DAILY Furosemide 40 Mg Tab 40 Mg PO BID Jardiance (Empagliflozin) 25 Mg Tab 25 Mg PO DAILY Simvastatin 40 Mg Tab 40 Mg PO HS Cefuroxime (Cefuroxime Axetil) 500 Mg Tab 500 Mg PO BID Bupropion HCl 100 Mg Tab 100 Mg PO DAILY Gabapentin 300 Mg Cap 300 Mg PO QID Azelastine Nasal [place] (Azelastine HCl) 0.1% [place] 2 [place] EACH NARE BID Aspir-81 (Aspirin) 81 Mg Tabdr 1 Tab PO DAILY Digoxin 0.25 Mg Tab 0.25 Mg PO DAILY Fluoxetine (Fluoxetine HCl) 60 Mg Tab 60 Mg PO DAILY Losartan (Losartan Potassium) 50 Mg Tab 100 Mg PO DAILY (Michael Siegel MD) Review of Systems Except as stated in HPI: all other systems reviewed are Neg (Zbigniew Cordon) Physical Exam Narrative GENERAL: Well-developed, overly nourished, in no acute distress, and non-ill appearing. SKIN: Patient is a small wound noted of the tip of his left great toe. There is mild erythematous and tender to palpation. No crepitus, afebrile, without drainage. HEAD: Atraumatic. Normocephalic. EYES: Pupils equal and round. EOMI. No scleral icterus. No injection or drainage. ENT: No nasal bleeding or discharge. Mucous membranes pink and moist. NECK: Trachea midline. Supple. No nuclear rigidity. CARDIOVASCULAR: Capillary refill less than 2 seconds. RESPIRATORY: No accessory muscle use. No respiratory distress. MUSCULOSKELETAL: No obvious deformities. No clubbing. No cyanosis. No edema. Full range of motion. NEUROLOGICAL: Awake and alert. No obvious cranial nerve deficits. Motor grossly within normal limits. Normal speech. PSYCHIATRIC: Appropriate mood and affect; insight and judgment normal. (Zbigniew Cordon) Data Data Last Documented VS Vital Signs Date Time Temp Pulse Resp B/P (MAP) Pulse Ox O2 Delivery O2 Flow Rate FiO2 03/07/18 19:05 99 16 183/81 (115) 100 Room Air 03/07/18 16:00 99.4 (Michael Siegel MD) Orders Orders Complete Blood Count With Diff (03/07/18 16:02) Comprehensive Metabolic Panel (03/07/18 16:02) Lactic Acid Sepsis Protocol (03/07/18 16:02) Urinalysis - C+S If Indicated (03/07/18 16:05) Clindamycin 900 Mg/Ns Premix (Cleocin 90 (03/07/18 18:30) Morphine Inj (Morphine Inj) (03/07/18 18:30) Ondansetron Odt (Zofran Odt) (03/07/18 18:30) Sodium Chlorid 0.9% 500 Ml Inj (Ns 500 M (03/07/18 18:30) Foot, Complete (Dml3mpi) (03/07/18 ) Ondansetron Odt (Zofran Odt) (03/07/18 18:37) Wound Care (03/07/18 19:45) Tetanus/Diphtheria Tox Adult (Tetanus/Di (03/07/18 19:45) (Michael Siegel MD) Labs Laboratory Tests Test 03/07/18 16:17 White Blood Count 11.7 TH/MM3 Red Blood Count 3.74 MIL/MM3 Hemoglobin 11.2 GM/DL Hematocrit 33.8 % Mean Corpuscular Volume 90.3 FL Mean Corpuscular Hemoglobin 30.0 PG Mean Corpuscular Hemoglobin Concent 33.2 % Red Cell Distribution Width 15.6 % Platelet Count 241 TH/MM3 Mean Platelet Volume 8.8 FL Neutrophils (%) (Auto) 76.8 % Lymphocytes (%) (Auto) 13.8 % Monocytes (%) (Auto) 8.6 % Eosinophils (%) (Auto) 0.5 % Basophils (%) (Auto) 0.3 % Neutrophils # (Auto) 9.0 TH/MM3 Lymphocytes # (Auto) 1.6 TH/MM3 Monocytes # (Auto) 1.0 TH/MM3 Eosinophils # (Auto) 0.1 TH/MM3 Basophils # (Auto) 0.0 TH/MM3 CBC Comment DIFF FINAL Differential Comment Urine Color Straw Urine Turbidity CLEAR Urine pH 6.0 Urine Specific [place] 1.010 Urine Protein 100 mg/dL Urine Glucose (UA) >=500 mg/dL Urine Ketones NEG mg/dL Urine Occult Blood SMALL Urine Nitrite NEG Urine Bilirubin NEG Urine Urobilinogen LESS THAN 2 mg/dL Urine Leukocyte Esterase NEG Urine RBC LESS THAN 1 /hpf Urine WBC LESS THAN 1 /hpf Blood Urea Nitrogen 26 MG/DL Creatinine 1.40 MG/DL Random Glucose 322 MG/DL Total Protein 8.2 GM/DL Albumin 3.0 GM/DL Calcium Level 8.4 MG/DL Alkaline Phosphatase 138 U/L Aspartate Amino Transf (AST/SGOT) 30 U/L Alanine Aminotransferase (ALT/SGPT) 32 U/L Total Bilirubin 0.4 MG/DL Sodium Level 135 MEQ/L Potassium Level 4.0 MEQ/L Chloride Level 97 MEQ/L Carbon Dioxide Level 29.5 MEQ/L Anion Gap 9 MEQ/L Estimat Glomerular Filtration Rate 53 ML/MIN Lactic Acid Level 1.1 mmol/L (Michael Siegel MD) [facility] Medical Decision Making Medical Screen Exam Complete: Yes Emergency Medical Condition: Yes Interpretation(s) Last Impressions Foot X-Ray 03/07/18 0000 Signed Impressions: CONCLUSION: No acute findings. Differential Diagnosis Fracture, cellulitis, osteomyelitis, wound check, contusion, abrasion Narrative Course Patient seen and examined. Initial laboratory is reviewed. Patient was given a dose of IV antibiotics and x-ray was obtained. Patient was given IV morphine for pain and Zofran for nausea. While awaiting labs and x-ray results. Patient is requesting more pain medication as well as to see the physician. Dr. Sigeel was made aware who saw and evaluated the patient, then discharged the patient. Please see his documentation for further detail. (Zbigniew Cordon) Medical Screen Exam Complete: Yes Emergency Medical Condition: Yes (Michael Siegel MD) Diagnosis Primary Impression: Toe contusion Qualified Codes: S90.112A - Contusion of left great toe without damage to nail , initial encounter Med/Other Pt SpecificInfo: Prescription(s) given (Michael iSegel MD) Scripts Hydrocodone-Acetaminophen ([place]) 5 Mg-325 Mg Tab 1 TAB PO Q6H Y for PAIN, #12 TAB 0 Refills Prov: Michael Siegel MD 03/07/18 Disposition: 01 DISCHARGE HOME Condition: Stable Zbigniew Cordon Mar 07, 2018 18:41 Michael Siegel MD Mar 07, 2018 19:51
[2018-03-07 18:45] LABS: ALT (GPT) 32 U/L (12-78)
[2018-03-07 18:47] LABS: ALKALINE PHOSPHATASE 138 U/L (45-117); TOTAL PROTEIN 8.2 GM/DL (6.4-8.2)
[2018-03-07 19:05] VITALS: BP 183/81; PULSE 99; RESP 16; O2SAT 100
--- NOTE | 2018-03-07 19:11 | RADRPT ---
EXAM DATE: 03/07/2018 7:04 PM EDT AGE/SEX: 52 years / Male INDICATIONS: Inflammation to right foot. Old injury to right great toe. CLINICAL DATA: This is the patient's initial encounter. Patient reports that signs and symptoms have been present for 1 week and indicates a pain score of 7/10. MEDICAL/SURGICAL HISTORY: Diabetes mellitus type II. None. COMPARISON: No prior exams available for comparison. FINDINGS: No acute fracture or dislocation. Vascular calcifications present. No radiopaque foreign bodies. CONCLUSION: No acute findings. Electronically signed by: Mani Robison MD 03/07/2018 7:10 PM EDT
[2018-03-07] MEDS ORDERED: TETANUS/DIPHTHERIA TOXOID ADULT 0.5 ML VIAL IM ONE (19:45)
[2018-03-07] MEDS ORDERED: NORC5TAB PO (19:51)
--- NOTE | 2018-03-14 07:46 | PD ---
Physical Exam Date Seen by Provider: Mar 07, 2018 Data Data Orders Orders Complete Blood Count With Diff (03/07/18 16:02) Comprehensive Metabolic Panel (03/07/18 16:02) Lactic Acid Sepsis Protocol (03/07/18 16:02) Urinalysis - C+S If Indicated (03/07/18 16:05) Clindamycin 900 Mg/Ns Premix (Cleocin 90 (03/07/18 18:30) Morphine Inj (Morphine Inj) (03/07/18 18:30) Ondansetron Odt (Zofran Odt) (03/07/18 18:30) Sodium Chlorid 0.9% 500 Ml Inj (Ns 500 M (03/07/18 18:30) Foot, Complete ([id number]) (03/07/18 ) Ondansetron Odt (Zofran Odt) (03/07/18 18:37) Wound Care (03/07/18 19:45) Tetanus/Diphtheria Tox Adult (Tetanus/Di (03/07/18 19:45) Ed Discharge Order (03/07/18 19:51) Labs Laboratory Tests Test 03/07/18 16:17 White Blood Count 11.7 TH/MM3 Red Blood Count 3.74 MIL/MM3 Hemoglobin 11.2 GM/DL Hematocrit 33.8 % Mean Corpuscular Volume 90.3 FL Mean Corpuscular Hemoglobin 30.0 PG Mean Corpuscular Hemoglobin Concent 33.2 % Red Cell Distribution Width 15.6 % Platelet Count 241 TH/MM3 Mean Platelet Volume 8.8 FL Neutrophils (%) (Auto) 76.8 % Lymphocytes (%) (Auto) 13.8 % Monocytes (%) (Auto) 8.6 % Eosinophils (%) (Auto) 0.5 % Basophils (%) (Auto) 0.3 % Neutrophils # (Auto) 9.0 TH/MM3 Lymphocytes # (Auto) 1.6 TH/MM3 Monocytes # (Auto) 1.0 TH/MM3 Eosinophils # (Auto) 0.1 TH/MM3 Basophils # (Auto) 0.0 TH/MM3 CBC Comment DIFF FINAL Differential Comment Urine Color Straw Urine Turbidity CLEAR Urine pH 6.0 Urine Specific [place] 1.010 Urine Protein 100 mg/dL Urine Glucose (UA) >=500 mg/dL Urine Ketones NEG mg/dL Urine Occult Blood SMALL Urine Nitrite NEG Urine Bilirubin NEG Urine Urobilinogen LESS THAN 2 mg/dL Urine Leukocyte Esterase NEG Urine RBC LESS THAN 1 /hpf Urine WBC LESS THAN 1 /hpf Microscopic Urinalysis Comment CULT NOT INDICATED Blood Urea Nitrogen 26 MG/DL Creatinine 1.40 MG/DL Random Glucose 322 MG/DL Total Protein 8.2 GM/DL Albumin 3.0 GM/DL Calcium Level 8.4 MG/DL Alkaline Phosphatase 138 U/L Aspartate Amino Transf (AST/SGOT) 30 U/L Alanine Aminotransferase (ALT/SGPT) 32 U/L Total Bilirubin 0.4 MG/DL Sodium Level 135 MEQ/L Potassium Level 4.0 MEQ/L Chloride Level 97 MEQ/L Carbon Dioxide Level 29.5 MEQ/L Anion Gap 9 MEQ/L Estimat Glomerular Filtration Rate 53 ML/MIN Lactic Acid Level 1.1 mmol/L MDM Supervised Visit with LIANNA: Yes Narrative Course Patient seen and examined by me in addition to Emiliano Cordon PAC. Patient has what appears to be an uncomplicated toe contusion on the tip of the toe. It is not warm, no erythema, no lymphangiitis. Labs reassuring. Patient already on antibiotics. I don't see indication to change regimen nor admission for a toe contusion. The skin at the point of the abrasion is actually intact. The nailbed is healing well. 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 Diagnosis Primary Impression: Toe contusion Patient Instructions: General Instructions, Foot Contusion (ED) Departure Forms: Tests/Procedures Scripts Hydrocodone-Acetaminophen ([place]) 5 Mg-325 Mg Tab 1 TAB PO Q6H Y for PAIN, #12 TAB 0 Refills Prov: Michael Siegel MD 03/07/18 Disposition: 01 DISCHARGE HOME Condition: Stable Michael Siegel MD Mar 14, 2018 07:46
== END 2018-03-07 20:16 | disposition home or self-care (01) ==
LOC: NEPE 15:56
DX: S90.112A Contusion of left great toe without damage to nail, initial encounter (principal); G62.9 Polyneuropathy, unspecified; W22.8XXA Striking against or struck by other objects, initial encounter; I48.91 Unspecified atrial fibrillation; E11.9 Type 2 diabetes mellitus without complications; I10 Essential (primary) hypertension; E78.00 Pure hypercholesterolemia, unspecified; F41.8 Other specified anxiety disorders; Z72.0 Tobacco use; Z79.01 Long term (current) use of anticoagulants; Z79.4 Long term (current) use of insulin; Z86.79 Personal history of other diseases of the circulatory system; Z87.19 Personal history of other diseases of the digestive system
CPT/HCPCS: 73630; 80053; 81001; 83605; 85025; 90471; 90714; 96365; 96375; 99284; J2270; J7040; 96372